=== PATIENT | female | born 1985 | race Caucasian/White ===

== ENCOUNTER 2018-09-21 10:02 | Emergency (ER) | payer OTHER, MEDICAID, SELFPAY ==
[2018-09-21 10:05] VITALS: BP 108/71; PULSE 75; RESP 14; TEMP 36.5; O2SAT 97; BMI 40.5
--- NOTE | 2018-09-21 10:56 | ED.PSYCH ---
HPI - Psych General Chief Complaint: Psychiatric Symptoms Stated Complaint: depression Time Seen by Provider: 09/21/18 10:32 Source: patient Mode of arrival: wheelchair Limitations: no limitations History of Present Illness HPI Narrative: Patient is a 33-year-old female with a history of anxiety and depression. She was at her mental health provider's office earlier today for a routine evaluation. It was during that time that the decision was made to send the patient to the emergency department for medical clearance given her prior cardiac history. It appears that the patient's anxiety depression has been worsening. She is currently under medication. Please see the mental health note from today for specifics. Patient states she is not suicidal. He is not homicidal. She has had suicidal thoughts in the past but not currently. She states she does need help. It was under the impression of the psychiatrist from her visit earlier today that she would benefit from an acute inpatient admission. Related Data Home Medications Medication Instructions Recorded Confirmed cholecalciferol (vitamin D3) 1,000 1,000 unit PO BID 02/16/18 09/21/18 unit capsule coenzyme Q10 100 mg capsule 100 mg PO QPM 02/16/18 09/21/18 levonorgestrel 20 mcg/24 hr (5 1 ea INTRAUTERINE DIRECTED each 02/16/18 09/21/18 years) intrauterine device propranolol 10 mg tablet 10 mg PO TID tab 02/16/18 09/21/18 topiramate 25 mg tablet 25 mg PO BID 03/16/18 09/21/18 Calcium Citrate And Vitamin D3 1 tab PO BID 09/21/18 09/21/18 ascorbic acid (vitamin C) 500 mg PO DAILY 09/21/18 09/21/18 ferrous sulfate 325 mg PO DAILY 09/21/18 09/21/18 fluoxetine 10 mg PO DAILY 09/21/18 09/21/18 levetiracetam 1,500 mg PO BID 09/21/18 09/21/18 lorazepam 0.25 mg PO BID-TID PRN 09/21/18 09/21/18 magnesium oxide 500 mg PO BID 09/21/18 09/21/18 pantoprazole 40 mg PO DAILY 09/21/18 09/21/18 potassium chloride 10 meq PO DAILY 09/21/18 09/21/18 triamcinolone acetonide 1 applic TOPICAL DIRECTED 09/21/18 09/21/18 Allergies Allergy/AdvReac Type Severity Reaction Status Date / Time pseudoephedrine AdvReac Intermediate heart Unverified 09/21/18 09:11 [PSEUDOEPHEDRINE] palpatations Sulfa (Sulfonamide AdvReac Mild HALLUCINATI Unverified 09/21/18 09:11 Antibiotics) ONS buspirone AdvReac leg Verified 09/21/18 09:11 tremors, increased anxiety Review of Systems Constitutional Denies headache(s) ENT Ears, Nose, Mouth, and Throat: Denies headache(s) Cardiovascular Denies chest pain and Denies dyspnea Respiratory Denies dyspnea Gastrointestinal Gastrointestinal: Denies abdominal pain Musculoskeletal Denies myalgias and Denies arthralgias Integumentary/Breasts Denies rash Neurologic Denies headache(s) Psychiatric Reports anxiety, Reports depression, Denies homicidal ideation and Denies suicidal ideation Hematologic/Lymphatic Denies easy bleeding and Denies easy bruising PFSH Medical History Anxiety (Acute) Depression (Acute) Surgical History No pertinent past surgical history (Acute) Social History Smoking Status: Never smoker Social History Smoking Status: Never smoker Exam Initial Vital Signs Initial Vital Signs: Vital Signs Temperature 97.7 F 09/21/18 10:05 Pulse Rate 75 09/21/18 10:05 Respiratory Rate 14 09/21/18 10:05 Blood Pressure 108/71 09/21/18 10:05 Pulse Oximetry 97 09/21/18 10:05 Const General: cooperative, healthy appearing, comfortable, well developed, well groomed and No acute distress Orientation: alert, awake and oriented x3 HENMT Head: normal to inspection and normocephalic Resp Effort & Inspection: normal respiratory effort Cardio Rate: regular rate Rhythm: regular rhythm GI Inspection: non-distended Palpation: soft and No firm Back/Spine/Pelvis Back: No CVA tenderness Skin Lesions: no lesions Rashes: no rashes Neuro General: alert, awake and oriented x3 Extrem General: normal to inspection and normal exam except as noted Psych Appearance: grossly normal and well kempt Course Orders Ordered: ED Orders 09/21/18 10:35 Consult to Eye Dropper Assembler Stat EKG-12 Lead Stat 09/21/18 10:54 Acetaminophen Stat Complete Blood Count AUTO DIFF Stat Comprehensive Metabolic Panel Stat Ethanol (ETOH) Stat Lipase Stat Partial Thromboplastin Time Stat Test Serum,Qual Stat Prothrombin Time INR Stat Salicylate Stat Thyroid Stimulating Hormone Stat 09/21/18 11:44 Urine Drug Screen, Rapid Stat Vital Signs - 8 hr 09/21/18 10:05 09/21/18 12:05 09/21/18 14:15 Temperature 97.7 F 98.3 F Pulse Rate 75 75 70 Respiratory Rate 14 18 16 Blood Pressure 108/71 Blood Pressure [Right Arm] 110/65 136/76 Pulse Oximetry 97 99 98 09/21/18 17:04 Temperature Pulse Rate 77 Respiratory Rate 18 Blood Pressure Blood Pressure [Right Arm] 104/66 Pulse Oximetry 99 MDM - Psych Lab Data Attestation: I reviewed the patient's lab results. Result diagrams: 09/21/18 10:54 09/21/18 10:54 Lab Results 09/21/18 09/21/18 09/21/18 Range/Units 10:54 10:54 10:54 WBC 5.7 (4.5-11.0) X10^3/uL RBC 3.84 L (4.0-5.2) X10^6/uL Hgb 12.1 (12.0-16.0) g/dL Hct 36.1 (36-46) % MCV 94.0 (80-100) fL MCH 31.4 (26-34) PG MCHC 33.4 (30-36) % RDW 13.7 (11.6-14.8) % Plt Count 214 (150-400) X10^3/uL Neut % (Auto) 43.5 L (50-75) % Lymph % (Auto) 47.8 H (25-40) % [place] % (Auto) 6.4 (3-14) % Eos % (Auto) 1.3 L (2-4) % Baso % (Auto) 1.0 (0-2) % Neut # (Auto) 2500 (2273-9121) /uL Lymph # (Auto) 2700 (8687-1873) /uL [place] # (Auto) 400 (0-900) /uL Eos # (Auto) 100 (0-450) /uL Baso # (Auto) 100 (0-100) /uL PT 11.1 (10.1-12.7) SECONDS INR 1.0 (0.9-1.3) APTT 34 (26.4-36.2) SECONDS Sodium 140 (137-145) mmol/L Potassium 4.1 (3.4-5.1) mmol/L Chloride 105 (98-107) mmol/L Carbon Dioxide 27 (22-32) mmol/L BUN 12 (7-17) mg/dL Creatinine 0.70 (0.52-1.04) mg/dL Estimated GFR > 60.0 (>60) mL/min BUN/Creatinine Ratio 17.1 (6-22) Glucose 84 (70-100) mg/dL Calcium 9.7 (8.4-10.2) mg/dL Total Bilirubin 0.5 (0.2-1.3) mg/dL AST 33 (14-36) IU/L ALT 53 H (9-52) IU/L Alkaline Phosphatase 70 (38-126) U/L Total Protein 7.0 (6.3-8.2) g/dL Albumin 4.3 (3.5-5.0) g/dL Globulin 2.7 (1.7-4.1) g/dL Albumin/Globulin Ratio 1.6 (1.0-2.8) Lipase (23-300) U/L TSH (0.47-4.68) uIU/mL Serum , Qual (Negative) Salicylates (<20) mg/dL Urine Opiates Screen (Negative) Ur Oxycodone Screen (Negative) Urine Methadone Screen (Negative) Acetaminophen < 10 L (10-30) ug/mL Ur Barbiturates Screen (Negative) U Tricyclic Antidepress (Negative) Ur Phencyclidine Scrn (Negative) Ur Amphetamines Screen (Negative) U Methamphetamines Scrn (Negative) Ur MDMA Scrn (Ecstasy) (Negative) U Benzodiazepines Scrn (Negative) Urine Cocaine Screen (Negative) U Marijuana (THC) Screen (Negative) Ethyl Alcohol < 10 mg/dL 09/21/18 09/21/18 09/21/18 Range/Units 10:54 10:54 10:54 WBC (4.5-11.0) X10^3/uL RBC (4.0-5.2) X10^6/uL Hgb (12.0-16.0) g/dL Hct (36-46) % MCV (80-100) fL MCH (26-34) PG MCHC (30-36) % RDW (11.6-14.8) % Plt Count (150-400) X10^3/uL Neut % (Auto) (50-75) % Lymph % (Auto) (25-40) % [place] % (Auto) (3-14) % Eos % (Auto) (2-4) % Baso % (Auto) (0-2) % Neut # (Auto) (8941-5944) /uL Lymph # (Auto) (3845-4070) /uL [place] # (Auto) (0-900) /uL Eos # (Auto) (0-450) /uL Baso # (Auto) (0-100) /uL PT (10.1-12.7) SECONDS INR (0.9-1.3) APTT (26.4-36.2) SECONDS Sodium (137-145) mmol/L Potassium (3.4-5.1) mmol/L Chloride (98-107) mmol/L Carbon Dioxide (22-32) mmol/L BUN (7-17) mg/dL Creatinine (0.52-1.04) mg/dL Estimated GFR (>60) mL/min BUN/Creatinine Ratio (6-22) Glucose (70-100) mg/dL Calcium (8.4-10.2) mg/dL Total Bilirubin (0.2-1.3) mg/dL AST (14-36) IU/L ALT (9-52) IU/L Alkaline Phosphatase (38-126) U/L Total Protein (6.3-8.2) g/dL Albumin (3.5-5.0) g/dL Globulin (1.7-4.1) g/dL Albumin/Globulin Ratio (1.0-2.8) Lipase 145 (23-300) U/L TSH 1.36 (0.47-4.68) uIU/mL Serum , Qual Negative (Negative) Salicylates < 1.0 (<20) mg/dL Urine Opiates Screen (Negative) Ur Oxycodone Screen (Negative) Urine Methadone Screen (Negative) Acetaminophen (10-30) ug/mL Ur Barbiturates Screen (Negative) U Tricyclic Antidepress (Negative) Ur Phencyclidine Scrn (Negative) Ur Amphetamines Screen (Negative) U Methamphetamines Scrn (Negative) Ur MDMA Scrn (Ecstasy) (Negative) U Benzodiazepines Scrn (Negative) Urine Cocaine Screen (Negative) U Marijuana (THC) Screen (Negative) Ethyl Alcohol mg/dL 09/21/18 Range/Units 11:44 WBC (4.5-11.0) X10^3/uL RBC (4.0-5.2) X10^6/uL Hgb (12.0-16.0) g/dL Hct (36-46) % MCV (80-100) fL MCH (26-34) PG MCHC (30-36) % RDW (11.6-14.8) % Plt Count (150-400) X10^3/uL Neut % (Auto) (50-75) % Lymph % (Auto) (25-40) % [place] % (Auto) (3-14) % Eos % (Auto) (2-4) % Baso % (Auto) (0-2) % Neut # (Auto) (6870-7422) /uL Lymph # (Auto) (0708-6882) /uL [place] # (Auto) (0-900) /uL Eos # (Auto) (0-450) /uL Baso # (Auto) (0-100) /uL PT (10.1-12.7) SECONDS INR (0.9-1.3) APTT (26.4-36.2) SECONDS Sodium (137-145) mmol/L Potassium (3.4-5.1) mmol/L Chloride (98-107) mmol/L Carbon Dioxide (22-32) mmol/L BUN (7-17) mg/dL Creatinine (0.52-1.04) mg/dL Estimated GFR (>60) mL/min BUN/Creatinine Ratio (6-22) Glucose (70-100) mg/dL Calcium (8.4-10.2) mg/dL Total Bilirubin (0.2-1.3) mg/dL AST (14-36) IU/L ALT (9-52) IU/L Alkaline Phosphatase (38-126) U/L Total Protein (6.3-8.2) g/dL Albumin (3.5-5.0) g/dL Globulin (1.7-4.1) g/dL Albumin/Globulin Ratio (1.0-2.8) Lipase (23-300) U/L TSH (0.47-4.68) uIU/mL Serum , Qual (Negative) Salicylates (<20) mg/dL Urine Opiates Screen Negative (Negative) Ur Oxycodone Screen Negative (Negative) Urine Methadone Screen Negative (Negative) Acetaminophen (10-30) ug/mL Ur Barbiturates Screen Negative (Negative) U Tricyclic Antidepress Negative (Negative) Ur Phencyclidine Scrn Negative (Negative) Ur Amphetamines Screen Negative (Negative) U Methamphetamines Scrn Negative (Negative) Ur MDMA Scrn (Ecstasy) Negative (Negative) U Benzodiazepines Scrn Positive H (Negative) Urine Cocaine Screen Negative (Negative) U Marijuana (THC) Screen Negative (Negative) Ethyl Alcohol mg/dL Urine Dip Bedside Urine Glucose Negative Bedside Urine Bilirubin - Negative Bedside Urine Ketone - Negative Urine Specific [place] 1.015 Bedside Urine Occult Blood - Negative Bedside Urine pH 8.0 Bedside Urine Protein - Negative Bedside Urine Urobilinogen - Negative Bedside Urine Nitrite - Negative Bedside Urine Leukocytes - Negative Esterase ECG Data Attestation: I personally reviewed and interpreted this ECG as follows: Prior ECG tracings: not available for review Interpretation: Atrially paced Ventricular rate is 75 Normal axis Normal QRS Normal QTC No ST T wave changes MDM Narrative Medical decision making narrative: Patient is medically cleared. Patient is voluntary. Social work is involved. Patient has ambulated since being here in the emergency department. Social work has evaluated the patient. Awaiting bed placement. Care turned over to night ED provider at change of shift. Discharge Plan Departure Prescriptions: No Action coenzyme Q10 [Co Q-10] 100 mg capsule 100 mg PO QPM RF: 0 cholecalciferol (vitamin D3) 1,000 unit capsule 1,000 unit PO BID RF: 0 levonorgestrel [Mirena] 20 mcg/24 hr (5 years) intrauterine device 1 ea Intrauterine DIRECTED RF: 0 propranolol 10 mg tablet 10 mg PO TID RF: 0 topiramate [Topamax] 25 mg tablet 25 mg PO BID RF: 0 potassium chloride 10 mEq tablet extended release 10 meq PO DAILY RF: 0 triamcinolone acetonide 0.1 % cream 1 applic Topical DIRECTED RF: 0 lorazepam 0.5 mg Tablet 0.25 mg PO BID-TID PRN (Reason: anxiety/seizures) RF: 0 ferrous sulfate 325 mg (65 mg iron) Tablet 325 mg PO DAILY RF: 0 ascorbic acid (vitamin C) 500 mg Tablet,Chewable 500 mg PO DAILY RF: 0 magnesium oxide 500 mg Tablet 500 mg PO BID RF: 0 levetiracetam 1,000 mg tablet 1,500 mg PO BID RF: 0 pantoprazole [address] For Susp In Packet 40 mg PO DAILY RF: 0 Calcium Citrate And Vitamin D3 1 tab PO BID RF: 0 fluoxetine 10 mg tablet 10 mg PO DAILY RF: 0
--- NOTE | 2018-09-21 10:59 | PC.NURSE ---
Mother has stepped away. Curtain open. In view of nursing station. Ordered lunch. Denies needs at this time.
[2018-09-21 11:07] LABS: Add Manual Diff / Slide Review NO; Basophils Absolute Auto 100 /uL (0-100); Eosinophils Absolute Auto 100 /uL (0-450); Eosinophils Percent Auto 1.3 % (2-4); Hematocrit 36.1 % (36-46); Hemoglobin 12.1 g/dL (12.0-16.0); Lymphocytes Absolute Auto 2700 /uL (1100-4500); Lymphocytes Percent Auto 47.8 % (25-40); Mean Corpuscular HGB Conc 33.4 % (30-36); Mean Corpuscular Hemoglobin 31.4 PG (26-34); Monocytes Absolute Auto 400 /uL (0-900); Monocytes Percent Auto 6.4 % (3-14); Neutrophils Absolute Auto 2500 /uL (1500-7000); Neutrophils Percent Auto 43.5 % (50-75); Platelet Count 214 X10^3/uL (150-400); Red Blood Cell Count 3.84 X10^6/uL (4.0-5.2); Red Cell Distribution Width 13.7 % (11.6-14.8); White Blood Cell Count 5.7 X10^3/uL (4.5-11.0)
[2018-09-21 11:13] LABS: Prothrombin Time 11.1 SECONDS (10.1-12.7)
[2018-09-21 11:15] LABS: PTT Partial Thromboplastin Tim 34 SECONDS (26.4-36.2)
[2018-09-21 11:20] LABS: Acetaminophen < 10 ug/mL (10-30); Alanine Aminotransferase 53 IU/L (9-52); Albumin 4.3 g/dL (3.5-5.0); Albumin Globulin Ratio 1.6 (1.0-2.8); Alkaline Phosphatase 70 U/L (38-126); Aspartate Aminotransferase 33 IU/L (14-36); BUN Creatinine Ratio 17.1 (6-22); Bilirubin Total 0.5 mg/dL (0.2-1.3); Blood Urea Nitrogen 12 mg/dL (7-17); Calcium 9.7 mg/dL (8.4-10.2); Carbon Dioxide 27 mmol/L (22-32); Chloride 105 mmol/L (98-107); Estimated Glomerular Filt Rate > 60.0 mL/min (>60); Ethanol (ETOH) < 10 mg/dL; Globulin 2.7 g/dL (1.7-4.1); Glucose 84 mg/dL (70-100); HEMOLYSIS < 15 (0-50); Lipase 145 U/L (23-300); Potassium 4.1 mmol/L (3.4-5.1); Sodium 140 mmol/L (137-145)
[2018-09-21 11:22] LABS: Salicylate < 1.0 mg/dL (<20)
[2018-09-21 11:28] LABS: Pregnancy Test Serum,Qual Negative (Negative)
[2018-09-21 11:53] LABS: Urine Amphetamines Negative (Negative); Urine Barbiturates Negative (Negative); Urine Benzodiazepines Positive (Negative); Urine Cocaine Negative (Negative); Urine MDMA Negative (Negative); Urine Methamphetamines Negative (Negative); Urine Morphine/Opi cutoff 2000 Negative (Negative); Urine Phencyclidine Negative (Negative); Urine Tetrahydrocannabinol Negative (Negative)
[2018-09-21 11:54] LABS: Urine Methadone Negative (Negative); Urine Oxycodone Negative (Negative); Urine Tricyclic Antidepressant Negative (Negative)
[2018-09-21 11:55] LABS: Thyroid Stimulating Hormone 1.36 uIU/mL (0.47-4.68)
[2018-09-21 12:05] VITALS: BP 110/65; PULSE 75; RESP 18; TEMP 36.8; O2SAT 99
--- NOTE | 2018-09-21 12:13 | PC.NURSE ---
Of note: Mobility, pt requires minimal assist w/ ADLs. Uses walker and /or wheel chair for mobility.
[2018-09-21 14:15] VITALS: BP 136/76; PULSE 70; RESP 16; O2SAT 98
--- NOTE | 2018-09-21 16:39 | CM.SWNOTE ---
PRINTED CIRCUIT LAYOUT TAPER Note: Received request from Emergency Department RN/Rosa for psychiatric placement today. Per notes patient sent from mental health appointment with Dr. Esteban for suicidal ideations. Patient is a 33yr old female with h/o TBI in 2017. Patient also with h/o depression and anxiety. PRINTED CIRCUIT LAYOUT TAPER met with patient and her Mother at bedside. Patient confirms that she would like to voluntarily go to inpatient mental health for hallucinations and suicidal ideations. Patient reports that she has been hearing satan and that he has been telling her to kill myself. Patient last heard voices on Thursday09-19-18. Patient denies any previous inpatient psychiatric placements. Patient has actively been going to counseling and seeing Dr. Esteban for medication. Per patient her depression has worsened over the last few months. Patient uses walker at baseline, otherwise I in all ADL's. Patient does not believe that she will have any issues at facility with her walker. Spoke briefly with Dr. Esteban via the telephone. She confirms that she would like patient to go inpatient if bed can be found. Notified patient, Dr. Esteban and Mother that inpatient voluntary bed would need to be found. Placed call and fax to the following facilities: [facility], [facility], and [facility]. ED/PRINTED CIRCUIT LAYOUT TAPER came on at 4:00pm and case transferred to her for continued follow up and hopeful placement this evening. P: Pending. ROGERS Jane
[2018-09-21 17:04] VITALS: BP 104/66; PULSE 77; RESP 18; O2SAT 99
--- NOTE | 2018-09-21 17:33 | PC.NURSE ---
Per Dr. Barahona, pt may take her own medications, mother dispensing.
--- NOTE | 2018-09-21 19:51 | CM.SWNOTE ---
ED FOLDER GLUER OPERATOR NOTE: Presenting Problem: Pt is a 33 yo woman who looks approximately her stated age. The reason for coming to the ED is that pt's psychiatrist wanted her to be medically cleared in the emergency department and to be hospitalized. Pt is in agreement and stated that she has been increasingly depressed. She admitted to having some AH in the past, but not currently. They have been of concern since it was a voice telling her to kill herself. Precipitating Events: Pt reported that she had been in counseling with [facility] for 7 years until she retired this past June. She does have a new therapist, but is just in the beginning stages of getting to know her. Additional stressors include, her psychiatrist going on maternity leave next week, her father has advanced dementia, a difficult relationship with her sister who stays every weekend at the house she lives in with her mother and an anoxic brain injury that occurred 2016. Pt has a TBI, but according to her mother is almost at baseline except for her decision making ability. Mental Status Exam: Pt is a 33 yo female who looks to be her stated age. Speech is a little slow, but normal for rate and rhythm and is clear and goal directed. Afffect is flat, at times labile. Mood is depressed and anxious. SI/HI. Pt admits to thoughts of wanting to , but has no plan. She has expressed having some AH with a male voice stating I want to kill myself Pt denied HI, but mother reported anger outbursts. Pt is Ox4, but no formal memory testing was conducted. Goal: FOLDER GLUER OPERATOR is conducting bed search as pt, her mother and her psychiatrist feel that this is needed for pt to be safe. Discharge Planning/Care Management ED Crisis Response Assessment Start: 09/21/18 19:43 Freq: Status: Active Protocol: Document 09/21/18 19:43 (Rec: 09/21/18 19:51 [id number]) ED Crisis Response Assessment FOLDER GLUER OPERATOR Assessment Type Risk of Suicide Reason for FOLDER GLUER OPERATOR Referral Pt referred by Dr Esteban for inpatient hospitalization. Pt has expressed SI without a plan. Referred by Deanna Bragg, FOLDER GLUER OPERATOR has seen pt today and this FOLDER GLUER OPERATOR picked up pt when shift in ED began. Presenting Problem SI, no plan. Pt stated to this PHARMACOVIGILANCE SAFETY EXPERT that she hears a male voice in her head saying I want to kill myself. Pt also reported that she has thoughts and voices about wanting to be with God or Konstantin and thinks this male voice is Satan. According to pt and her mother (who was present in the room the first time SW spoke with pt) depression has been worse in the last couple of months. Mental health diagnosis Major depressive disorder, recurrent episode, severe with anxious distress. Generalized ANziety Disorder, Persistent Depressive disorder, Tricotillomania VOA/CMS check No Suicidal thoughts Yes: no plan Past Suicidal thoughts Yes Current Suicidal thoughts No Current plan for self harm No Thoughts of harm to others No: Mother stated pt has said she had some HI towards mother . Current thoughts of harming others No Current Risk factors Marital and family difficulties Relevant Medical History pace maker, TBI, Crisis Plan FOLDER GLUER OPERATOR has doen bed search, but no bed has been found. Pt to remain in the ED overnight with search to continue tomorrow. ED Psychiatric Symptoms Assessment Start: 09/21/18 10:07 Freq: Status: Active Protocol: Document 09/21/18 10:28 [facility] (Rec: 09/21/18 10:31 [facility] [id number]) Psychiatric Symptoms Assessment Symptoms/Complaint Feels Depressed Duration Getting Worse History Of Same Yes: Seeing Dr. Esteban Context Unknown Improves With Nothing Worsens With Nothing Associated Psychiatric Symptoms None Associated Symptoms Denies Other Symptoms Insomnia If Self Harm Admits Thoughts of Self Harm Details of Plan Admits to thoughts of self harm such as picking at skin ( noted healing scabs on extremities) but denies active suicidal self harm. Level of Consciousness Alert Appropriate Awake Patient Orientation Name Age Birthday Month Date Year Day of Week Place Situation Patient Behavior/Mood Cooperative Fatigued Flat Ability to Follow Directions Good Patient Cognition Impaired No: pt a/o x 3. has h/o TBI and has caregiver but can participate in care. Affect Description Anxious Calm Depressed Flat Hallucination Type None Delusion Description Not Present Thought Process: Normal Depressive Symptoms Changes in Appetite Difficulty Concentrating Difficulty Sleeping Difficulty Making Decisions Feelings of Worthlessness Hopelessness Increased Anxiety Increased Fatigue Increased Irritability Insomnia Loss of Energy Loss of Interest in Activities Low Self Esteem Recurrent Thoughts of or Suicide Unhappiness Major Depressive Episode Yes Feelings of Hopelessness Yes Suicidal Ideation Vague Suicide Plan No Plan Homicidal Ideation None Nausea/Vomiting None Document 09/21/18 19:37 [facility] (Rec: 09/21/18 19:42 BG [id number]) Psychiatric Symptoms Assessment Symptoms/Complaint Suicidal Ideation Duration Constant Associated Psychiatric Symptoms Auditory Hallucinations Suicidal Ideation If Self Harm Admits Thoughts of Self Harm Level of Consciousness Alert Appropriate Awake Patient Orientation Name Age Birthday Place Situation Patient Behavior/Mood Anxious Cooperative Crying/Tearful Fearful Flat Patient Cognition Impaired Yes: Pt has TBI which ( according to her mother) impacts decision making. Affect Description Anxious Depressed Labile Patient Appearance Well Groomed Hallucination Type Auditory Delusion Description Not Present Thought Process: Normal Goal-directed Depressive Symptoms Hopelessness Increased Anxiety Low Self Esteem Recurrent Thoughts of or Suicide Major Depressive Episode Yes Suicidal Ideation Vague Suicide Plan No Plan Homicidal Ideation None
--- NOTE | 2018-09-21 20:11 | CM.SWNOTE ---
BED SEARCH [facility], and [facility] in [place] denied pt even though Dr Esteban contacted them after they received our information. [facility] [phone]. They said no inplanted devices, but if we did not find a bed, to call again on Thursday. [facility] [phone]- They called and requested more information, but said they thought pt would be too medically complicated. [facility] [phone] Left message Caryn Stevens [phone] No beds today. Call tomorrow to check. Caryn Warner: [phone] no beds today. Call tomorrow. I was also told that did not have beds. [facility] did not call back, but most likely pt too medically complicated. I did not contact [facility] I assumed she would be too complex for them.
--- NOTE | 2018-09-21 21:48 | PC.NURSE ---
Dr. Galloway received phone call from [facility] declining admission for transfer of pt.
[2018-09-21 22:00] VITALS: BP 114/72; PULSE 75; RESP 20; O2SAT 99
--- NOTE | 2018-09-21 22:20 | PC.NURSE ---
Pt took normal scheduled evening home medications per Dr Nilesh Mays.
--- NOTE | 2018-09-21 23:32 | PC.NURSE ---
[facility] called back to decline accepting pt as transfer due to complex neuro and cardiac medical hx. Dr Galloway aware.
[2018-09-22 06:24] VITALS: BP 115/64; PULSE 75; RESP 18; TEMP 37; O2SAT 96
--- NOTE | 2018-09-22 09:05 | CM.SWNOTE ---
Reviewed chart. Spoke w/ Dr Barahona this morning. Consuelo remains actively suicidal w/letter written by her describing intent in self harm. Discussed and reviewed efforts towards psychiatric placement w/ MARCI Rodriguez, TRIMMING MACHINE OPERATOR working closely w/ Dr Esteban. Sophia able to continue efforts this morning to investigate barriers to placement including too medically complicated and seek open beds in support of this 33 yo requiring safe placement. Following closely. Cha Alvarez TRIMMING MACHINE OPERATOR
--- NOTE | 2018-09-22 09:51 | PC.NURSE ---
pt requested to take her meds. Dr. Barahona approved for her to take her home meds. I stood next to her and helped to dispense the medications from her vials/bottles. pt took the following meds: lorazepam 0.25mg propanolol 10 mg Topamax 25 mg Keppra 1500 mg prozac 10 mg protonix 40mg potassium Chloride ER 10 meq Iron 65 mg Calcium Citrate 200 mg with Vit. D3,, 250 iu Vitamin D3 1000 iu Magnesium oxide 500 mg capsule Vit. c chewable 500mg the meds were locked in the locker when finished dispensing.
[2018-09-22 09:59] VITALS: BP 102/63; PULSE 75; RESP 14; TEMP 36.7; O2SAT 96
--- NOTE | 2018-09-22 11:59 | PC.NURSE ---
pt states that she feels like her blood sugar is low. worried that she might be a diabetic. reported that she was feeling light headed and dizzy during her bath. blood sugar checked and poc was 94. lunch arrived and pt was eating her food. reports she feels so much better knowing that her sugar is normal.
--- NOTE | 2018-09-22 13:23 | PC.NURSE ---
switched out ER jo[facility]ina to a inpatient bed. pt requested that I turn off all controls on the beds since i can't think or move with that butt noise
[2018-09-22 13:37] VITALS: BP 105/66; PULSE 75; RESP 12; O2SAT 95
--- NOTE | 2018-09-22 14:51 | CM.SWNOTE ---
Addendum entered by ROGERS Scott 09/22/18 15:36: Dr Esteban in direct communication w/ ER now. This TOOLMAKER HELPER will f/u tomorrow morning if Francie remains here. Per email from Sophia Rascon: [facility] [phone] [facility] [phone] Dr. Ewing, Line Camera Operator returned call and Dr. Esteban to call back re: [phone] Left two messages re: bed availability [facility] [phone] no beds [phone] no beds [facility] [phone] Dr. Esteban left message and left message [facility] [phone] spoke with Nelly in Admissions. Requested that SW?s fax (fax # [phone]) clinical information. Awaiting reply. Original Note: Reviewed chart this morning to understand efforts taken to secure a voluntary placement on behalf of this 33 yo. No beds found at this time. Contacted ROGERS Rodriguez, [facility] who is working closely w/ Dr Esteban in the outpt setting. According to Sophia, Dr Esteban continues to feel strongly that there is no secure and safe outpt plan for Consuelo today and Sophia offered assistance in placement efforts, this TOOLMAKER HELPER reviewed notes briefly w/ Sophia. Also provided number for the A bed placement line P# [phone]. As of [id number], Sophia has attempted [facility]. She also has contacted [facility]. This TOOLMAKER HELPER requested Bree/ ER PACKAGING CLERK to fax clinical to [facility] at F# [phone] earlier this afternoon. REY Lee RN updates this TOOLMAKER HELPER- [facility] has declined Consuelo for admission. Sophia now awaiting word from [facility] in case there is a voluntary bed placement available. The question will now be: Next Steps? This TOOLMAKER HELPER requested Sophia review w/ Dr Esteban today what is the LRO if there is not a psychiatric bed available? Dr Esteban is awaiting the of her baby and there is no psychiatrist that will take her place until next week. This TOOLMAKER HELPER unable to respond to any additional requests or people in the ER d/t caseload demands. This TOOLMAKER HELPER recommending Dr Esteban contact ER physician to discuss either admitting Consuelo vs LRO today if mom will take Consuelo home. All TBD as psychiatric beds are very limited today and Consuelo's acuity will likely not make her a strong competitive candidate for beds. She also has medical complicators which make psychiatric bed placement even more difficult. Following closely. ROGERS Scott
--- NOTE | 2018-09-22 15:22 | PC.NURSE ---
Pt continues to be calm, cooperative w/ staff. She has a depressed affect and states she would not feel comfortable going home but feels safe in ED and is happy to wait in ED for bed placement. Echo is eating and drinking but prefers not to have choices, I have a lot of trouble making decisions.... Writing reflects continued suicidal ideation. Pt denies any plan and states she would not try to harm herself in ED. Writing also reflects hearing a male voice in her head but denies verbally to this rfp writer. Noted picking at skin, verbally redirected w/o success. Mother states this is a long standing habit. No s/s of infection at this time. Echo is in a high visibility room. Her mother is visiting ad janae as is pastoral counseling. She has been offered a shower but instead preferred to get washed up in room. Echo is taking her home medications. She denies pain / discomfort. Sleeps on and off. Mother & Echo updated on current bed search. Echo wishes to stay in ED and wait for bed availability. Mother verbalized agreement.
[2018-09-22 15:58] VITALS: BP 120/79; PULSE 75; RESP 16; O2SAT 99
--- NOTE | 2018-09-22 16:52 | PC.NURSE ---
pt requested that she have us remove the bed and give her the stretcher back. stretcher returned to pt. pt is now eating dinner
--- NOTE | 2018-09-22 18:20 | PC.NURSE ---
Received call from Dr. Esteban (Psychiatry). Updated on patient status. Dr. Esteban suggested stopping fluoxitine and starting cymbalta 20 mg po daily to start tomorrow. Discussed w/ patient who agreed w/ plan of care.
[2018-09-22] MEDS: ACETAMINOPHEN 325 MG TABLET 650 MG PO (18:29)
[2018-09-22 18:30] VITALS: BP 125/80; PULSE 75; RESP 19; TEMP 36.6; O2SAT 100
--- NOTE | 2018-09-22 19:54 | PC.NURSE ---
regular meds ordered via Dr. Galloway. Pt has been taking home medications w/ nursing supervision.
[2018-09-22 22:12] VITALS: BP 111/76; PULSE 75; RESP 17; O2SAT 97
[2018-09-23] MEDS: LORazepam 0.5 MG TABLET 0.25 MG PO ×2 (08:43→20:54)
[2018-09-23] MEDS: levETIRAcetam 250 MG TABLET 1500 MG PO ×2 (08:44→20:54)
[2018-09-23] MEDS: PANTOPRAZOLE 20 MG TABLET 40 MG PO (08:45)
[2018-09-23] MEDS: DULOXETINE 20 MG CAPSULE PO (08:46)
[2018-09-23] MEDS: PROPRANOLOL 10 MG TABLET PO ×3 (08:47→20:54)
[2018-09-23] MEDS: POTASSIUM CHLORIDE 10 MEQ TAB PO (08:47)
[2018-09-23] MEDS: CALCIUM CITRATE 200 MG TABLET PO ×2 (08:47→20:54)
[2018-09-23] MEDS: FERROUS SULFATE 325 MG TABLET PO (08:48)
[2018-09-23] MEDS: CHOLECALCIFEROL (VITAMIN D3) 1,000 UNIT TABLET 1000 UNIT PO ×2 (08:48→20:54)
[2018-09-23] MEDS: ASCORBIC ACID 500 MG TABLET PO ×2 (08:49→20:55)
[2018-09-23] MEDS: MAGNESIUM OXIDE 400 MG TABLET PO ×2 (08:50→20:54)
--- NOTE | 2018-09-23 08:56 | PC.NURSE ---
dbas at bedside talking with patient.
--- NOTE | 2018-09-23 09:26 | PC.NURSE ---
Doctor Esteban at bedside talking to patient about plan of care.
[2018-09-23] MEDS: TOPIRAMATE 25 MG TABLET PO ×2 (09:32→20:57)
--- NOTE | 2018-09-23 10:46 | PC.NURSE ---
Patient has been able to walk to the bathroom with a front wheeled walker but gets dizzy once we get to the bathroom. I have been using a wheelchair to get her back to her room safely.
--- NOTE | 2018-09-23 11:06 | P.CONS_ITS ---
History of Present Illness Date Patient Seen: 09/23/18 Time Patient Seen: 09:30 Chief complaint: depression Reason for consult: Psychiatric Care Requesting provider: Shubham Barahona Narrative: CC: ?it?s up & down? HOSPITAL COURSE: Walked over to ED on 09/21/18 following outpatient visit with myself, with acute harm for self and severe depression symptoms, plan to pursue inpatient psychiatric admission. Medically clear, with stable vitals, stable labs, and EKG WNL. EKG 09/21/18 with QTc 413 Social Work has been active in exploring options for inpatient placement, but no bed has been found after 48 hr. Some facilities have limitations due to her medical conditions, also limited bed availability in the region currently. Discussed a plan with ED team to stop fluoxetine & start duloxetine 20mg today, and to check EKG for QTc later today. COLLATERAL FROM STAFF: Cooperative in the ED & no assistance needed with ADLs. Episode of VH overnight. Ambulating with rollator. INTERVIEW: Echo reports feeling ok at the moment in the ED this morning, but still up & down. She reports some visual hallucinations overnight, none this morning. She continues to have thoughts of being with Konstantin, or a man?s voice in her head telling her she should end her life. She reports feeling safe in the ED, but not safe going home today. Even though there are things at home that she misses (mentions her father & dog) she states that she would be overwhelmed just walking in the door wouldn?t feel safe, becomes tearful in our discussion. We reviewed that we have not been able to locate a hospital bed, but will continue to work on that today. We also discussed that we may need a backup plan in case we are unable to find an inpatient psychiatric bed & she expresses understanding, although becomes more withdrawn discussing certain options. We discussed crisis respite as a possibility, as well as trying to maximize any services available through her current caregiver, at [facility], or with her insurance plan. She would like to ultimately look at a plan for a new living situation, but becomes very withdrawn when considering talking to her mother about his. She is willing to have discussions about what resources for more support could look like. We discussed starting a new medication while she is in the ED, and reviewed information on duloxetine in the context of risk of long QT (low compared to other agents), common SE (nausea on empty stomach), and efficacy for depression & anxiety. She expresses understanding of these & willingness to continue plan to start with lowest dose of 20mg & titrate slowly if tolerating. Spoke with mother Frances via telephone, and reviewed that if hospital bed was not found, that we may need to see if another safe plan could be established. Also reviewed that we are trying to explore any additional resources that might be available, whether through [facility], or [facility], or [facility]. iTno expresses understanding of this, appreciation for the help, and willingness to discuss a safe alternative to hospitalization if necessary & appropriate. PFS Medical History Anxiety (Acute) Depression (Acute) Surgical History No pertinent past surgical history (Acute) Social History Smoking Status: Never smoker Social History Smoking Status: Never smoker Comment: [facility] Updates: Father with dementia, pt lives with mother in [place], no active substance use, has psychotherapist in [place] PERTINENT CHART REVIEW: Diagnoses by Dr. Khalil (pt?s neurologist): Anoxic encephalopathy, intractable chronic migraine, functional neurological symptom disorder with attacks/seizures (on keppra) Diagnoses by Dr. Ramirez (cardiology): h/o cardiac arrest with ICD in place, long QT syndrome caused by medication. Initial episode in 2011 while on venlafaxine, abilify, desipramine, promethazine; subsequent episode of cardiac arrest in Apr 2017 (on Prozac, abilify, lamictal). Myoclonus felt to be related to anoxic encephalopathy and not seizure disorder, confirmed with video EEG at in January 2018. Meds Home Medications Medication Instructions Recorded Confirmed Type cholecalciferol (vitamin D3) 1,000 1,000 unit PO BID 02/16/18 09/21/18 History unit capsule coenzyme Q10 100 mg capsule 100 mg PO QPM 02/16/18 09/21/18 History levonorgestrel 20 mcg/24 hr (5 1 ea INTRAUTERINE DIRECTED each 02/16/18 09/21/18 History years) intrauterine device propranolol 10 mg tablet 10 mg PO TID tab 02/16/18 09/21/18 History topiramate 25 mg tablet 25 mg PO BID 03/16/18 09/21/18 History Calcium Citrate And Vitamin D3 1 tab PO BID 09/21/18 09/21/18 History ascorbic acid (vitamin C) 500 mg PO DAILY 09/21/18 09/21/18 History ferrous sulfate 325 mg PO DAILY 09/21/18 09/21/18 History levetiracetam 1,500 mg PO BID 09/21/18 09/21/18 History lorazepam 0.25 mg PO BID-TID PRN 09/21/18 09/21/18 History magnesium oxide 500 mg PO BID 09/21/18 09/21/18 History pantoprazole 40 mg PO DAILY 09/21/18 09/21/18 History potassium chloride 10 meq PO DAILY 09/21/18 09/21/18 History triamcinolone acetonide 1 applic TOPICAL DIRECTED 09/21/18 09/21/18 History Allergies Allergy/AdvReac Type Severity Reaction Status Date / Time pseudoephedrine AdvReac Intermediate heart Verified 09/22/18 20:46 [PSEUDOEPHEDRINE] palpatations Sulfa (Sulfonamide AdvReac Mild HALLUCINATI Verified 09/22/18 20:46 Antibiotics) ONS buspirone AdvReac leg Verified 09/21/18 09:11 tremors, increased anxiety Review of Systems Review of Systems REVIEW OF SYSTEMS: +skin picking & itching, +mild MEADOWS, denies dizziness, denies nausea, no specific pain mentioned, +feeling shakiness at times, psych as in HPI All other systems negative. Exam Vital Signs (past 8 hours): Oxygen Delivery Method Room Air Narrative Exam Narrative: MENTAL STATUS EXAM Appearance: Neatly groomed with long brown hair pulled back, wearing hospital garb, appears stated age; arms covered in scabs Behavior: Calm, fair-limited eye contact, +psychomotor slowing; closes her eyes at times & often withdraws when feeling overwhelmed; trembling intermittently through visit Gait: none observed, sitting in bed Speech: slow speech, normal volume, +latency at times, monotone Mood: ?Terrible? Affect: Congruent with content, dysphoric, constricted range, tearful Thought Process: concrete Thought Content: +SI with strong desire but no plan, no evidence of HI, intermittent AH & VH, possible delusional content Attention: Attentive to interview Orientation: Oriented to person place and time Memory: Intact for interview, not formally tested Insight: Limited Judgment: Limited Objective Labs Result Diagrams: 09/21/18 10:54 09/21/18 10:54 Assessment & Plan Assessment & Plan narrative: ASSESSMENT: Echo Samayoa is a 33-year-old female with complex medical history including triple X syndrome, anoxic brain injury following cardiac arrest in 2017, functional neurological disorder (nonepileptic seizures), long QT syndrome (medication-induced) with history of cardiac arrest in 2012 & 2017 & subsequent ICD placement. She has a long history of depression and anxiety that have been difficult to manage, with sensitivity to medications, and dependent traits. Depression symptoms have been worsening over the past several months, with multiple attempts at medication changes, referral to IOP, neuropsych testing, starting with new therapist, all of which have either not been successful or not provided benefit. Clinic presentation 09/21/18 raised concern for psychotic symptoms & escalating risk of self-harm, and so we proceeded with plan for inpatient admission for safety & stabilization. I wonder if medications for other conditions could also be worsening anger & contributing to depression; she is on keppra for functional epilepsy, although I wonder if this could be influencing psychiatric symptoms. Greatly appreciate the ED team?s care of this patient & collaboration while we are looking for an inpatient bed. We have agreed to initiate a medication change, to stop fluoxetine & start duloxetine to target depression. Duloxetine has low known risk of QT prolongation, is a medication she has not tried previously, with more calming effect compared to fluoxetine & venlafaxine that have not been effective in the past. We are starting with low dose of 20mg, with plan to titrate slowly if tolerating. I am hesitant to use atypical antipsychotic agents given some past reactions & risk of QT prolongation with these agents. I continue to feel that Consuelo is suffering from severe depression with anxious distress & new intermittent psychotic symptoms (AH & delusions), and that her pattern of worsening symptoms over the past 2-3 months, 2 interactions with EMS in the past 1-2 weeks, and new suicidal ideation place her at high risk of self- harm outside of the hospital, and particularly at home as a place that continues to be an active stressor for her based on several factors. The most appropriate care can be provided on an inpatient psychiatric unit. However, in the event that a bed cannot be located, which has been the case so far based on several units declining, we may need to establish another plan. Patient?s mother has expressed willingness to discuss safe plan for return home with additional resources but only if we can have safeguards in place & a bed on an inpatient unit cannot be found. DIAGNOSES: Severe major depressive disorder with anxious distress, (rule out with psychotic features) Suicidal ideation Generalized anxiety disorder Long QT with h/o cardiac arrest, ICD in place Functional neurologic disorder (nonepileptic seizures) RECOMMENDATIONS: - Continue duloxetine 20mg QAM - Check EKG for QTc today - Appreciate SW help in continuing to locate an inpatient psychiatric bed, I am available for doc to doc if helpful - Continue to assess safety in the ED Thank you for involving me in this patient's care. I will plan to continue to follow patient while she is receiving care in our ED. Please contact me with questions or concerns at [phone]. Time Spent With Patient Time with patient: Greater than 35 minutes
[2018-09-23 13:21] VITALS: BP 110/71; PULSE 75; RESP 17; O2SAT 95
--- NOTE | 2018-09-23 13:34 | PC.NURSE ---
patient automobile service station manager mcginnis curious if new medication could alter her urine smell. Discussed symptom with provider and reassured patient that is not generally a side effect.
--- NOTE | 2018-09-23 15:21 | PC.NURSE ---
Patient reports some dizziness with ambulating to bathroom with walker. Assisted back to room with wheelchair. Vital signs rechecked.
[2018-09-23 15:48] VITALS: BP 105/71; PULSE 75; RESP 16; O2SAT 97
--- NOTE | 2018-09-23 15:52 | PC.NURSE ---
pt concerned of infection because her urine had a different smell, nurse ordered urine dip.
--- NOTE | 2018-09-23 17:09 | PC.NURSE ---
Patient mother remains at bedside. Patient provided dinner. Calm and cooperative.
[2018-09-23 18:04] VITALS: BP 105/69; PULSE 75; RESP 18; O2SAT 99
--- NOTE | 2018-09-23 18:13 | PC.NURSE ---
Patient sitting reading to her mother in semi dark room, patient suddenly felt like the room had moved, it was still intact but it felt like it was different, I know it is dark but it felt like the sunshine was shining in the room Patient reports feeling scared about the symptoms. Vital signs check all WNL. Patient alert and oriented. Denies auditory or visual hallucinations at this time. Reassured patient, dimmed lights and encouraged patient to rest. Placed on dark shades to help. Provider aware.
--- NOTE | 2018-09-23 18:39 | PC.NURSE ---
Spoke with mineral ore processing labourer at [facility], unable to accept patient at this time secondary to them feeling like the patients acuity is higher than their units ability at this time.
--- NOTE | 2018-09-23 19:23 | PC.NURSE ---
Discussed patient case with Shubham at [facility] for screening. They will review case and call back.
[2018-09-23 21:00] VITALS: PULSE 108; RESP 20; TEMP 36.6; O2SAT 98
[2018-09-24 01:32] VITALS: BP 110/66; PULSE 94; RESP 18; O2SAT 98
[2018-09-24 05:50] VITALS: BP 114/70; PULSE 75; RESP 20; TEMP 36.6; O2SAT 96
--- NOTE | 2018-09-24 07:26 | PC.NURSE ---
Obtained patient care. Patient resting in room. Reports having a decent night, able to get some rest. Reassured patient that breakfast was ordered. Plan for Dr Esteban to come in today and help figure out the plan of care. Patient reports intermittent hallucinations. Denies any current thoughts of SI.
--- NOTE | 2018-09-24 07:33 | PC.NURSE ---
Patient internal communications manager light asking for gloves to wear to help herself stop picking at her arms. Provided patient with medical gloves. Reports feeling slightly more anxious at this time.
--- NOTE | 2018-09-24 08:15 | PC.NURSE ---
Dr Esteban at bedside.
--- NOTE | 2018-09-24 08:27 | CM.SWNOTE ---
On Behalf of Sophia Rascon CORPORATE SECURITIES RESEARCH ANALYST, GEOPHYSICAL LABORATORY SUPERVISOR working on placement efforts in collaboration w/ Dr Esteban. Outpt resources also being researched: Inpatient Hospitals: [facility] [phone] no beds [place] [phone] no beds; on wait list [facility] [phone] no beds; faxed clinicals to Marly[facility]/L[facility] ([phone]); might be beds on 09.24 [place] [phone] will call after treatment team (10am) if bed; clinicals were faxed 09.22 [facility]ined [facility] Declined [place] Declined [facility] [phone] Declined Outpatient Resources: [facility] System Markup Clerk [phone] (Case Management Option) Spoke with Nya Cleary CM who reportedly speaks with client monthly. She submitted a request for the client to be assigned to a behavioral health caser. Client qualifies for all mental health services through [facility]. [facility] [phone] Spoke with staff who said that client can come in Thursday, Thursday or 8:30am to 10:30am to compete assessment and receive approved level of service. [facility] Resources/Res. Care Left message for June Mcdaniel, clark contact [phone] Esteban, patient has in-home caregiving assistance with [facility] [phone] Spoke with [facility] staff. Patient must call to request admission/complete screening, and hospital to send clinicals. Allowed 5 to 7 days of mental health stabilization. Updated Steffi, ED Director and Dr. Paulo Esteban will return on 09.24
[2018-09-24] MEDS: LORazepam 0.5 MG TABLET 0.25 MG PO ×3 (09:00→20:20)
[2018-09-24] MEDS: FERROUS SULFATE 325 MG TABLET PO (09:01)
[2018-09-24] MEDS: levETIRAcetam 250 MG TABLET 1500 MG PO ×2 (09:02→20:21)
[2018-09-24] MEDS: MAGNESIUM OXIDE 400 MG TABLET PO ×2 (09:03→20:21)
[2018-09-24] MEDS: ASCORBIC ACID 500 MG TABLET PO ×2 (09:03→20:21)
[2018-09-24] MEDS: PROPRANOLOL 10 MG TABLET PO ×3 (09:04→20:20)
[2018-09-24] MEDS: POTASSIUM CHLORIDE 10 MEQ TAB PO (09:04)
[2018-09-24] MEDS: DULOXETINE 20 MG CAPSULE PO (09:04)
[2018-09-24] MEDS: CHOLECALCIFEROL (VITAMIN D3) 1,000 UNIT TABLET 1000 UNIT PO ×2 (09:04→20:21)
[2018-09-24] MEDS: CALCIUM CITRATE 200 MG TABLET PO ×2 (09:05→20:21)
[2018-09-24] MEDS: TOPIRAMATE 25 MG TABLET PO ×2 (09:06→20:20)
[2018-09-24] MEDS: PANTOPRAZOLE 20 MG TABLET 40 MG PO (09:07)
--- NOTE | 2018-09-24 10:59 | PM.CN ---
History of Present Illness Date Patient Seen: 09/24/18 Time Patient Seen: 07:50 Chief complaint: depression Reason for consult: Psychiatric Care Requesting provider: Shubham Barahona Narrative: Chart Review: VSS, stable overnight, reporting intermittent hallucinations. Nursing notes also mention discussion with [facility] Samira for screening. No SW notes yesterday yet posted, this provider received verbal info that Caryn Stevens may be able to consider. 2 doses lorazepam 0.25mg prn yesterday Repeat EKG this AM with QTc 402 Interview: Echo reports feeling ok so far this morning, I woke her up for interview but states she was up previously. Eating ok. Some dizziness yesterday, but denies other new physical symptoms. Also states she has been drinking less water than typical. Denies hearing man's voice in the past 24 hr. Reports episodes of visual hallucinations including seeing the figure of Konstantin outside her room, some shadows but not vivid imagery. ER environment has been lower stimulation than at home, which is surprising to her. She denies planned to end her life currently, continues to have thoughts of being better off or with Konstantin. We reviewed how she might feel if she were to return home. She states that she would be happy to be back in some ways, but also knows that she would feel much more overwhelmed than she does now. She is hopeful that she would feel safe if she returned home but she is not sure, knows that things get very stressful and overwhelming and that is when she has more suicidal thoughts and worsening outbursts. Notes that when her mom comes to the ED her stress level increases. No side effects that she has noticed with duloxetine after 1st dose yesterday. No nausea. We reviewed a plan to recheck EKG today for QTC. [facility] Medical History Anxiety (Acute) Depression (Acute) Surgical History No pertinent past surgical history (Acute) Social History Smoking Status: Never smoker Social History Smoking Status: Never smoker Meds Home Medications Medication Instructions Recorded Confirmed Type cholecalciferol (vitamin D3) 1,000 1,000 unit PO BID 02/16/18 09/21/18 History unit capsule coenzyme Q10 100 mg capsule 100 mg PO QPM 02/16/18 09/21/18 History levonorgestrel 20 mcg/24 hr (5 1 ea INTRAUTERINE DIRECTED each 02/16/18 09/21/18 History years) intrauterine device propranolol 10 mg tablet 10 mg PO TID tab 02/16/18 09/21/18 History topiramate 25 mg tablet 25 mg PO BID 03/16/18 09/21/18 History Calcium Citrate And Vitamin D3 1 tab PO BID 09/21/18 09/21/18 History ascorbic acid (vitamin C) 500 mg PO DAILY 09/21/18 09/21/18 History ferrous sulfate 325 mg PO DAILY 09/21/18 09/21/18 History levetiracetam 1,500 mg PO BID 09/21/18 09/21/18 History lorazepam 0.25 mg PO BID-TID PRN 09/21/18 09/21/18 History magnesium oxide 500 mg PO BID 09/21/18 09/21/18 History pantoprazole 40 mg PO DAILY 09/21/18 09/21/18 History potassium chloride 10 meq PO DAILY 09/21/18 09/21/18 History triamcinolone acetonide 1 applic TOPICAL DIRECTED 09/21/18 09/21/18 History Allergies Allergy/AdvReac Type Severity Reaction Status Date / Time pseudoephedrine AdvReac Intermediate heart Verified 09/22/18 20:46 [PSEUDOEPHEDRINE] palpatations Sulfa (Sulfonamide AdvReac Mild HALLUCINATI Verified 09/22/18 20:46 Antibiotics) ONS buspirone AdvReac leg Verified 09/21/18 09:11 tremors, increased anxiety Review of Systems Constitutional Constitutional: Denies anorexia, Denies difficulty sleeping and Denies excessive sweating Eyes Eyes: Reports other visual disturbances and Reports sensitivity to light ENT Ears, Nose, Mouth, and Throat: No abnormal hearing and Yes dizziness Cardiovascular Cardiovascular: Denies chest pain Respiratory Respiratory: Denies cough Gastrointestinal Gastrointestinal: Denies nausea Musculoskeletal Musculoskeletal: Denies numbness Neurologic Neurologic: Denies abnormal hearing, Reports dizziness and Denies numbness Psychiatric Psychiatric: Reports as per HPI Endocrine Endocrine: Denies excessive sweating Exam Vital Signs (past 8 hours): - 09/24/18 05:50 Temperature 97.8 F Pulse Rate 75 Respiratory Rate 20 Blood Pressure [Right Arm] 114/70 Pulse Oximetry 96 Oxygen Delivery Method Room Air Narrative Exam Narrative: MENTAL STATUS EXAM Appearance: Neatly groomed with long brown hair pulled back, wearing hospital garb, appears stated age; arms covered in scabs Behavior: Calm, fair-limited eye contact, +psychomotor slowing; closes her eyes at times & often withdraws when feeling overwhelmed Gait: none observed, sitting in bed Speech: slow speech, normal volume, +latency at times, monotone Mood: ?up & down? Affect: Congruent with content, dysphoric, constricted range, tearful Thought Process: concrete Thought Content: +SI with strong desire but no plan, no evidence of HI, intermittent AH & VH, some delusional content Attention: Attentive to interview Orientation: Oriented to person place and time Memory: Intact for interview, not formally tested Insight: Limited Judgment: Limited Objective Labs Result Diagrams: 09/21/18 10:54 09/21/18 10:54 Assessment & Plan Assessment & Plan narrative: ASSESSMENT: Echo Samayoa is a 33-year-old female with complex medical history including triple X syndrome, anoxic brain injury following cardiac arrest in 2016, functional neurological disorder (nonepileptic seizures), long QT syndrome (medication-induced) with history of cardiac arrest in 2011 & 2016 & subsequent ICD placement. She has a long history of depression and anxiety that have been difficult to manage, with sensitivity to medications, and dependent traits. Depression symptoms have been worsening over the past several months, with multiple attempts at medication changes, referral to IOP, neuropsych testing, starting with new therapist, all of which have either not been successful or not provided benefit. Clinic presentation 09/21/18 raised concern for psychotic symptoms & escalating risk of self-harm, and so we proceeded with plan for inpatient admission for safety & stabilization. I wonder if medications for other conditions could also be worsening anger & contributing to depression; she is on keppra for functional epilepsy, although I wonder if this could be influencing psychiatric symptoms. Greatly appreciate the ED team?s care of this patient & collaboration while we are looking for an inpatient bed. We have agreed to initiate a medication change, to stop fluoxetine & start duloxetine to target depression. Duloxetine has low known risk of QT prolongation, is a medication she has not tried previously, with more calming effect compared to fluoxetine & venlafaxine that have not been effective in the past. We are starting with low dose of 20mg, with plan to titrate slowly if tolerating. I am hesitant to use atypical antipsychotic agents given some past reactions & risk of QT prolongation with these agents. I continue to feel that Consuelo is suffering from severe depression with anxious distress & new intermittent psychotic symptoms (AH & delusions), and that her pattern of worsening symptoms over the past 2-3 months, 2 interactions with EMS in the past 1-2 weeks, and new suicidal ideation place her at high risk of self-harm outside of the hospital, and particularly at home as a place that continues to be an active stressor for her based on several factors. The most appropriate care can be provided on an inpatient psychiatric unit. However, so far, despite significant efforts by social work staff we have been unable to locate an inpatient bed at a facility that will accept her. We have been able to start duloxetine in the emergency room, which is 1 intervention, and she has shown some stabilization outside of her home environment for a few days. In the event that we are unable to locate an inpatient bed today, we will work on a safe dispo plan for leaving the hospital as a bed is less likely to open up over the weekend. DIAGNOSES: Severe major depressive disorder with anxious distress, (rule out with psychotic features) Suicidal ideation Generalized anxiety disorder Long QT with h/o cardiac arrest, ICD in place Functional neurologic disorder (nonepileptic seizures) RECOMMENDATIONS: - Continue duloxetine 20mg QAM - Recheck EKG for QTc (done 09/24/18) - Appreciate SW help in continuing to locate an inpatient psychiatric bed, I am available for doc to doc if helpful - Appreciate SW help in working on safe discharge plan in the even that an inpatient bed is unable to be secured. See SW note 09/24/18 for reference & resources being explored - Continue to assess safety in the ED - If discharging from the ED to home, we will arrange f/u in our clinic within 10 days Thank you for involving me in this patient's care. I will plan to continue to follow patient while she is receiving care in our ED. Please contact me with questions or concerns at [phone]. Time Spent With Patient Time with patient: 25 - 35 minutes
--- NOTE | 2018-09-24 11:04 | P.CONS_ITS ---
History of Present Illness Date Patient Seen: 09/24/18 Time Patient Seen: 07:50 Chief complaint: depression Reason for consult: Psychiatric Care Requesting provider: Shubham Barahona Narrative: Chart Review: VSS, stable overnight, reporting intermittent hallucinations. Nursing notes also mention discussion with [facility] Samira for screening. No SW notes yesterday yet posted, this provider received verbal info that Caryn Stevens may be able to consider. 2 doses lorazepam 0.25mg prn yesterday Repeat EKG this AM with QTc 402 Interview: Echo reports feeling ok so far this morning, I woke her up for interview but states she was up previously. Eating ok. Some dizziness yesterday, but denies other new physical symptoms. Also states she has been drinking less water than typical. Denies hearing man's voice in the past 24 hr. Reports episodes of visual hallucinations including seeing the figure of Konstantin outside her room, some shadows but not vivid imagery. ER environment has been lower stimulation than at home, which is surprising to her. She denies planned to end her life currently, continues to have thoughts of being better off or with Konstantin. We reviewed how she might feel if she were to return home. She states that she would be happy to be back in some ways, but also knows that she would feel much more overwhelmed than she does now. She is hopeful that she would feel safe if she returned home but she is not sure, knows that things get very stressful and overwhelming and that is when she has more suicidal thoughts and worsening outbursts. Notes that when her mom comes to the ED her stress level increases. No side effects that she has noticed with duloxetine after 1st dose yesterday. No nausea. We reviewed a plan to recheck EKG today for QTC. [facility] Medical History Anxiety (Acute) Depression (Acute) Surgical History No pertinent past surgical history (Acute) Social History Smoking Status: Never smoker Social History Smoking Status: Never smoker Meds Home Medications Medication Instructions Recorded Confirmed Type cholecalciferol (vitamin D3) 1,000 1,000 unit PO BID 02/16/18 09/21/18 History unit capsule coenzyme Q10 100 mg capsule 100 mg PO QPM 02/16/18 09/21/18 History levonorgestrel 20 mcg/24 hr (5 1 ea INTRAUTERINE DIRECTED each 02/16/18 09/21/18 History years) intrauterine device propranolol 10 mg tablet 10 mg PO TID tab 02/16/18 09/21/18 History topiramate 25 mg tablet 25 mg PO BID 03/16/18 09/21/18 History Calcium Citrate And Vitamin D3 1 tab PO BID 09/21/18 09/21/18 History ascorbic acid (vitamin C) 500 mg PO DAILY 09/21/18 09/21/18 History ferrous sulfate 325 mg PO DAILY 09/21/18 09/21/18 History levetiracetam 1,500 mg PO BID 09/21/18 09/21/18 History lorazepam 0.25 mg PO BID-TID PRN 09/21/18 09/21/18 History magnesium oxide 500 mg PO BID 09/21/18 09/21/18 History pantoprazole 40 mg PO DAILY 09/21/18 09/21/18 History potassium chloride 10 meq PO DAILY 09/21/18 09/21/18 History triamcinolone acetonide 1 applic TOPICAL DIRECTED 09/21/18 09/21/18 History Allergies Allergy/AdvReac Type Severity Reaction Status Date / Time pseudoephedrine AdvReac Intermediate heart Verified 09/22/18 20:46 [PSEUDOEPHEDRINE] palpatations Sulfa (Sulfonamide AdvReac Mild HALLUCINATI Verified 09/22/18 20:46 Antibiotics) ONS buspirone AdvReac leg Verified 09/21/18 09:11 tremors, increased anxiety Review of Systems Constitutional Constitutional: Denies anorexia, Denies difficulty sleeping and Denies excessive sweating Eyes Eyes: Reports other visual disturbances and Reports sensitivity to light ENT Ears, Nose, Mouth, and Throat: No abnormal hearing and Yes dizziness Cardiovascular Cardiovascular: Denies chest pain Respiratory Respiratory: Denies cough Gastrointestinal Gastrointestinal: Denies nausea Musculoskeletal Musculoskeletal: Denies numbness Neurologic Neurologic: Denies abnormal hearing, Reports dizziness and Denies numbness Psychiatric Psychiatric: Reports as per HPI Endocrine Endocrine: Denies excessive sweating Exam Vital Signs (past 8 hours): - 09/24/18 05:50 Temperature 97.8 F Pulse Rate 75 Respiratory Rate 20 Blood Pressure [Right Arm] 114/70 Pulse Oximetry 96 Oxygen Delivery Method Room Air Narrative Exam Narrative: MENTAL STATUS EXAM Appearance: Neatly groomed with long brown hair pulled back, wearing hospital garb, appears stated age; arms covered in scabs Behavior: Calm, fair-limited eye contact, +psychomotor slowing; closes her eyes at times & often withdraws when feeling overwhelmed Gait: none observed, sitting in bed Speech: slow speech, normal volume, +latency at times, monotone Mood: ?up & down? Affect: Congruent with content, dysphoric, constricted range, tearful Thought Process: concrete Thought Content: +SI with strong desire but no plan, no evidence of HI, intermittent AH & VH, some delusional content Attention: Attentive to interview Orientation: Oriented to person place and time Memory: Intact for interview, not formally tested Insight: Limited Judgment: Limited Objective Labs Result Diagrams: 09/21/18 10:54 09/21/18 10:54 Assessment & Plan Assessment & Plan narrative: ASSESSMENT: Echo Samayoa is a 33-year-old female with complex medical history including triple X syndrome, anoxic brain injury following cardiac arrest in 2016, func tional neurological disorder (nonepileptic seizures), long QT syndrome (medication-induced) with history of cardiac arrest in 2011 & 2016 & subsequent ICD placement. She has a long history of depression and anxiety that have been difficult to manage, with sensitivity to medications, and dependent traits. Depression symptoms have been worsening over the past several months, with multiple attempts at medication changes, referral to IOP, neuropsych testing, starting with new therapist, all of which have either not been successful or not provided benefit. Clinic presentation 09/21/18 raised concern for psychotic symptoms & escalating risk of self-harm, and so we proceeded with plan for inpatient admission for safety & stabilization. I wonder if medications for other conditions could also be worsening anger & contributing to depression; she is on keppra for functional epilepsy, although I wonder if this could be influencing psychiatric symptoms. Greatly appreciate the ED team?s care of this patient & collaboration while we are looking for an inpatient bed. We have agreed to initiate a medication change, to stop fluoxetine & start duloxetine to target depression. Duloxetine has low known risk of QT prolongation, is a medication she has not tried previously, with more calming effect compared to fluoxetine & venlafaxine that have not been effective in the past. We are starting with low dose of 20mg, with plan to titrate slowly if tolerating. I am hesitant to use atypical antipsy chotic agents given some past reactions & risk of QT prolongation with these agents. I continue to feel that Consuelo is suffering from severe depression with anxious distress & new intermittent psychotic symptoms (AH & delusions), and that her pattern of worsening symptoms over the past 2-3 months, 2 interactions with EMS in the past 1-2 weeks, and new suicidal ideation place her at high risk of self- harm outside of the hospital, and particularly at home as a place that continues to be an active stressor for her based on several factors. The most appropriate care can be provided on an inpatient psychiatric unit. However, so far, despite significant efforts by social work staff we have been unable to locate an inpatient bed at a facility that will accept her. We have been able to start duloxetine in the emergency room, which is 1 intervention, and she has shown some stabilization outside of her home environment for a few days. In the event that we are unable to locate an inpatient bed today, we will work on a safe dispo plan for leaving the hospital as a bed is less likely to op en up over the weekend. DIAGNOSES: Severe major depressive disorder with anxious distress, (rule out with psychotic features) Suicidal ideation Generalized anxiety disorder Long QT with h/o cardiac arrest, ICD in place Functional neurologic disorder (nonepileptic seizures) RECOMMENDATIONS: - Continue duloxetine 20mg QAM - Recheck EKG for QTc (done 09/24/18) - Appreciate SW help in continuing to locate an inpatient psychiatric bed, I am available for doc to doc if helpful - Appreciate SW help in working on safe discharge plan in the even that an inpatient bed is unable to be secured. See SW note 09/24/18 for reference & resources being explored - Continue to assess safety in the ED - If discharging from the ED to home, we will arrange f/u in our clinic within 10 days Thank you for involving me in this patient's care. I will plan to continue to follow patient while she is receiving care in our ED. Please contact me with questions or concerns at [phone]. Time Spent With Patient Time with patient: 25 - 35 minutes
--- NOTE | 2018-09-24 12:01 | PC.NURSE ---
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 Patient appears more anxious and expresses feeling a little more anxious about things. Reassured patient we would check her heart with a repeat EKG. Provider Laura esparza.
--- NOTE | 2018-09-24 12:11 | PC.NURSE ---
Patient restless, more anxious behavior over last hour with multiple different physiolgical complaints. Patient also expressed increase anxiety. Disucssed PRN dose of ativan to help, patient agrees that is a good plan. Repeat blood and ekg completed to evaluate chest pressure
--- NOTE | 2018-09-24 12:15 | PC.NURSE ---
[facility] called back declining transfer of patient secondary to medical acuity level. Transferred to [facility].
[2018-09-24 12:54] LABS: Troponin I < 0.012 ng/mL (0.01-0.034)
--- NOTE | 2018-09-24 14:42 | PC.NURSE ---
Extensive conversation at bedside with INFORMATION TECHNOLOGY OFFICER, Provider and this RN regarding discharge plan. Patient expresses feeling safe and comfortable with discharge plan. Patient contracts for safety and who to reach out to if she begins to feel unsafe at home. Patient attempting to arrange a ride home for discharge.
--- NOTE | 2018-09-24 14:50 | CM.SWNOTE ---
Addendum entered by Cha Alvarez PEEL OVEN TENDER 09/24/18 16:19: Conversation w/ Dr Esteban at 1500, [facility] has said they will accept Echo this afternoon. This PEEL OVEN TENDER unable to further coordinate, Dr Esteban aware and will plan to discuss further w/ ER staff. JW Original Note: Spoke w/Latrell Hogan this morning, addtl. review was done and pt too medically acute for the bed they have available. Also poke w/Laura at [facility] this morning. Faxed Dr Esteban's note from this morning when it was available. Laura said she would contact this PEEL OVEN TENDER after their 1000 morning bed rounds and never heard back. Dr Esteban has made multiple attempts to connect as well, no communication yes or no (?) from [facility]. Discussed outpt planning w/ both Dr Esteban and Sophia Rascon, PEEL OVEN TENDER, [facility] today and this PEEL OVEN TENDER agreed to f/u w/ [facility]/ [facility] triage re: w/e resources ? TC to [facility] triage, P# , they said there is no one available in [facility] to see Echo but she can call [facility] Triage on Thursday to request next day appt which would be scheduled for Thursday. See information below provided to Echo w/ RN Desiree and provider Reny at bedside: Outpatient Supportive Options: 1. Option 1 a. Home with Mom b. Continue with caregiver Christi through [facility] i. June Mcdaniel is printed circuit boards contact printer ? [phone] c. [facility] i. Follow-up with [employer] ([facility]) [id number] at and request ?next day appt. at the [facility]? Appt. will be arranged for Thursday or ii. [facility] Health walk-in assessment Thursday, Thursday or ? 8:30am to 10:30am, Phone ? [phone]; Address: [address] [place] [address] ...Let them know about ED stay and need for Intensive Outpatient support d. Follow-up with [facility] ? Main phone number - [phone] i. Pari Mutuel Clerk ? Nya Namigadde (use her direct line if you have it) ii. She has requested a behavioral health corrections caseworker, who will be calling Other Resources: Crisis Center in [place]/ Mental Health Stabilization: [phone] [place] [address] You must call and complete the screening process to be considered [facility] Crisis Line: Echo calm and cooperative, thanking staff this afternoon and able to plan for safety at home w/this PEEL OVEN TENDER and Reny Sanchez, ER provider. She does not have access to weapons and her mom can store any and all medications to include Tylenol and Ibuprofen. Echo has a list of numbers of supportive friends that she can call or text in moments of increased anxiety and/or agitation. She also has used the [facility] crisis line as support in the past. Echo denies prior attempt at suicide and denies current suicidal ideation. Mom has been left a msg and transportation is being worked on. Echo unsure if Christi can pick her up from ER or be with her this afternoon, Christi is unable to work over the w/e. Echo will attempt to call [facility] in hopes Christi can be reached. Plan: Home this afternoon w/family, outpt supportive options have been offered. Echo denying suicidal ideation. Feels this is a safe plan. ROGERS Scott
--- NOTE | 2018-09-24 15:47 | PC.NURSE ---
Patient very tearful after a stressful conversation with sister and mother. Patient reports conversation makes her head feel like it was put in a horticulture instructor and she feels like scratching her skin off Patient reassured that we are working on getting her to a safe place for inpatient hospitalization.
--- NOTE | 2018-09-24 17:09 | PC.NURSE ---
Dr Esteban at bedside speaking with patient.
[2018-09-24 18:47] VITALS: BP 130/80; PULSE 84; RESP 16; O2SAT 96
[2018-09-24 20:47] VITALS: BP 117/75; PULSE 79; RESP 18; TEMP 36.1; O2SAT 96
== END 2018-09-24 20:56 ==
PROVIDERS: Emergency Medicine; Emergency Provider Emergency Medicine; Family Provider Physician Assistant Medical; PCP Physician Assistant Medical
DX: F32.9 Major depressive disorder, single episode, unspecified (principal); F41.0 Panic disorder [episodic paroxysmal anxiety]
CPT/HCPCS: 36415; 80053; 80305; 80320; 80329; 81003; 82962; 83690; 84443; 84484; 84703; 85025; 85610; 85730; 90792; 90832; 93005; 93010; 99285; G0480

== ENCOUNTER 2019-04-10 17:04 | Emergency (ER) | payer OTHER, MEDICAID, SELFPAY ==
[2019-04-10 17:09] VITALS: BP 127/82; PULSE 75; RESP 16; TEMP 36.7; O2SAT 97; BMI 39.0
--- NOTE | 2019-04-10 17:38 | DI.RAD.S_ITS ---
PROCEDURE: XR CHEST 1V INDICATIONS: chest pain TECHNIQUE: One view of the chest was acquired. COMPARISON: None. FINDINGS: Surgical changes and devices: Dual-lead cardiac pacer Lungs and pleura: Lungs are clear. No pleural effusions or pneumothorax. Mediastinum: Mediastinal contours appear normal. Heart size is normal. Bones and chest wall: No suspicious bony lesions. Overlying soft tissues appear unremarkable. IMPRESSION: No acute disease Dictated by: Jon Barrios M.D. on 04/10/2019 at 20:00 Approved by: Jon Barrios M.D. on 04/10/2019 at 20:00
[2019-04-10 18:39] LABS: Add Manual Diff / Slide Review NO; Basophils Absolute Auto 100 /uL (0-100); Basophils Percent Auto 1.1 % (0-2); Eosinophils Absolute Auto 200 /uL (0-450); Hematocrit 37.8 % (36-46); Hemoglobin 12.6 g/dL (12.0-16.0); Lymphocytes Absolute Auto 2800 /uL (1100-4500); Lymphocytes Percent Auto 47.8 % (25-40); Mean Corpuscular HGB Conc 33.4 % (30-36); Mean Corpuscular Hemoglobin 31.4 PG (26-34); Mean Corpuscular Volume 94.2 fL (80-100); Monocytes Absolute Auto 300 /uL (0-900); Monocytes Percent Auto 5.3 % (3-14); Neutrophils Absolute Auto 2500 /uL (1500-7000); Neutrophils Percent Auto 42.8 % (50-75); Platelet Count 251 X10^3/uL (150-400); Red Blood Cell Count 4.01 X10^6/uL (4.0-5.2); Red Cell Distribution Width 13.6 % (11.6-14.8); White Blood Cell Count 5.9 X10^3/uL (4.5-11.0)
[2019-04-10 18:43] LABS: Creatine Kinase 41 U/L (30-135); Lipase 104 U/L (23-300)
[2019-04-10 18:56] LABS: Troponin I < 0.012 ng/mL (0.01-0.034)
[2019-04-10 18:57] LABS: Acetaminophen < 10 ug/mL (10-30); Alanine Aminotransferase 26 IU/L (9-52); Albumin 4.1 g/dL (3.5-5.0); Albumin Globulin Ratio 1.4 (1.0-2.8); Alkaline Phosphatase 91 U/L (38-126); Aspartate Aminotransferase 26 IU/L (14-36); BUN Creatinine Ratio 12.9 (6-22); Bilirubin Total 0.8 mg/dL (0.2-1.3); Blood Urea Nitrogen 9 mg/dL (7-17); Calcium 9.4 mg/dL (8.4-10.2); Carbon Dioxide 25 mmol/L (22-32); Chloride 107 mmol/L (98-107); Estimated Glomerular Filt Rate > 60.0 mL/min (>60); Ethanol (ETOH) < 10 mg/dL; Globulin 2.9 g/dL (1.7-4.1); Glucose 87 mg/dL (70-100); HEMOLYSIS < 15 (0-50); Potassium 3.5 mmol/L (3.4-5.1); Salicylate < 1.0 mg/dL (<20); Sodium 142 mmol/L (137-145)
[2019-04-10 19:01] LABS: B Type Natriuretic Peptide < 100 (<100)
[2019-04-10 19:15] LABS: Thyroid Stimulating Hormone 1.74 uIU/mL (0.47-4.68)
[2019-04-10 19:21] LABS: Urine Amphetamines Negative (Negative); Urine Barbiturates Negative (Negative); Urine Benzodiazepines Positive (Negative); Urine Cocaine Negative (Negative); Urine MDMA Negative (Negative); Urine Methadone Negative (Negative); Urine Methamphetamines Negative (Negative); Urine Morphine/Opi cutoff 2000 Negative (Negative); Urine Oxycodone Negative (Negative); Urine Phencyclidine Negative (Negative); Urine Tetrahydrocannabinol Negative (Negative); Urine Tricyclic Antidepressant Negative (Negative)
[2019-04-10 20:06] VITALS: BP 127/82; PULSE 75; RESP 16; TEMP 36.7; O2SAT 97; BMI 39.0
--- NOTE | 2019-04-10 20:08 | PC.NURSE ---
Pt in high viability room. As she has significant disability and requires occasional assist she prefers to be where she can see staff. She states she feels safe in ED. Has been seen in this ED in the past and feels comfortable and safe here. States she has no plan to self harm and will notify staff if that changes at all. Curtain open, q 15 min checks continue in place.
--- NOTE | 2019-04-10 20:36 | ED_ITS ---
HPI - Psych <Krupa Fong MD - Last Filed: 04/13/19 07:56> General Chief Complaint: Psychiatric Symptoms Stated Complaint: states psychiatric issues and ankles swelling Time Seen by Provider: 04/10/19 17:38 Source: patient Mode of arrival: ambulatory Limitations: no limitations History of Present Illness HPI Narrative: Patient comes emergency department complaining of depression and anxiety due to her home situation, which she describes as ?like living in a retirement?, as well as ongoing medical issues. Patient states that she is not currently suicidal, but she does not feel safe to go home because she cannot say that she would not try to kill herself if she went home. Patient states that she is trying to find an apartment or even an assisted living facility where she could live, but so far, she has not been successful. Patient currently lives at home with her mother. Her father in October, which is a recent stressor. Patient has a history of multiple medical problems, including triple X syndrome and anoxic brain injury. Related Data Home Medications Medication Instructions Recorded Confirmed coenzyme Q10 100 mg capsule 100 mg PO QPM 02/16/18 04/10/19 levonorgestrel 20 mcg/24 hours (5 1 ea INTRAUTERINE DIRECTED each 02/16/18 04/10/19 yrs) 52 mg intrauterine device propranolol 10 mg tablet 10 mg PO TID tab 02/16/18 04/10/19 topiramate 25 mg tablet 25 mg PO BID 03/16/18 04/10/19 ascorbic acid (vitamin C) 500 mg PO DAILY 09/21/18 04/10/19 ferrous sulfate 325 mg PO DAILY 09/21/18 04/10/19 levetiracetam 1,500 mg PO BID 09/21/18 04/10/19 magnesium oxide 500 mg PO BID 09/21/18 04/10/19 potassium chloride 10 meq PO DAILY 09/21/18 04/10/19 triamcinolone acetonide 1 applic TOPICAL DIRECTED 09/21/18 04/10/19 fluticasone propionate 50 1 spray NASAL DAILY #16 gram 10/22/18 04/10/19 mcg/actuation nasal spray,suspension calcium carb 300 mg-D3 800 1 tab PO DAILY 11/12/18 04/10/19 unit-mag ox 25 mg-endoscopy specialty technician 0.5 mg-paul-Zn tablet cholecalciferol (vitamin D3) 1,000 1,000 unit PO BID cap 11/12/18 04/10/19 unit capsule pantoprazole 40 mg tablet,delayed 40 mg PO DAILY #30 tab 12/03/18 04/10/19 release ranitidine HCl 150 mg tablet 150 mg PO DAILY #30 tab 12/03/18 04/10/19 sucralfate 100 mg/mL oral 1 ml PO QID #400 ml 12/03/18 04/10/19 suspension Lactobacillus-Bifidobacterium 30 1 cap PO .Q12 cap 03/16/19 04/10/19 billion cell capsule,delayed release Previous Rx's Medication Instructions Recorded duloxetine 30 mg capsule,delayed 30 mg PO BID #60 cap 01/20/19 release hydroxyzine HCl 25 mg tablet 25 mg PO TID-QID PRN #90 tab 02/10/19 risperidone 2 mg tablet 2 mg PO BEDTIME #30 tab 04/08/19 Allergies Allergy/AdvReac Type Severity Reaction Status Date / Time lactose Allergy Verified 04/11/19 12:32 pseudoephedrine AdvReac Intermediate heart Verified 04/08/19 15:32 [PSEUDOEPHEDRINE] palpatations Sulfa (Sulfonamide AdvReac Mild HALLUCINATI Verified 04/08/19 15:32 Antibiotics) ONS buspirone AdvReac leg Verified 04/08/19 15:32 tremors, increased anxiety Review of Systems <Krupa Fong MD - Last Filed: 04/13/19 07:56> Constitutional Constitutional: Denies chills, Denies fatigue, Denies fever(s), Denies frequent falls, Denies lethargy and Denies weakness Eyes Eyes: Denies change in vision, Denies eye discharge, Denies irritation and Denies loss of vision ENT Ears, Nose, Mouth, and Throat: Denies change in voice, Denies dizziness, Denies neck pain, Denies sore throat and Denies throat swelling Cardiovascular Cardiovascular: Denies chest pain, Denies irregular heart rhythm, Denies lightheadedness, Denies palpitations, Denies dyspnea, Denies dyspnea on exertion and Denies orthopnea Respiratory Respiratory: Denies cough, Denies dyspnea, Denies dyspnea on exertion and Denies wheezing Gastrointestinal Gastrointestinal: Denies abdominal pain, Denies change in bowel habits, Denies diarrhea, Denies nausea and Denies vomiting Genitourinary Genitourinary: Denies hematuria, Denies flank pain, Denies urinary incontinence and Denies urinary urgency Musculoskeletal Musculoskeletal: Denies back pain, Denies muscle weakness, Denies neck pain, Denies numbness and Denies tingling Integumentary/Breasts Skin/Breast: Denies pruritus, Denies erythema, Denies rash and Denies wounds Neurologic Neurologic: Denies behavioral changes, Denies confusion, Denies dizziness, Denies frequent falls, Denies loss of vision, Denies numbness, Denies tingling and Denies weakness Psychiatric Psychiatric: Reports anxiety, Denies behavioral changes, Denies confusion, Reports depression, Denies homicidal ideation and Reports suicidal ideation Endocrine Endocrine: Denies fatigue, Denies flushing and Denies palpitations Hematologic/Lymphatic Hematologic/Lymphatic: Denies easy bruising Allergic/Immunologic Allergic/Immunologic: Denies urticaria, Denies throat swelling and Denies wheezing PFSH <Krupa Fong MD - Last Filed: 04/13/19 07:56> Medical History Anxiety (Acute) Depression (Acute) Surgical History No pertinent past surgical history (Acute) Social History Smoking Status: Never smoker Social History Smoking Status: Never smoker Exam <Krupa Fong MD - Last Filed: 04/13/19 07:56> Initial Vital Signs Initial Vital Signs: Vital Signs Temperature 98.0 F 04/10/19 17:09 Pulse Rate 75 04/10/19 17:09 Respiratory Rate 16 04/10/19 17:09 Blood Pressure 127/82 04/10/19 17:09 Pulse Oximetry 97 04/10/19 17:09 Const General: cooperative and well developed Nutritional Appearance: well nourished Orientation: alert, awake, oriented x3 and not confused HENMT Head: normocephalic and atraumatic Ears: external ears normal and TM's normal bilaterally Nose: external nose normal and No nasal discharge Face and sinus: sinuses nontender, face symmetric, no sinus tenderness and No dry mucous membranes Mouth: oral mucosae normal and moist mucous membranes Teeth and gingiva: dentition normal Throat: tonsils normal and uvula midline Eyes General: appearance normal, both eyes and all related structures Eyelids: eyelids normal Conjunctivae: conjunctivae normal Sclera: sclerae normal Pupils: PERRL EOM: EOM intact bilaterally Neck Neck: normal visual inspection, trachea midline, No lymphadenopathy, No midline deformity and No JVD Lymphatic: No lymphedema Chest Chest: normal inspection of the chest Resp Effort & Inspection: normal respiratory effort, able to speak in complete sentences, no respiratory distress and no use of accessory muscles Auscultation: clear to auscultation bilaterally, no rales, no rhonchi and no wheezes Cardio Rate: regular rate Rhythm: regular rhythm Heart Sounds: no click, no gallops, no murmurs and no rubs Pulses: normal peripheral pulses GI Inspection: non-distended Palpation: soft, no hepatosplenomegaly, No guarding, No pulsatile mass and No tender Auscultation: normal bowel sounds Back/Spine/Pelvis Back: No CVA tenderness Cervical Spine: cervical ROM normal and No pain with cervical ROM Thoracic/Lumbar Spine: thoracic and lumbar spine normal to inspection Skin General: no rashes or lesions noted, No jaundice and No petechiae Neuro General: alert, oriented x3, gait normal and no focal motor deficits Speech: speech normal Extrem General: full ROM, no clubbing, cyanosis or edema, no pedal edema and no calf tenderness Other: Patient has no pitting or obvious edema in either of her lower extremities. Psych Appearance: well kempt Mental Status: mental status grossly normal Attitude: cooperative Thought Content: normal and suicidality Judgment: judgment good <Aliza Lyn, DO - Last Filed: 04/12/19 05:40> Initial Vital Signs Initial Vital Signs: Vital Signs Temperature 98.0 F 04/10/19 17:09 Pulse Rate 75 04/10/19 17:09 Respiratory Rate 16 04/10/19 17:09 Blood Pressure 127/82 04/10/19 17:09 Pulse Oximetry 97 04/10/19 17:09 <Reny Sanchez, DO - Last Filed: 04/12/19 08:17> Initial Vital Signs Initial Vital Signs: Vital Signs Temperature 98.0 F 04/10/19 17:09 Pulse Rate 75 04/10/19 17:09 Respiratory Rate 16 04/10/19 17:09 Blood Pressure 127/82 04/10/19 17:09 Pulse Oximetry 97 04/10/19 17:09 Course <Krupa Fong MD - Last Filed: 04/13/19 07:56> Course Course Narrative: The patient was evaluated with laboratory studies and EKG, and no significant abnormalities were found. The patient did not have any chest complaints, and her findings as far as the potential edema were minimal to none. I did have the transition social worker speak with the patient, and given the patient's to mulch his home situation, it was felt the patient would be best served by going to an inpatient setting, as she did not feel she could contract for safety at home. 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 Patient was willing to wait in the emergency department. She was deemed medically clear, and at this point, is awaiting updated on bed status and potentially being accepted to a mental health inpatient facility. The patient signed out to Dr. Sanchez pending disposition. Orders Ordered: Discontinued Medications Acetaminophen (Tylenol) 975 mg PO TID PRN PRN Reason: pain / discomfort Stop: 04/13/19 21:50 Last Admin: 04/11/19 09:55 Dose: 975 mg Documented by: Admin: 04/10/19 22:13 Dose: 975 mg Documented by: LARISA Ascorbic Acid (Vitamin C) 500 mg PO DAILY [facility] Last Admin: 04/11/19 09:58 Dose: 500 mg Documented by: LUZ Duloxetine HCl (Cymbalta) 30 mg PO BID [facility] Last Admin: 04/11/19 19:26 Dose: 30 mg Documented by: Admin: 04/11/19 09:56 Dose: 30 mg Documented by: Admin: 04/10/19 22:16 Dose: 30 mg Documented by: LARISA Ferrous Sulfate (Ferrous Sulfate) 325 mg PO DAILY [facility] Last Admin: 04/11/19 09:58 Dose: 325 mg Documented by: LUZ Hydroxyzine Pamoate (Vistaril) 25 mg PO QID PRN PRN Reason: Anxiety Stop: 04/13/19 21:43 Last Admin: 04/11/19 19:39 Dose: 25 mg Documented by: Admin: 04/10/19 22:17 Dose: 25 mg Documented by: LARISA Levetiracetam (Keppra) 1,500 mg PO BID [facility] Last Admin: 04/11/19 19:40 Dose: 1,500 mg Documented by: Admin: 04/11/19 09:56 Dose: 1,500 mg Documented by: Admin: 04/10/19 22:14 Dose: 1,500 mg Documented by: LARISA Magnesium Oxide (Mag Ox) 400 mg PO BID [facility] Last Admin: 04/11/19 19:28 Dose: 400 mg Documented by: Admin: 04/11/19 09:57 Dose: 400 mg Documented by: Admin: 04/10/19 22:15 Dose: 400 mg Documented by: LARISA Pantoprazole Sodium (Protonix) 40 mg PO DAILY [facility] Last Admin: 04/11/19 09:58 Dose: 40 mg Documented by: LUZ Potassium Chloride (Klor-Con M10) 10 meq PO DAILY [facility] Last Admin: 04/11/19 09:58 Dose: 10 meq Documented by: LUZ Propranolol HCl (Inderal) 10 mg PO TID [facility] Last Admin: 04/11/19 19:29 Dose: 10 mg Documented by: Admin: 04/11/19 09:57 Dose: 10 mg Documented by: Admin: 04/10/19 22:17 Dose: 10 mg Documented by: LARISA Ranitidine HCl (Zantac) 150 mg PO DAILY [facility] Ranitidine HCl (Zantac) 150 mg PO NOW ONE Stop: 04/11/19 19:38 Last Admin: 04/11/19 19:42 Dose: 150 mg Documented by: DAVID Risperidone (Risperdal) 2 mg PO BEDTIME [facility] Last Admin: 04/11/19 19:32 Dose: 2 mg Documented by: Admin: 04/10/19 22:17 Dose: 2 mg Documented by: LARISA Sucralfate (Carafate) 1 gm PO Q6HR [facility] Last Admin: 04/11/19 19:23 Dose: 1 gm Documented by: Admin: 04/11/19 09:55 Dose: 1 gm Documented by: Admin: 04/11/19 07:00 Dose: Not Given Documented by: Admin: 04/10/19 22:18 Dose: 1 gm Documented by: LARISA Topiramate (Topamax) 25 mg PO BID [facility] Last Admin: 04/11/19 19:33 Dose: 25 mg Documented by: Admin: 04/11/19 09:57 Dose: 25 mg Documented by: Admin: 04/10/19 22:16 Dose: 25 mg Documented by: LARISA Vitamin D (Vitamin D3) 1,000 unit PO DAILY [facility] Last Admin: 04/11/19 09:58 Dose: 1,000 unit Documented by: LUZ Vital Signs Vital signs: Vital Signs - 8 hr 04/11/19 13:04 04/11/19 13:50 04/11/19 14:56 Pulse Rate 78 74 72 Respiratory Rate 18 16 16 Blood Pressure [Left Arm] 104/71 117/64 104/74 Pulse Oximetry 97 95 95 04/11/19 16:00 Pulse Rate 74 Respiratory Rate 18 Blood Pressure [Left Arm] 107/54 L Pulse Oximetry 97 <Aliza Lyn, - Last Filed: 04/12/19 05:40> Orders Ordered: Discontinued Medications Acetaminophen (Tylenol) 975 mg PO TID PRN PRN Reason: pain / discomfort Stop: 04/13/19 21:50 Last Admin: 04/11/19 09:55 Dose: 975 mg Documented by: Admin: 04/10/19 22:13 Dose: 975 mg Documented by: LARISA Ascorbic Acid (Vitamin C) 500 mg PO DAILY [facility] Last Admin: 04/11/19 09:58 Dose: 500 mg Documented by: LUZ Duloxetine HCl (Cymbalta) 30 mg PO BID [facility] Last Admin: 04/11/19 19:26 Dose: 30 mg Documented by: Admin: 04/11/19 09:56 Dose: 30 mg Documented by: Admin: 04/10/19 22:16 Dose: 30 mg Documented by: LARISA Ferrous Sulfate (Ferrous Sulfate) 325 mg PO DAILY [facility] Last Admin: 04/11/19 09:58 Dose: 325 mg Documented by: LUZ Hydroxyzine Pamoate (Vistaril) 25 mg PO QID PRN PRN Reason: Anxiety Stop: 04/13/19 21:43 Last Admin: 04/11/19 19:39 Dose: 25 mg Documented by: Admin: 04/10/19 22:17 Dose: 25 mg Documented by: LARISA Levetiracetam (Keppra) 1,500 mg PO BID [facility] Last Admin: 04/11/19 19:40 Dose: 1,500 mg Documented by: Admin: 04/11/19 09:56 Dose: 1,500 mg Documented by: Admin: 04/10/19 22:14 Dose: 1,500 mg Documented by: LARISA Magnesium Oxide (Mag Ox) 400 mg PO BID [facility] Last Admin: 04/11/19 19:28 Dose: 400 mg Documented by: Admin: 04/11/19 09:57 Dose: 400 mg Documented by: Admin: 04/10/19 22:15 Dose: 400 mg Documented by: LARISA Pantoprazole Sodium (Protonix) 40 mg PO DAILY [facility] Last Admin: 04/11/19 09:58 Dose: 40 mg Documented by: LUZ Potassium Chloride (Klor-Con M10) 10 meq PO DAILY [facility] Last Admin: 04/11/19 09:58 Dose: 10 meq Documented by: LUZ Propranolol HCl (Inderal) 10 mg PO TID [facility] Last Admin: 04/11/19 19:29 Dose: 10 mg Documented by: Admin: 04/11/19 09:57 Dose: 10 mg Documented by: Admin: 04/10/19 22:17 Dose: 10 mg Documented by: LARISA Ranitidine HCl (Zantac) 150 mg PO DAILY [facility] Ranitidine HCl (Zantac) 150 mg PO NOW ONE Stop: 04/11/19 19:38 Last Admin: 04/11/19 19:42 Dose: 150 mg Documented by: DAVID Risperidone (Risperdal) 2 mg PO BEDTIME [facility] Last Admin: 04/11/19 19:32 Dose: 2 mg Documented by: Admin: 04/10/19 22:17 Dose: 2 mg Documented by: LARISA Sucralfate (Carafate) 1 gm PO Q6HR [facility] Last Admin: 04/11/19 19:23 Dose: 1 gm Documented by: Admin: 04/11/19 09:55 Dose: 1 gm Documented by: Admin: 04/11/19 07:00 Dose: Not Given Documented by: Admin: 04/10/19 22:18 Dose: 1 gm Documented by: LARISA Topiramate (Topamax) 25 mg PO BID [facility] Last Admin: 04/11/19 19:33 Dose: 25 mg Documented by: Admin: 04/11/19 09:57 Dose: 25 mg Documented by: Admin: 04/10/19 22:16 Dose: 25 mg Documented by: LARISA Vitamin D (Vitamin D3) 1,000 unit PO DAILY [facility] Last Admin: 04/11/19 09:58 Dose: 1,000 unit Documented by: LUZ Vital Signs Vital signs: Vital Signs - 8 hr 04/11/19 13:04 04/11/19 13:50 04/11/19 14:56 Pulse Rate 78 74 72 Respiratory Rate 18 16 16 Blood Pressure [Left Arm] 104/71 117/64 104/74 Pulse Oximetry 97 95 95 04/11/19 16:00 Pulse Rate 74 Respiratory Rate 18 Blood Pressure [Left Arm] 107/54 L Pulse Oximetry 97 <Reny Sanchez, - Last Filed: 04/12/19 08:17> Orders Ordered: Discontinued Medications Acetaminophen (Tylenol) 975 mg PO TID PRN PRN Reason: pain / discomfort Stop: 04/13/19 21:50 Last Admin: 04/11/19 09:55 Dose: 975 mg Documented by: Admin: 04/10/19 22:13 Dose: 975 mg Documented by: LARISA Ascorbic Acid (Vitamin C) 500 mg PO DAILY [facility] Last Admin: 04/11/19 09:58 Dose: 500 mg Documented by: LUZ Duloxetine HCl (Cymbalta) 30 mg PO BID [facility] Last Admin: 04/11/19 19:26 Dose: 30 mg Documented by: Admin: 04/11/19 09:56 Dose: 30 mg Documented by: Admin: 04/10/19 22:16 Dose: 30 mg Documented by: LARISA Ferrous Sulfate (Ferrous Sulfate) 325 mg PO DAILY [facility] Last Admin: 04/11/19 09:58 Dose: 325 mg Documented by: LUZ Hydroxyzine Pamoate (Vistaril) 25 mg PO QID PRN PRN Reason: Anxiety Stop: 04/13/19 21:43 Last Admin: 04/11/19 19:39 Dose: 25 mg Documented by: Admin: 04/10/19 22:17 Dose: 25 mg Documented by: LARISA Levetiracetam (Keppra) 1,500 mg PO BID [facility] Last Admin: 04/11/19 19:40 Dose: 1,500 mg Documented by: Admin: 04/11/19 09:56 Dose: 1,500 mg Documented by: Admin: 04/10/19 22:14 Dose: 1,500 mg Documented by: LARISA Magnesium Oxide (Mag Ox) 400 mg PO BID [facility] Last Admin: 04/11/19 19:28 Dose: 400 mg Documented by: Admin: 04/11/19 09:57 Dose: 400 mg Documented by: Admin: 04/10/19 22:15 Dose: 400 mg Documented by: LARISA Pantoprazole Sodium (Protonix) 40 mg PO DAILY [facility] Last Admin: 04/11/19 09:58 Dose: 40 mg Documented by: LUZ Potassium Chloride (Klor-Con M10) 10 meq PO DAILY [facility] Last Admin: 04/11/19 09:58 Dose: 10 meq Documented by: LUZ Propranolol HCl (Inderal) 10 mg PO TID [facility] Last Admin: 04/11/19 19:29 Dose: 10 mg Documented by: Admin: 04/11/19 09:57 Dose: 10 mg Documented by: Admin: 04/10/19 22:17 Dose: 10 mg Documented by: LARISA Ranitidine HCl (Zantac) 150 mg PO DAILY [facility] Ranitidine HCl (Zantac) 150 mg PO NOW ONE Stop: 04/11/19 19:38 Last Admin: 04/11/19 19:42 Dose: 150 mg Documented by: DAVID Risperidone (Risperdal) 2 mg PO BEDTIME [facility] Last Admin: 04/11/19 19:32 Dose: 2 mg Documented by: Admin: 04/10/19 22:17 Dose: 2 mg Documented by: LARISA Sucralfate (Carafate) 1 gm PO Q6HR [facility] Last Admin: 04/11/19 19:23 Dose: 1 gm Documented by: Admin: 04/11/19 09:55 Dose: 1 gm Documented by: Admin: 04/11/19 07:00 Dose: Not Given Documented by: Admin: 04/10/19 22:18 Dose: 1 gm Documented by: LARISA Topiramate (Topamax) 25 mg PO BID [facility] Last Admin: 04/11/19 19:33 Dose: 25 mg Documented by: Admin: 04/11/19 09:57 Dose: 25 mg Documented by: Admin: 04/10/19 22:16 Dose: 25 mg Documented by: LARISA Vitamin D (Vitamin D3) 1,000 unit PO DAILY [facility] Last Admin: 04/11/19 09:58 Dose: 1,000 unit Documented by: LUZ Vital Signs Vital signs: Vital Signs - 8 hr 04/11/19 13:04 04/11/19 13:50 04/11/19 14:56 Pulse Rate 78 74 72 Respiratory Rate 18 16 16 Blood Pressure [Left Arm] 104/71 117/64 104/74 Pulse Oximetry 97 95 95 04/11/19 16:00 Pulse Rate 74 Respiratory Rate 18 Blood Pressure [Left Arm] 107/54 L Pulse Oximetry 97 MDM - Psych <Krupa Fong MD - Last Filed: 04/13/19 07:56> Medical Records Attestation: I reviewed the patient's medical records. Lab Data Attestation: I reviewed the patient's lab results. Result diagrams: 04/10/19 18:22 04/10/19 18:22 Labs: Lab Results 04/10/19 04/10/19 04/10/19 Range/Units 18:22 18:22 18:22 WBC 5.9 (4.5-11.0) X10^3/uL RBC 4.01 (4.0-5.2) X10^6/uL Hgb 12.6 (12.0-16.0) g/dL Hct 37.8 (36-46) % MCV 94.2 (80-100) fL MCH 31.4 (26-34) PG MCHC 33.4 (30-36) % RDW 13.6 (11.6-14.8) % Plt Count 251 (150-400) X10^3/uL Neut % (Auto) 42.8 L (50-75) % Lymph % (Auto) 47.8 H (25-40) % Leslie % (Auto) 5.3 (3-14) % Eos % (Auto) 3.0 (2-4) % Baso % (Auto) 1.1 (0-2) % Neut # (Auto) 2500 (7716-1514) /uL Lymph # (Auto) 2800 (4178-3294) /uL Leslie # (Auto) 300 (0-900) /uL Eos # (Auto) 200 (0-450) /uL Baso # (Auto) 100 (0-100) /uL Sodium 142 (137-145) mmol/L Potassium 3.5 (3.4-5.1) mmol/L Chloride 107 (98-107) mmol/L Carbon Dioxide 25 (22-32) mmol/L BUN 9 (7-17) mg/dL Creatinine 0.70 (0.52-1.04) mg/dL Estimated GFR > 60.0 (>60) mL/min BUN/Creatinine Ratio 12.9 (6-22) Glucose 87 (70-100) mg/dL Calcium 9.4 (8.4-10.2) mg/dL Total Bilirubin 0.8 (0.2-1.3) mg/dL AST 26 (14-36) IU/L ALT 26 (9-52) IU/L Alkaline Phosphatase 91 (38-126) U/L Total Creatine Kinase (30-135) U/L CK-MB (CK-2) CK-MB (CK-2) Rel Index Troponin I (0.01-0.034) ng/mL B-Natriuretic Peptide (<100) Total Protein 7.0 (6.3-8.2) g/dL Albumin 4.1 (3.5-5.0) g/dL Globulin 2.9 (1.7-4.1) g/dL Albumin/Globulin Ratio 1.4 (1.0-2.8) Lipase (23-300) U/L TSH 1.74 (0.47-4.68) uIU/mL Salicylates < 1.0 (<20) mg/dL Urine Opiates Screen (Negative) Ur Oxycodone Screen (Negative) Urine Methadone Screen (Negative) Acetaminophen < 10 L (10-30) ug/mL Ur Barbiturates Screen (Negative) U Tricyclic Antidepress (Negative) Ur Phencyclidine Scrn (Negative) Ur Amphetamines Screen (Negative) U Methamphetamines Scrn (Negative) Ur MDMA Scrn (Ecstasy) (Negative) U Benzodiazepines Scrn (Negative) Urine Cocaine Screen (Negative) U Marijuana (THC) Screen (Negative) Ethyl Alcohol < 10 ( - 10) mg/dL 04/10/19 04/10/19 04/10/19 Range/Units 18:22 18:22 18:22 WBC (4.5-11.0) X10^3/uL RBC (4.0-5.2) X10^6/uL Hgb (12.0-16.0) g/dL Hct (36-46) % MCV (80-100) fL MCH (26-34) PG MCHC (30-36) % RDW (11.6-14.8) % Plt Count (150-400) X10^3/uL Neut % (Auto) (50-75) % Lymph % (Auto) (25-40) % Leslie % (Auto) (3-14) % Eos % (Auto) (2-4) % Baso % (Auto) (0-2) % Neut # (Auto) (7699-5142) /uL Lymph # (Auto) (6624-9510) /uL Leslie # (Auto) (0-900) /uL Eos # (Auto) (0-450) /uL Baso # (Auto) (0-100) /uL Sodium (137-145) mmol/L Potassium (3.4-5.1) mmol/L Chloride (98-107) mmol/L Carbon Dioxide (22-32) mmol/L BUN (7-17) mg/dL Creatinine (0.52-1.04) mg/dL Estimated GFR (>60) mL/min BUN/Creatinine Ratio (6-22) Glucose (70-100) mg/dL Calcium (8.4-10.2) mg/dL Total Bilirubin (0.2-1.3) mg/dL AST (14-36) IU/L ALT (9-52) IU/L Alkaline Phosphatase (38-126) U/L Total Creatine Kinase 41 (30-135) U/L CK-MB (CK-2) TNP CK-MB (CK-2) Rel Index TNP Troponin I < 0.012 (0.01-0.034) ng/mL B-Natriuretic Peptide < 100 Cancelled (<100) Total Protein (6.3-8.2) g/dL Albumin (3.5-5.0) g/dL Globulin (1.7-4.1) g/dL Albumin/Globulin Ratio (1.0-2.8) Lipase 104 (23-300) U/L TSH (0.47-4.68) uIU/mL Salicylates (<20) mg/dL Urine Opiates Screen (Negative) Ur Oxycodone Screen (Negative) Urine Methadone Screen (Negative) Acetaminophen (10-30) ug/mL Ur Barbiturates Screen (Negative) U Tricyclic Antidepress (Negative) Ur Phencyclidine Scrn (Negative) Ur Amphetamines Screen (Negative) U Methamphetamines Scrn (Negative) Ur MDMA Scrn (Ecstasy) (Negative) U Benzodiazepines Scrn (Negative) Urine Cocaine Screen (Negative) U Marijuana (THC) Screen (Negative) Ethyl Alcohol ( - 10) mg/dL 04/10/19 Range/Units 19:10 WBC (4.5-11.0) X10^3/uL RBC (4.0-5.2) X10^6/uL Hgb (12.0-16.0) g/dL Hct (36-46) % MCV (80-100) fL MCH (26-34) PG MCHC (30-36) % RDW (11.6-14.8) % Plt Count (150-400) X10^3/uL Neut % (Auto) (50-75) % Lymph % (Auto) (25-40) % Leslie % (Auto) (3-14) % Eos % (Auto) (2-4) % Baso % (Auto) (0-2) % Neut # (Auto) (8945-9668) /uL Lymph # (Auto) (4354-4292) /uL Leslie # (Auto) (0-900) /uL Eos # (Auto) (0-450) /uL Baso # (Auto) (0-100) /uL Sodium (137-145) mmol/L Potassium (3.4-5.1) mmol/L Chloride (98-107) mmol/L Carbon Dioxide (22-32) mmol/L BUN (7-17) mg/dL Creatinine (0.52-1.04) mg/dL Estimated GFR (>60) mL/min BUN/Creatinine Ratio (6-22) Glucose (70-100) mg/dL Calcium (8.4-10.2) mg/dL Total Bilirubin (0.2-1.3) mg/dL AST (14-36) IU/L ALT (9-52) IU/L Alkaline Phosphatase (38-126) U/L Total Creatine Kinase (30-135) U/L CK-MB (CK-2) CK-MB (CK-2) Rel Index Troponin I (0.01-0.034) ng/mL B-Natriuretic Peptide (<100) Total Protein (6.3-8.2) g/dL Albumin (3.5-5.0) g/dL Globulin (1.7-4.1) g/dL Albumin/Globulin Ratio (1.0-2.8) Lipase (23-300) U/L TSH (0.47-4.68) uIU/mL Salicylates (<20) mg/dL Urine Opiates Screen Negative (Negative) Ur Oxycodone Screen Negative (Negative) Urine Methadone Screen Negative (Negative) Acetaminophen (10-30) ug/mL Ur Barbiturates Screen Negative (Negative) U Tricyclic Antidepress Negative (Negative) Ur Phencyclidine Scrn Negative (Negative) Ur Amphetamines Screen Negative (Negative) U Methamphetamines Scrn Negative (Negative) Ur MDMA Scrn (Ecstasy) Negative (Negative) U Benzodiazepines Scrn Positive H (Negative) Urine Cocaine Screen Negative (Negative) U Marijuana (THC) Screen Negative (Negative) Ethyl Alcohol ( - 10) mg/dL Point of Care Testing Test Results Negative Urine Dip Bedside Urine Glucose Negative Bedside Urine Bilirubin - Negative Bedside Urine Ketone - Negative Urine Specific [place] 1.015 Bedside Urine Occult Blood - Negative Bedside Urine pH 8.5 Bedside Urine Protein +/- 15 Bedside Urine Urobilinogen - Negative Bedside Urine Nitrite - Negative Bedside Urine Leukocytes - Negative Esterase <Aliza Lyn DO - Last Filed: 04/12/19 05:40> Lab Data Labs: Lab Results 04/10/19 04/10/19 04/10/19 Range/Units 18:22 18:22 18:22 WBC 5.9 (4.5-11.0) X10^3/uL RBC 4.01 (4.0-5.2) X10^6/uL Hgb 12.6 (12.0-16.0) g/dL Hct 37.8 (36-46) % MCV 94.2 (80-100) fL MCH 31.4 (26-34) PG MCHC 33.4 (30-36) % RDW 13.6 (11.6-14.8) % Plt Count 251 (150-400) X10^3/uL Neut % (Auto) 42.8 L (50-75) % Lymph % (Auto) 47.8 H (25-40) % Leslie % (Auto) 5.3 (3-14) % Eos % (Auto) 3.0 (2-4) % Baso % (Auto) 1.1 (0-2) % Neut # (Auto) 2500 (8678-1049) /uL Lymph # (Auto) 2800 (7414-7622) /uL Leslie # (Auto) 300 (0-900) /uL Eos # (Auto) 200 (0-450) /uL Baso # (Auto) 100 (0-100) /uL Sodium 142 (137-145) mmol/L Potassium 3.5 (3.4-5.1) mmol/L Chloride 107 (98-107) mmol/L Carbon Dioxide 25 (22-32) mmol/L BUN 9 (7-17) mg/dL Creatinine 0.70 (0.52-1.04) mg/dL Estimated GFR > 60.0 (>60) mL/min BUN/Creatinine Ratio 12.9 (6-22) Glucose 87 (70-100) mg/dL Calcium 9.4 (8.4-10.2) mg/dL Total Bilirubin 0.8 (0.2-1.3) mg/dL AST 26 (14-36) IU/L ALT 26 (9-52) IU/L Alkaline Phosphatase 91 (38-126) U/L Total Creatine Kinase (30-135) U/L CK-MB (CK-2) CK-MB (CK-2) Rel Index Troponin I (0.01-0.034) ng/mL B-Natriuretic Peptide (<100) Total Protein 7.0 (6.3-8.2) g/dL Albumin 4.1 (3.5-5.0) g/dL Globulin 2.9 (1.7-4.1) g/dL Albumin/Globulin Ratio 1.4 (1.0-2.8) Lipase (23-300) U/L TSH 1.74 (0.47-4.68) uIU/mL Salicylates < 1.0 (<20) mg/dL Urine Opiates Screen (Negative) Ur Oxycodone Screen (Negative) Urine Methadone Screen (Negative) Acetaminophen < 10 L (10-30) ug/mL Ur Barbiturates Screen (Negative) U Tricyclic Antidepress (Negative) Ur Phencyclidine Scrn (Negative) Ur Amphetamines Screen (Negative) U Methamphetamines Scrn (Negative) Ur MDMA Scrn (Ecstasy) (Negative) U Benzodiazepines Scrn (Negative) Urine Cocaine Screen (Negative) U Marijuana (THC) Screen (Negative) Ethyl Alcohol < 10 ( - 10) mg/dL 04/10/19 04/10/19 04/10/19 Range/Units 18:22 18:22 18:22 WBC (4.5-11.0) X10^3/uL RBC (4.0-5.2) X10^6/uL Hgb (12.0-16.0) g/dL Hct (36-46) % MCV (80-100) fL MCH (26-34) PG MCHC (30-36) % RDW (11.6-14.8) % Plt Count (150-400) X10^3/uL Neut % (Auto) (50-75) % Lymph % (Auto) (25-40) % Leslie % (Auto) (3-14) % Eos % (Auto) (2-4) % Baso % (Auto) (0-2) % Neut # (Auto) (7707-2601) /uL Lymph # (Auto) (9017-7154) /uL Leslie # (Auto) (0-900) /uL Eos # (Auto) (0-450) /uL Baso # (Auto) (0-100) /uL Sodium (137-145) mmol/L Potassium (3.4-5.1) mmol/L Chloride (98-107) mmol/L Carbon Dioxide (22-32) mmol/L BUN (7-17) mg/dL Creatinine (0.52-1.04) mg/dL Estimated GFR (>60) mL/min BUN/Creatinine Ratio (6-22) Glucose (70-100) mg/dL Calcium (8.4-10.2) mg/dL Total Bilirubin (0.2-1.3) mg/dL AST (14-36) IU/L ALT (9-52) IU/L Alkaline Phosphatase (38-126) U/L Total Creatine Kinase 41 (30-135) U/L CK-MB (CK-2) TNP CK-MB (CK-2) Rel Index TNP Troponin I < 0.012 (0.01-0.034) ng/mL B-Natriuretic Peptide < 100 Cancelled (<100) Total Protein (6.3-8.2) g/dL Albumin (3.5-5.0) g/dL Globulin (1.7-4.1) g/dL Albumin/Globulin Ratio (1.0-2.8) Lipase 104 (23-300) U/L TSH (0.47-4.68) uIU/mL Salicylates (<20) mg/dL Urine Opiates Screen (Negative) Ur Oxycodone Screen (Negative) Urine Methadone Screen (Negative) Acetaminophen (10-30) ug/mL Ur Barbiturates Screen (Negative) U Tricyclic Antidepress (Negative) Ur Phencyclidine Scrn (Negative) Ur Amphetamines Screen (Negative) U Methamphetamines Scrn (Negative) Ur MDMA Scrn (Ecstasy) (Negative) U Benzodiazepines Scrn (Negative) Urine Cocaine Screen (Negative) U Marijuana (THC) Screen (Negative) Ethyl Alcohol ( - 10) mg/dL 04/10/19 Range/Units 19:10 WBC (4.5-11.0) X10^3/uL RBC (4.0-5.2) X10^6/uL Hgb (12.0-16.0) g/dL Hct (36-46) % MCV (80-100) fL MCH (26-34) PG MCHC (30-36) % RDW (11.6-14.8) % Plt Count (150-400) X10^3/uL Neut % (Auto) (50-75) % Lymph % (Auto) (25-40) % Leslie % (Auto) (3-14) % Eos % (Auto) (2-4) % Baso % (Auto) (0-2) % Neut # (Auto) (4738-6462) /uL Lymph # (Auto) (9261-2213) /uL Leslie # (Auto) (0-900) /uL Eos # (Auto) (0-450) /uL Baso # (Auto) (0-100) /uL Sodium (137-145) mmol/L Potassium (3.4-5.1) mmol/L Chloride (98-107) mmol/L Carbon Dioxide (22-32) mmol/L BUN (7-17) mg/dL Creatinine (0.52-1.04) mg/dL Estimated GFR (>60) mL/min BUN/Creatinine Ratio (6-22) Glucose (70-100) mg/dL Calcium (8.4-10.2) mg/dL Total Bilirubin (0.2-1.3) mg/dL AST (14-36) IU/L ALT (9-52) IU/L Alkaline Phosphatase (38-126) U/L Total Creatine Kinase (30-135) U/L CK-MB (CK-2) CK-MB (CK-2) Rel Index Troponin I (0.01-0.034) ng/mL B-Natriuretic Peptide (<100) Total Protein (6.3-8.2) g/dL Albumin (3.5-5.0) g/dL Globulin (1.7-4.1) g/dL Albumin/Globulin Ratio (1.0-2.8) Lipase (23-300) U/L TSH (0.47-4.68) uIU/mL Salicylates (<20) mg/dL Urine Opiates Screen Negative (Negative) Ur Oxycodone Screen Negative (Negative) Urine Methadone Screen Negative (Negative) Acetaminophen (10-30) ug/mL Ur Barbiturates Screen Negative (Negative) U Tricyclic Antidepress Negative (Negative) Ur Phencyclidine Scrn Negative (Negative) Ur Amphetamines Screen Negative (Negative) U Methamphetamines Scrn Negative (Negative) Ur MDMA Scrn (Ecstasy) Negative (Negative) U Benzodiazepines Scrn Positive H (Negative) Urine Cocaine Screen Negative (Negative) U Marijuana (THC) Screen Negative (Negative) Ethyl Alcohol ( - 10) mg/dL Point of Care Testing Test Results Negative Urine Dip Bedside Urine Glucose Negative Bedside Urine Bilirubin - Negative Bedside Urine Ketone - Negative Urine Specific [place] 1.015 Bedside Urine Occult Blood - Negative Bedside Urine pH 8.5 Bedside Urine Protein +/- 15 Bedside Urine Urobilinogen - Negative Bedside Urine Nitrite - Negative Bedside Urine Leukocytes - Negative Esterase MDM Narrative Medical decision making narrative: Patient I discussed todays plan, she feels comfortable and feels safe to return home. She feels a little bit anxious about it but also feels excited to return home to her family, to her bed, and to her puppies. Patient states that she is safe at this time and does not feel that she wants to harm herself or others. She is able to contract for safety and states that she is willing to talk with her mother who she feels would help her to return here or call 911 if needed. She also has been given some resources by our transition social worker for possible opportunities or assisted living situations that might be helpful to her and her mother. Patient expressed some interest but also some anxiety about this as well. She does have an appointment tomorrow with her provider for recheck already in place. <Reny Sanchez, DO - Last Filed: 04/12/19 08:17> Lab Data Labs: Lab Results 04/10/19 04/10/19 04/10/19 Range/Units 18:22 18:22 18:22 WBC 5.9 (4.5-11.0) X10^3/uL RBC 4.01 (4.0-5.2) X10^6/uL Hgb 12.6 (12.0-16.0) g/dL Hct 37.8 (36-46) % MCV 94.2 (80-100) fL MCH 31.4 (26-34) PG MCHC 33.4 (30-36) % RDW 13.6 (11.6-14.8) % Plt Count 251 (150-400) X10^3/uL Neut % (Auto) 42.8 L (50-75) % Lymph % (Auto) 47.8 H (25-40) % Leslie % (Auto) 5.3 (3-14) % Eos % (Auto) 3.0 (2-4) % Baso % (Auto) 1.1 (0-2) % Neut # (Auto) 2500 (4301-6416) /uL Lymph # (Auto) 2800 (4791-4328) /uL Leslie # (Auto) 300 (0-900) /uL Eos # (Auto) 200 (0-450) /uL Baso # (Auto) 100 (0-100) /uL Sodium 142 (137-145) mmol/L Potassium 3.5 (3.4-5.1) mmol/L Chloride 107 (98-107) mmol/L Carbon Dioxide 25 (22-32) mmol/L BUN 9 (7-17) mg/dL Creatinine 0.70 (0.52-1.04) mg/dL Estimated GFR > 60.0 (>60) mL/min BUN/Creatinine Ratio 12.9 (6-22) Glucose 87 (70-100) mg/dL Calcium 9.4 (8.4-10.2) mg/dL Total Bilirubin 0.8 (0.2-1.3) mg/dL AST 26 (14-36) IU/L ALT 26 (9-52) IU/L Alkaline Phosphatase 91 (38-126) U/L Total Creatine Kinase (30-135) U/L CK-MB (CK-2) CK-MB (CK-2) Rel Index Troponin I (0.01-0.034) ng/mL B-Natriuretic Peptide (<100) Total Protein 7.0 (6.3-8.2) g/dL Albumin 4.1 (3.5-5.0) g/dL Globulin 2.9 (1.7-4.1) g/dL Albumin/Globulin Ratio 1.4 (1.0-2.8) Lipase (23-300) U/L TSH 1.74 (0.47-4.68) uIU/mL Salicylates < 1.0 (<20) mg/dL Urine Opiates Screen (Negative) Ur Oxycodone Screen (Negative) Urine Methadone Screen (Negative) Acetaminophen < 10 L (10-30) ug/mL Ur Barbiturates Screen (Negative) U Tricyclic Antidepress (Negative) Ur Phencyclidine Scrn (Negative) Ur Amphetamines Screen (Negative) U Methamphetamines Scrn (Negative) Ur MDMA Scrn (Ecstasy) (Negative) U Benzodiazepines Scrn (Negative) Urine Cocaine Screen (Negative) U Marijuana (THC) Screen (Negative) Ethyl Alcohol < 10 ( - 10) mg/dL 04/10/19 04/10/19 04/10/19 Range/Units 18:22 18:22 18:22 WBC (4.5-11.0) X10^3/uL RBC (4.0-5.2) X10^6/uL Hgb (12.0-16.0) g/dL Hct (36-46) % MCV (80-100) fL MCH (26-34) PG MCHC (30-36) % RDW (11.6-14.8) % Plt Count (150-400) X10^3/uL Neut % (Auto) (50-75) % Lymph % (Auto) (25-40) % Leslie % (Auto) (3-14) % Eos % (Auto) (2-4) % Baso % (Auto) (0-2) % Neut # (Auto) (8795-1385) /uL Lymph # (Auto) (6678-5959) /uL Leslie # (Auto) (0-900) /uL Eos # (Auto) (0-450) /uL Baso # (Auto) (0-100) /uL Sodium (137-145) mmol/L Potassium (3.4-5.1) mmol/L Chloride (98-107) mmol/L Carbon Dioxide (22-32) mmol/L BUN (7-17) mg/dL Creatinine (0.52-1.04) mg/dL Estimated GFR (>60) mL/min BUN/Creatinine Ratio (6-22) Glucose (70-100) mg/dL Calcium (8.4-10.2) mg/dL Total Bilirubin (0.2-1.3) mg/dL AST (14-36) IU/L ALT (9-52) IU/L Alkaline Phosphatase (38-126) U/L Total Creatine Kinase 41 (30-135) U/L CK-MB (CK-2) TNP CK-MB (CK-2) Rel Index TNP Troponin I < 0.012 (0.01-0.034) ng/mL B-Natriuretic Peptide < 100 Cancelled (<100) Total Protein (6.3-8.2) g/dL Albumin (3.5-5.0) g/dL Globulin (1.7-4.1) g/dL Albumin/Globulin Ratio (1.0-2.8) Lipase 104 (23-300) U/L TSH (0.47-4.68) uIU/mL Salicylates (<20) mg/dL Urine Opiates Screen (Negative) Ur Oxycodone Screen (Negative) Urine Methadone Screen (Negative) Acetaminophen (10-30) ug/mL Ur Barbiturates Screen (Negative) U Tricyclic Antidepress (Negative) Ur Phencyclidine Scrn (Negative) Ur Amphetamines Screen (Negative) U Methamphetamines Scrn (Negative) Ur MDMA Scrn (Ecstasy) (Negative) U Benzodiazepines Scrn (Negative) Urine Cocaine Screen (Negative) U Marijuana (THC) Screen (Negative) Ethyl Alcohol ( - 10) mg/dL 04/10/19 Range/Units 19:10 WBC (4.5-11.0) X10^3/uL RBC (4.0-5.2) X10^6/uL Hgb (12.0-16.0) g/dL Hct (36-46) % MCV (80-100) fL MCH (26-34) PG MCHC (30-36) % RDW (11.6-14.8) % Plt Count (150-400) X10^3/uL Neut % (Auto) (50-75) % Lymph % (Auto) (25-40) % Leslie % (Auto) (3-14) % Eos % (Auto) (2-4) % Baso % (Auto) (0-2) % Neut # (Auto) (3100-6260) /uL Lymph # (Auto) (7206-4457) /uL Leslie # (Auto) (0-900) /uL Eos # (Auto) (0-450) /uL Baso # (Auto) (0-100) /uL Sodium (137-145) mmol/L Potassium (3.4-5.1) mmol/L Chloride (98-107) mmol/L Carbon Dioxide (22-32) mmol/L BUN (7-17) mg/dL Creatinine (0.52-1.04) mg/dL Estimated GFR (>60) mL/min BUN/Creatinine Ratio (6-22) Glucose (70-100) mg/dL Calcium (8.4-10.2) mg/dL Total Bilirubin (0.2-1.3) mg/dL AST (14-36) IU/L ALT (9-52) IU/L Alkaline Phosphatase (38-126) U/L Total Creatine Kinase (30-135) U/L CK-MB (CK-2) CK-MB (CK-2) Rel Index Troponin I (0.01-0.034) ng/mL B-Natriuretic Peptide (<100) Total Protein (6.3-8.2) g/dL Albumin (3.5-5.0) g/dL Globulin (1.7-4.1) g/dL Albumin/Globulin Ratio (1.0-2.8) Lipase (23-300) U/L TSH (0.47-4.68) uIU/mL Salicylates (<20) mg/dL Urine Opiates Screen Negative (Negative) Ur Oxycodone Screen Negative (Negative) Urine Methadone Screen Negative (Negative) Acetaminophen (10-30) ug/mL Ur Barbiturates Screen Negative (Negative) U Tricyclic Antidepress Negative (Negative) Ur Phencyclidine Scrn Negative (Negative) Ur Amphetamines Screen Negative (Negative) U Methamphetamines Scrn Negative (Negative) Ur MDMA Scrn (Ecstasy) Negative (Negative) U Benzodiazepines Scrn Positive H (Negative) Urine Cocaine Screen Negative (Negative) U Marijuana (THC) Screen Negative (Negative) Ethyl Alcohol ( - 10) mg/dL Point of Care Testing Test Results Negative Urine Dip Bedside Urine Glucose Negative Bedside Urine Bilirubin - Negative Bedside Urine Ketone - Negative Urine Specific [place] 1.015 Bedside Urine Occult Blood - Negative Bedside Urine pH 8.5 Bedside Urine Protein +/- 15 Bedside Urine Urobilinogen - Negative Bedside Urine Nitrite - Negative Bedside Urine Leukocytes - Negative Esterase MDM Narrative Medical decision making narrative: The patient signed out to me by Dr. Fong. Social work has been very involved in her case throughout. They continue to be involved throughout the day trying multiple places. Unfortunately due to medical problems and bed availability there are no places that will accept her. She has been calm and cooperative throughout the day. No complaints. Patient signed out to Dr. lyn Discharge Plan Departure Patient Disposition: Home Clinical Impression: Depression Discharge Date/Time: 04/11/19 21:30 Instructions: Depression Activity Restrictions/Additional Instructions: Follow up with your provider tomorrow at your appointment. You may return at any time for re-evaluation, if you're going to harm yourself, have suicidal or want to kill yourself, if you of thoughts of harming others, if you will feel you are N/C or unsafe to others at any time, if you have any new c hest pain, shortness of breath, lightheadedness, passing out, persistent vomiting or black or bloody stools or other new or concerning symptoms. If you're feeling suicidal or having suicidal thoughts, contact the suicide hotline (this is also a resource hotline and you can set up follow up appointm ents with them as well) . Prescriptions: No Action coenzyme Q10 [Co Q-10] 100 mg capsule 100 mg PO QPM RF: 0 levonorgestrel [Mirena] 20 mcg/24 hr (5 years) intrauterine device 1 ea Intrauterine DIRECTED RF: 0 propranolol 10 mg tablet 10 mg PO TID RF: 0 topiramate [Topamax] 25 mg tablet 25 mg PO BID RF: 0 fluticasone propionate 50 mcg/actuation spray,suspension 1 spray NASAL DAILY Qty: 16 RF: 0 Caltrate + D3 Plus Minerals 300 mg-800 unit -25 mg-0.5 mg tablet 1 tab PO DAILY RF: 0 cholecalciferol (vitamin D3) 1,000 unit capsule 1,000 unit PO BID RF: 0 duloxetine 30 mg capsule,delayed release(DR/EC) 30 mg PO BID Qty: 60 RF: 3 hydroxyzine HCl 25 mg tablet 25 mg PO TID-QID PRN (Reason: anxiety) Qty: 90 RF: 1 Ultimate Lillian Probiotic 30 billion cell capsule,delayed release(DR/EC) 1 cap PO .Q12 RF: 0 risperidone 2 mg tablet 2 mg PO BEDTIME Qty: 30 RF: 0 sucralfate 100 mg/mL suspension 1 ml PO QID Qty: 400 RF: 0 ranitidine HCl 150 mg tablet 150 mg PO DAILY Qty: 30 RF: 0 pantoprazole 40 mg tablet,delayed release (DR/EC) 40 mg PO DAILY Qty: 30 RF: 0 potassium chloride 10 mEq tablet extended release 10 meq PO DAILY RF: 0 triamcinolone acetonide 0.1 % cream 1 applic Topical DIRECTED RF: 0 ferrous sulfate 325 mg (65 mg iron) Tablet 325 mg PO DAILY RF: 0 ascorbic acid (vitamin C) 500 mg Tablet,Chewable 500 mg PO DAILY RF: 0 magnesium oxide 500 mg Tablet 500 mg PO BID RF: 0 levetiracetam 1,000 mg tablet 1,500 mg PO BID RF: 0 Referrals: June Bonds PA-C [Primary Care Provider] -
[2019-04-10] MEDS: ACETAMINOPHEN 325 MG TABLET 975 MG PO (22:13)
[2019-04-10] MEDS: levETIRAcetam 250 MG TABLET 1500 MG PO (22:14)
[2019-04-10] MEDS: MAGNESIUM OXIDE 400 MG TABLET PO (22:15)
[2019-04-10] MEDS: TOPIRAMATE 25 MG TABLET PO (22:16)
[2019-04-10] MEDS: DULOXETINE 30 MG CAPSULE PO (22:16)
[2019-04-10] MEDS: risperiDONE 1 MG TABLET 2 MG PO (22:17)
[2019-04-10] MEDS: hydrOXYzine pamoate 25 MG CAPSULE PO (22:17)
[2019-04-10] MEDS: PROPRANOLOL 10 MG TABLET PO (22:17)
[2019-04-10] MEDS: SUCRALFATE 1 GM/10 ML ORAL SUSP PO (22:18)
--- NOTE | 2019-04-10 22:49 | PC.NURSE ---
Pt sitting up in bed NAD. crocheting. reports feeling safe and secure and has no plan to harm herself at this time. all night meds ordered and given. tolerated well. given call [facility]inn[facility]. in line of sight room from RN station and door open for pt comfort. ED PAPERHANGER CONTRACTOR Sandi advised multiple locations have beds available in the morning. pt agreeable to staying overnight in room until social work can evaluate in the morning.
[2019-04-10 22:54] VITALS: BP 102/68; PULSE 65; RESP 18; O2SAT 97
--- NOTE | 2019-04-10 23:15 | PC.NURSE ---
OOB to BR with steady gait with walker. tolerating well
--- NOTE | 2019-04-10 23:53 | PC.NURSE ---
pt resting eyes closed appears sleeping and comfortable. All records faxed to [facility] for placement. awaiting response.
[2019-04-11] VITALS (7 sets, daily range): BP systolic 102–117; BP diastolic 54–74; PULSE 72–78; RESP 12–18; O2SAT 94–100
--- NOTE | 2019-04-11 03:14 | PC.NURSE ---
Pt has been sleeping, NAD.
--- NOTE | 2019-04-11 05:52 | PC.NURSE ---
Pt has been sleeping comfortably all night.
--- NOTE | 2019-04-11 08:37 | PC.NURSE ---
Spoke with social work, they will send someone to talk with patient, unsure what time.
[2019-04-11] MEDS: ACETAMINOPHEN 325 MG TABLET 975 MG PO (09:55)
[2019-04-11] MEDS: SUCRALFATE 1 GM/10 ML ORAL SUSP PO ×2 (09:55→19:23)
[2019-04-11] MEDS: DULOXETINE 30 MG CAPSULE PO ×2 (09:56→19:26)
[2019-04-11] MEDS: levETIRAcetam 250 MG TABLET 1500 MG PO ×2 (09:56→19:40)
[2019-04-11] MEDS: PROPRANOLOL 10 MG TABLET PO ×2 (09:57→19:29)
[2019-04-11] MEDS: MAGNESIUM OXIDE 400 MG TABLET PO ×2 (09:57→19:28)
[2019-04-11] MEDS: TOPIRAMATE 25 MG TABLET PO ×2 (09:57→19:33)
[2019-04-11] MEDS: FERROUS SULFATE 325 MG TABLET PO (09:58)
[2019-04-11] MEDS: POTASSIUM CHLORIDE 10 MEQ TAB PO (09:58)
[2019-04-11] MEDS: ASCORBIC ACID 500 MG TABLET PO (09:58)
[2019-04-11] MEDS: CHOLECALCIFEROL (VITAMIN D3) 1,000 UNIT TABLET 1000 UNIT PO (09:58)
[2019-04-11] MEDS: PANTOPRAZOLE 40 MG TABLET PO (09:58)
--- NOTE | 2019-04-11 10:03 | PC.NURSE ---
Brought breakfast tray to patient and she is sitting up in bed eating
--- NOTE | 2019-04-11 10:44 | PC.NURSE ---
Made Dr. Fournier's office aware that pt is in the ED pending bed placement. Dr. Fournier does not work on Mondays but will make him aware upon his return.
--- NOTE | 2019-04-11 11:50 | PC.NURSE ---
Lunch Tray given to patient
--- NOTE | 2019-04-11 14:19 | CM.SWNOTE ---
ED TAKE UP OPERATOR Note late note Presenting Problem: Pt is a 33 year old woman who came to the ED due to increased SI. She stated I don't feel safe in my own brain. Pt was accompanied to the ED by her freindVirginia who remained in the room during this assessment. Precipitating Event: Pt stated that she had been feeling overwhelmed with taking care of her meds, but instead of allowing her mother to help her, allowed pride to get in the way and stopped all of her medications. She reported that she had not had any of her medications since Thursday. (04/11/19) Pt said that when she saw her mother using a knife, told her that she should keep all sharp objects away from her. She said she was not feeling safe. Pt also reported increased stressors to be her mother's health issues, of her father 10/2018, and her sister staying at their home more often. Pt denied any specific voices, but said that she felt as though Satan was causing her to fight with her mother. Pt reported that her tenriism ( Faith) is very important to ehr, but the restoration she enjoyed, moved and she no longer feels it is as familiar or comfortable. Current Behavioral Health Providers: Pt reported that she sees Sumi Hi on a weekly basis. She is a private practitioner in [place]. Pt had been in her weekly DBT group as well as individual therapy, but found it to be too much to handle due to the cognitive deficits experienced from the anoxic brain injury. Pt's behavioral health provider is Dr Fournier who she also sees on a regular basis. Past Psychiatric History: Pt has had one inpatient psychiatric Hospitalization. [facility]. She denies any use of alcohol or drugs. DX: Major depressive disorder, Generalized anxiety disorder with panic attacks Mental Status: Orientation: A/O x4. Affect: appropriate, sad, anxious Mood: depressed Thought content/speech: pt's speech is slow and at times delayed due to cognitive difficulties. Currently denied AH, but has had them in the past. speech is goal directed. Insight/judgment: fair/good. Behavior: cooperative SI/HI: Pt denied HI, but did not feel she could contract for safety. She did not have a specific plan, but was worried if she oculd remain safe. Plan: Bed search. If pt gives permission, TAKE UP OPERATOR to contact provider and therapist/
--- NOTE | 2019-04-11 16:08 | CM.SWNOTE ---
ED AIDS NURSE note AIDS NURSE met with pt this afternoon for a follow up assessment. She continues to report that she is not sure that she can remain safe if she returns home. When asked what helped her to remain out of the hospital from September to April she reported that she felt more stable following the hospitalization and was taking her medications as prescribed. Today she reported increased picking, and anxiety. Pt seemed frustrated with some agitation today. She would like to move out of her mother's home, but is unsure how she would manage. AIDS NURSE inquired if she has thought about an assisted living or family retirement. It appears that this discussio was begun with her psychiatrist, but pt is not sure what are the n=required next steps. AIDS NURSE provided pt with some information regarding aging and disability resources. Pt gave verbal permission for this hospice social worker to contact her therapist Sumi Hi [phone]. AIDS NURSE called and left a vm. Would like to discuss treatment planning with therapist and her thoughts regarding another psychiatric hospitalization. Plan: AIDS NURSE to continue with bed search.
--- NOTE | 2019-04-11 16:33 | CM.SWNOTE ---
ROGERS Note: Received call this AM from ED staff requesting assistance with placement for patient that came to ED yesterday with complaints of SI/major depression. Reviewed notes from psychiatrist/Dr. Fournier and spoke with ROGERS/Nay whom started case yesterday 04-10-19. Patient with previous psychiatric admits (see notes for details). Placed calls to:1)[facility] 2)[facility] 3)[facility] and 4)[facility]. [facility] declined patient. [facility] only took information over the phone and report that they will call CM team back. No word back from [facility]. Laura at [facility] requesting call back. Case handed back to ED/ROGERS Junior for placement options and or plan B. P: Pending. ROGERS Jane
--- NOTE | 2019-04-11 17:42 | CM.SWNOTE ---
Addendum entered by ROGERS Diego 04/11/19 17:57: Received a call back from [facility]. They are not contracted with [employer] so could not consider pt. [facility] only accepts [facility]EENA out of [facility]. Corrina contacted. [phone]. No availability currently, but if still need later tongt or tomorrow, call back. Original Note: ED CIVIL ENGINEERING DESIGN DRAFTSPERSON Note Bed Search continued CIVIL ENGINEERING DESIGN DRAFTSPERSON spoke with Deanna Bragg CIVIL ENGINEERING DESIGN DRAFTSPERSON/DCP who had continued this bed search begun yesterday. This afternoon CIVIL ENGINEERING DESIGN DRAFTSPERSON contacted 1. [facility]. They reported that they had not received faxed information and requested info be re-faxed. ph # [phone] fax # [phone]. 2. Spoke with intake at [facility]. They are reviewing info. [phone]. 3. [facility] was called again. Provided more information to intake who said they will be contacting me later this evening. They do not allow info to be faxed until after speaking with intake person. # [phone] 4. [facility]. [phone] Laura fax [phone]. Laura who speak to psychiatrist tomorrow AM who worked with this pt during her last admission. Updated information faxed to Laura this evening. Called [facility] to inquire if there were any additional hospitals with open beds.
[2019-04-11] MEDS: risperiDONE 1 MG TABLET 2 MG PO (19:32)
[2019-04-11] MEDS: hydrOXYzine pamoate 25 MG CAPSULE PO (19:39)
--- NOTE | 2019-04-11 20:13 | CM.SWNOTE ---
ED CONTROLS DESIGN ENGINEER Follow up CONTROLS DESIGN ENGINEER spoke with pt, her therapist Sumi Hi and with pt's permission also spoke with her mother. Pt is in agreement with discharge home today and meeting with her therapist tomorrow. She is able to contract for safety. Pt's therapist acknowledged that pt has never had a suicide attempt and although did not assess her, feels that generally she is low risk. We discussed ( therapist and CONTROLS DESIGN ENGINEER) the importance of pt moving out of the family home. Evidently pt had an appt with a residence for TBI and cancelled it. Pt's mother said pt was too high functioning. Pt's mother sounded very frustrated by not being included with goals and treatment planning. She is willing to help, but due to HIPPA, is not aware of the issues, nor applications that may be given to pt for housing.Therapist reported that pt might have benefitted from her DBT group, but quit, stating it was overwhelming. It seems as though pt's anxiety overwhelms her, but she is not able to work on the skills addressed in DBT. It seems as though pt's familiar way of interacting is to get anxious, feel distraught and become overwhelmed. She then states that she is suicidal and most likely does feel overwhelmed by stressors, sadness and feeling lonley. Since she has ot had a suicide attempt it seems that the suicidal statements, may be her way of lettng others know how scared, and hopeless she feels. CONTROLS DESIGN ENGINEER spoke with pt prior to d/c and inquired what would help her to stay on her medications. Both she and mother reported that when taking her medications appropriately she does better. Pt said that her anxiety overwhelms her and if she waits until her medication packet is out that she gets so anxious. She stated that if she does it a couple days before the end of the week, she can mange it more effectively. Pt used the word overwhelmed, numerous times while speaking with this CONTROLS DESIGN ENGINEER. Finding ways to decrease her anxiety and increase her coping skills may be more beneficial than inpatient treatment settings. Pt's mother and sister stated that pt is too much to handle. (Evidently pt gets very angry or else, calls family in hysterics and they feel ill equipped to handle her) Mother said that she should not be having to manage pt with her own health issues. She said she is scheduled for heart surgery and wonders how this stress impacts her health. They both had hoped that pt would be hospitalized. CONTROLS DESIGN ENGINEER explained, without sharing confidential information, that one must meet certain criteia for an inpt stay and pt no longer meets this criteria. Family clearly wants help with placement. CONTROLS DESIGN ENGINEER explained that the ED is for an acute crisis and we are happy to work with someone under these circumstances, but that housing is a longer term issue. CONTROLS DESIGN ENGINEER informed family that I owuld provide them with some informaiton that might be able to help in their search for more appropriate housing options. Pt's mother mentioned that pt has had AH and visual hallucinations. Pt denied any current hallucinations and no psychotic thought processes were observed. Plan: pt to be discharged home this evening. Pt's mother and sister will pick pt up. AEROSPACE ASSEMBLER called pt's therapist and left information that pt is being discharged and will be coming to her 1:30 pm appointment.
== END 2019-04-11 21:30 | disposition home or self-care (01) ==
PROVIDERS: Emergency Provider Emergency Medicine; Family Provider Physician Assistant Medical; PCP Physician Assistant Medical
DX: F32.9 Major depressive disorder, single episode, unspecified (principal)
CPT/HCPCS: 71045; 80053; 80305; 80320; 80329; 81003; 81025; 82550; 83690; 83880; 84443; 84484; 85025; 93005; 93010; 99285; G0480

== ENCOUNTER → 2019-06-14 15:35 | Outpatient (CLI) | payer OTHER, MEDICAID, SELFPAY ==
[2019-06-14 17:45] LABS: Alanine Aminotransferase 26 IU/L (<35); Albumin 4.5 g/dL (3.5-5.0); Albumin Globulin Ratio 1.8 (1.0-2.8); Alkaline Phosphatase 85 U/L (38-126); Aspartate Aminotransferase 27 IU/L (14-36); BUN Creatinine Ratio 16.3 (6-22); Bilirubin Total 0.7 mg/dL (0.2-1.3); Blood Urea Nitrogen 13 mg/dL (7-17); Calcium 9.6 mg/dL (8.4-10.2); Carbon Dioxide 31 mmol/L (22-32); Chloride 101 mmol/L (98-107); Estimated Glomerular Filt Rate > 60.0 mL/min (>60); Globulin 2.5 g/dL (1.7-4.1); Glucose 87 mg/dL (70-100); HEMOLYSIS < 15 (0-50); Potassium 4.4 mmol/L (3.4-5.1); Sodium 139 mmol/L (137-145)
== END ==
PROVIDERS: Family Provider Obstetrics & Gynecology; Visit Provider Hospitalist
DX: I45.81 Long QT syndrome (principal); T50.905A Adverse effect of unspecified drugs, medicaments and biological substances, initial encounter; R06.01 Orthopnea
CPT/HCPCS: 36415; 80053

== ENCOUNTER → 2019-07-01 14:44 | Outpatient (CLI) | payer OTHER, MEDICAID, SELFPAY ==
--- NOTE | 2019-07-01 | DI.ECHO.S_ITS ---
[facility]---------+ [facility] +---------+ : : [address] : [place] : : : : [id number] : : : : Phone: [phone]+ Echocardiogram Report + + :Name: MICHAEL DRAPER Study Date: 07/01/2019 Height: 73 in : :[facility] Exam Location: [facility] Weight: 286 lb : : Gender: Female BSA: 2.5 m2 : :: 1985 Age: 34 yrs BP: 118/80 mmHg: :Reason For Study: Orthopnea : :Ordering Physician: Patricia : :Doroteo Bowers Performed By: Stephy Funes : :Referring: PATRICIA MAZARIEGOS : + + Interpretation Summary The study quality was technically difficult. A contrast injection of Definity was performed to improve assessment of LV function. Despite using echo contrast, the LV function cannot be assessed due to poor acoustic windows. Visually, the EF at least does not appear to be significantly reduced. Further evaluation is not possible. The right ventricle is normal in size and function. Pulmonary artery pressures cannot be estimated because of the lack of a measurable TR jet velocity. No hemodynamically significant valvular abnormalities. A direct comparison cannot be made to the prior study given poor data quality. Procedure: A two-dimensional transthoracic echocardiogram with color flow and Doppler was performed. The study quality was technically difficult. Comparison is made with the echocardiogram of 04/05/2017. A contrast injection of Definity was performed to improve assessment of LV function. The patient was in normal sinus rhythm during the exam. Left Ventricle: The left ventricle is grossly normal size. Due to the poor quality of the echocardiogram, an assessment of left ventricular ejection fraction cannot be made. Regional wall motion abnormalities cannot be excluded due to limited visualization. Diastolic parameters suggest probable normal left ventricular diastolic function and normal filling pressures. Right Ventricle: The right ventricle is normal in size and function. Atria: Both atria are normal in size. Mitral Valve: The mitral valve is grossly normal. There is trace mitral regurgitation. Aortic Valve: The aortic valve opens well. The aortic valve is not well visualized. There is no aortic valve stenosis. No aortic regurgitation is present. Tricuspid Valve: The tricuspid valve is not well visualized. There is a trace or physiologic amount of tricuspid regurgitation. Pulmonary artery pressures cannot be estimated because of the lack of a measurable TR jet velocity. Pulmonic Valve: The pulmonic valve is not well visualized. Great Vessels: The IVC is dilated (diameter is greater than 2.1 cm) yet it collapses greater than 50% with a sniff. This suggests a right atrial pressure of 8 mm Hg. Pericardium/ Pleura There is no pericardial effusion. There is no pleural effusion. MMode/2D Measurements & Calculations LVOT diam: 2.3 cm LA A2 area: 17.7 cm2 Ao Arch Diam (Prox Trans): 2.4 cm LA A4 area: 17.6 cm2 LA length (vol): 4.9 cm LA vol: 54.0 ml LA vol index: 21.5 ml/m2 RA long axis: 4.5 cm TAPSE: 2.1 cm RA area: 15.7 cm2 RA vol: 46.3 ml RA : 18.5 ml/m2 IVC diam: 2.5 cm Doppler Measurements & Calculations Ao V2 max: 121.4 cm/sec LVOT Max Ivan: 95.8 cm/sec Ao V2 mean: 84.8 cm/sec LV V1 max P.7 mmHg Ao max P.9 mmHg LV V1 VTI: 19.5 cm Ao mean P.2 mmHg YAMILA(I,D): 3.2 cm2 Ao V2 VTI: 25.4 cm YAMILA(V,D): 3.3 cm2 sev ratio: 0.77 YAMILA indexed to BSA (cm^2/m^2): 1.3 MV E max ivan: 97.3 cm/sec PA V2 max: 63.7 cm/sec MV A max ivan: 63.0 cm/sec PA V2 mean: 42.9 cm/sec MV E/A: 1.5 PA mean P.81 mmHg Med Peak E' Ivan: 8.3 cm/sec PA pr(Accel): 26.6 mmHg E/E' med: 11.7 Lat Peak E' Ivan: 13.1 cm/sec E/E' lat: 7.4 E/e' average: 9.6 MV dec time: 0.15 sec SV(LVOT): 80.2 ml Electronically signed by: Patricia Mazariegos M.D. on Reading Physician:07/03/2019 09:02 PM
== END ==
PROVIDERS: Family Provider Obstetrics & Gynecology; PCP Obstetrics & Gynecology; Visit Provider Hospitalist
DX: R06.01 Orthopnea (principal)
CPT/HCPCS: C8929; Q9957

== ENCOUNTER 2019-08-02 01:12 | Emergency (ER) | payer OTHER, MEDICAID, SELFPAY ==
[2019-08-02] VITALS (7 sets, daily range): BP systolic 105–131; BP diastolic 63–86; PULSE 74–88; RESP 16–18; TEMP 36.2–36.8; O2SAT 18–98; BMI 42.0
--- NOTE | 2019-08-02 01:51 | ED.PSYCH ---
HPI - Psych <Brandon Galloway, DO - Last Filed: 08/02/19 06:58> General Chief Complaint: Psychiatric Symptoms Stated Complaint: suicidal ideation, depression, anxiety Time Seen by Provider: 08/02/19 01:13 Source: patient Mode of arrival: Ambulatory Limitations: no limitations History of Present Illness HPI Narrative: 34-year-old female nonsmoker with history of traumatic brain injury and psychiatric illness with prior suicidal ideation and hospitalization presents with a chief complaint of gradually worsening depression and suicidal ideation over the past 4-5 days. When initially asked she states she has no plan but upon further discussion she states she imagines her self cutting open her insides and pulling her innards out. Furthermore she states she has 2 people inside her head, 1 is evil and tells her bad things while the other is good. She denies any alcohol or street drugs. She lives at home with her mother and sister and states they don't understand her and have been unable to help her. Her primary care provider is in [place] and her psychiatrist is here at [facility]. She states she has been taking her medications as directed. She is not terribly clear regarding her triggers, but states it is largely due to family dynamics. MD complaint: suicidal ideation and feels depressed Onset (ago): day(s) Duration: constant and getting worse History of same: Yes Relieving factors: none Exacerbating factors: other Context: significant life stressor Associated psychiatric symptoms: depression and auditory hallucinations Associated symptoms: denies other symptoms If self harm: admits thoughts of self harm and has plan Related Data Home Medications Medication Instructions Recorded Confirmed coenzyme Q10 100 mg capsule 100 mg PO QPM 02/16/18 08/02/19 levonorgestrel 20 mcg/24 hours (5 1 ea INTRAUTERINE DIRECTED each 02/16/18 08/02/19 yrs) 52 mg intrauterine device topiramate 25 mg tablet 25 mg PO BID 03/16/18 08/02/19 ascorbic acid (vitamin C) 500 mg PO DAILY 09/21/18 08/02/19 ferrous sulfate 325 mg PO DAILY 09/21/18 08/02/19 levetiracetam 1,500 mg PO BID 09/21/18 08/02/19 magnesium oxide 500 mg PO BID 09/21/18 08/02/19 triamcinolone acetonide 1 applic TOPICAL DIRECTED 09/21/18 08/02/19 fluticasone propionate 50 1 spray NASAL DAILY #16 gram 10/22/18 08/02/19 mcg/actuation nasal spray,suspension cholecalciferol (vitamin D3) 1,000 1,000 unit PO BID cap 11/12/18 08/02/19 unit capsule pantoprazole 40 mg tablet,delayed 40 mg PO DAILY #30 tab 12/03/18 08/02/19 release ranitidine HCl 150 mg tablet 150 mg PO DAILY #30 tab 12/03/18 08/02/19 sucralfate 100 mg/mL oral 1 ml PO QID #400 ml 12/03/18 08/02/19 suspension Lactobacillus-Bifidobacterium 30 1 cap PO .Q12 cap 03/16/19 08/02/19 billion cell capsule,delayed release hydrochlorothiazide 25 mg tablet 25 mg PO DAILY 06/09/19 08/02/19 lorazepam 0.5 mg tablet See Rx Instructions .ROUTE 06/09/19 08/02/19 .COMPLEX tab propranolol 10 mg tablet 10 mg PO TID tab 06/09/19 08/02/19 albuterol sulfate [ProAir HFA] 1 - 2 puff INHALATION Q4H PRN 08/02/19 08/02/19 calcium citrate-vitamin D3 1 tab PO BID 08/02/19 08/02/19 cephalexin 500 mg PO [id number] 08/02/19 08/02/19 duloxetine 30 mg PO BID 08/02/19 08/02/19 famotidine 20 mg PO DAILY 08/02/19 08/02/19 furosemide 40 mg PO DAILY 08/02/19 08/02/19 potassium chloride 20 meq PO DAILY 08/02/19 08/02/19 Previous Rx's Medication Instructions Recorded hydroxyzine HCl 25 mg tablet 25 mg PO TID-QID PRN #90 tab 02/10/19 risperidone 1 mg tablet 0.5 mg PO BEDTIME #30 tab 07/25/19 Allergies Allergy/AdvReac Type Severity Reaction Status Date / Time lactose Allergy Verified 08/03/19 00:20 bupropion [From Wellbutrin] AdvReac Intermediate hallucinati Verified 08/03/19 00:20 ons lithium AdvReac Intermediate psychosis, Verified 08/03/19 00:20 nausea pseudoephedrine AdvReac Intermediate heart Verified 08/03/19 00:20 [PSEUDOEPHEDRINE] palpatations Sulfa (Sulfonamide AdvReac Mild HALLUCINATI Verified 08/03/19 00:20 Antibiotics) ONS buspirone AdvReac leg Verified 08/03/19 00:20 tremors, increased anxiety Review of Systems <Brandon Galloway DO - Last Filed: 08/02/19 06:58> Constitutional Constitutional: Denies chills, Denies fatigue, Denies fever(s), Denies frequent falls, Denies lethargy and Denies weakness Eyes Eyes: Denies change in vision, Denies eye discharge, Denies irritation and Denies loss of vision ENT Ears, Nose, Mouth, and Throat: Denies change in voice, Denies dizziness, Denies neck pain, Denies sore throat and Denies throat swelling Cardiovascular Cardiovascular: Denies chest pain, Denies irregular heart rhythm, Denies lightheadedness, Denies palpitations, Denies dyspnea, Denies dyspnea on exertion and Denies orthopnea Respiratory Respiratory: Denies cough, Denies dyspnea, Denies dyspnea on exertion and Denies wheezing Gastrointestinal Gastrointestinal: Denies abdominal pain, Denies change in bowel habits, Denies diarrhea, Denies nausea and Denies vomiting Genitourinary Genitourinary: Denies hematuria, Denies flank pain, Denies urinary incontinence and Denies urinary urgency Musculoskeletal Musculoskeletal: Denies back pain, Denies muscle weakness, Denies neck pain, Denies numbness and Denies tingling Integumentary/Breasts Skin/Breast: Denies pruritus, Denies erythema, Denies rash and Denies wounds Neurologic Neurologic: Denies behavioral changes, Denies confusion, Denies dizziness, Denies frequent falls, Denies loss of vision, Denies numbness, Denies tingling and Denies weakness Psychiatric Psychiatric: Denies anxiety, Denies behavioral changes, Denies confusion, Denies depression, Reports hallucinations, Denies homicidal ideation and Reports suicidal ideation Endocrine Endocrine: Denies fatigue, Denies flushing and Denies palpitations Hematologic/Lymphatic Hematologic/Lymphatic: Denies easy bruising Allergic/Immunologic Allergic/Immunologic: Denies urticaria, Denies throat swelling and Denies wheezing Patient History <Brandon Galloway DO - Last Filed: 08/02/19 06:58> Medical History Anxiety (Acute) Depression (Acute) Surgical History No pertinent past surgical history (Acute) Social History Smoking Status: Never smoker Smoking Status: Never smoker alcohol intake frequency: 0-2 drinks per day Substance Use Type: does not use Exam <Brandon Galloway DO - Last Filed: 08/02/19 06:58> Narrative Exam Narrative: GENERAL: [34] year old patient appears stated age. Morbidly obese, flat affect HEAD: Atraumatic. Normocephalic. EYES: Pupils equal round and reactive. Extraocular motions intact. No scleral icterus. No injection or drainage. ENT: Nose without bleeding, purulent drainage. Throat without erythema, tonsillar hypertrophy or exudate. Airway patent. NECK: Trachea midline. Non tender CARDIOVASCULAR: Regular rate and rhythm without murmurs, gallops, or rubs. RESPIRATORY: Clear to auscultation. Breath sounds equal bilaterally. No wheezes, rales, or rhonchi. GASTROINTESTINAL: Abdomen soft, non-tender, nondistended. EXTREMITIES: No edema or joint tenderness. BACK: Nontender without deformity or crepitance. No flank tenderness. NEURO: AOx3. SKIN: No rash or erythema of visible areas Initial Vital Signs Initial Vital Signs: Vital Signs Temperature 97.1 F L 08/02/19 01:35 Pulse Rate 75 08/02/19 01:35 Respiratory Rate 18 08/02/19 01:35 Blood Pressure 131/86 08/02/19 01:35 Pulse Oximetry 97 08/02/19 01:35 <Krupa Fong MD - Last Filed: 08/02/19 19:55> Initial Vital Signs Initial Vital Signs: Vital Signs Temperature 97.1 F L 08/02/19 01:35 Pulse Rate 75 08/02/19 01:35 Respiratory Rate 18 08/02/19 01:35 Blood Pressure 131/86 08/02/19 01:35 Pulse Oximetry 97 08/02/19 01:35 <Reny Sanchez DO - Last Filed: 08/03/19 06:34> Initial Vital Signs Initial Vital Signs: Vital Signs Temperature 97.1 F L 08/02/19 01:35 Pulse Rate 75 08/02/19 01:35 Respiratory Rate 18 08/02/19 01:35 Blood Pressure 131/86 08/02/19 01:35 Pulse Oximetry 97 08/02/19 01:35 <Aliza Anderson, DO - Last Filed: 08/04/19 16:24> Initial Vital Signs Initial Vital Signs: Vital Signs Temperature 97.1 F L 08/02/19 01:35 Pulse Rate 75 08/02/19 01:35 Respiratory Rate 18 08/02/19 01:35 Blood Pressure 131/86 08/02/19 01:35 Pulse Oximetry 97 08/02/19 01:35 <Shubham Barahona, DO - Last Filed: 08/04/19 06:48> Initial Vital Signs Initial Vital Signs: Vital Signs Temperature 97.1 F L 08/02/19 01:35 Pulse Rate 75 08/02/19 01:35 Respiratory Rate 18 08/02/19 01:35 Blood Pressure 131/86 08/02/19 01:35 Pulse Oximetry 97 08/02/19 01:35 Course <Brandon Galloway, DO - Last Filed: 08/02/19 06:58> Orders Ordered: Discontinued Medications Ascorbic Acid (Vitamin C) 500 mg PO DAILY [facility] Last Admin: 08/04/19 09:15 Dose: 500 mg Documented by: Admin: 08/03/19 10:35 Dose: 500 mg Documented by: MARCUS Bacitracin (Bacitracin) 1 applic TOP NOW ONE Stop: 08/03/19 16:23 Last Admin: 08/03/19 23:31 Dose: 1 applic Documented by: MARIA A Calcium Citrate (Citracal) 200 mg PO DAILY [facility] Last Admin: 08/04/19 09:16 Dose: 200 mg Documented by: Admin: 08/03/19 10:32 Dose: 200 mg Documented by: MARCUS Duloxetine HCl (Cymbalta) 30 mg PO NOW ONE Stop: 08/03/19 00:22 Last Admin: 08/03/19 00:51 Dose: 30 mg Documented by: RACHELE Duloxetine HCl (Cymbalta) 30 mg PO BID [facility] Last Admin: 08/04/19 09:38 Dose: 30 mg Documented by: Admin: 08/03/19 23:25 Dose: 30 mg Documented by: MARIA A Admin: 08/03/19 10:33 Dose: 30 mg Documented by: MARCUS Ferrous Sulfate (Ferrous Sulfate) 325 mg PO DAILY [facility] Last Admin: 08/04/19 09:16 Dose: 325 mg Documented by: Admin: 08/03/19 10:35 Dose: 325 mg Documented by: MARCUS Hydroxyzine Pamoate (Vistaril) 25 mg PO QID PRN PRN Reason: Anxiety Stop: 08/06/19 00:24 Last Admin: 08/03/19 00:51 Dose: 25 mg Documented by: RACHELE Ibuprofen (Advil) 400 mg PO NOW ONE Stop: 08/02/19 15:38 Last Admin: 08/02/19 15:43 Dose: 400 mg Documented by: ANDRESSA Ibuprofen (Advil) 800 mg PO NOW ONE Stop: 08/03/19 19:47 Last Admin: 08/03/19 19:51 Dose: 800 mg Documented by: MARIA A Levetiracetam (Keppra) 1,500 mg PO NOW ONE Stop: 08/03/19 00:22 Last Admin: 08/03/19 00:51 Dose: 1,500 mg Documented by: RACHELE Levetiracetam (Keppra) 1,500 mg PO BID [facility] Last Admin: 08/04/19 09:16 Dose: 1,500 mg Documented by: Admin: 08/03/19 23:26 Dose: 1,500 mg Documented by: MARIA A Admin: 08/03/19 10:32 Dose: 1,500 mg Documented by: MARCUS Lorazepam (Ativan) 0.5 mg PO NOW ONE Stop: 08/02/19 05:18 Last Admin: 08/02/19 08:16 Dose: 0.5 mg Documented by: MARCUS Lorazepam (Ativan) 0.5 mg PO NOW ONE Stop: 08/02/19 15:38 Last Admin: 08/02/19 15:43 Dose: 0.5 mg Documented by: ANDRESSA Lorazepam (Ativan) 0.5 mg PO NOW ONE Stop: 08/03/19 00:22 Last Admin: 08/03/19 00:52 Dose: 0.5 mg Documented by: RACHELE Lorazepam (Ativan) 0.25 mg PO NOW ONE Stop: 08/03/19 10:50 Last Admin: 08/03/19 12:13 Dose: 0.25 mg Documented by: MARCUS Lorazepam (Ativan) 0.25 mg PO NOW ONE Stop: 08/04/19 09:51 Last Admin: 08/04/19 10:14 Dose: 0.25 mg Documented by: MITCHEL Magnesium Oxide (Mag Ox) 500 mg PO BID [facility] Magnesium Oxide (Mag Ox) 400 mg PO NOW ONE Stop: 08/04/19 09:53 Last Admin: 08/04/19 10:15 Dose: 400 mg Documented by: MITCHEL Pantoprazole Sodium (Protonix) 40 mg PO DAILY [facility] Last Admin: 08/04/19 09:17 Dose: 40 mg Documented by: Admin: 08/03/19 10:36 Dose: 40 mg Documented by: MARCUS Propranolol HCl (Inderal) 10 mg PO NOW ONE Stop: 08/03/19 00:22 Last Admin: 08/03/19 01:41 Dose: 10 mg Documented by: RACHELE Propranolol HCl (Inderal) 10 mg PO TID [facility] Last Admin: 08/04/19 09:18 Dose: 10 mg Documented by: Admin: 08/03/19 23:25 Dose: 10 mg Documented by: MARIA A Admin: 08/03/19 19:42 Dose: Not Given Documented by: MARIA A Admin: 08/03/19 10:34 Dose: 10 mg Documented by: MARCUS Ranitidine HCl (Zantac) 150 mg PO DAILY [facility] Last Admin: 08/04/19 09:18 Dose: 150 mg Documented by: Admin: 08/03/19 10:36 Dose: 150 mg Documented by: MARCUS Risperidone (Risperdal) 0.5 mg PO DAILY [facility] Last Admin: 08/04/19 09:50 Dose: Not Given Documented by: Admin: 08/03/19 10:33 Dose: 0.5 mg Documented by: MARCUS Risperidone (Risperidone Odt) 0.5 mg SL NOW ONE Stop: 08/03/19 00:59 Last Admin: 08/03/19 01:40 Dose: 0.5 mg Documented by: KSCHERE Sucralfate (Carafate) 1 gm PO Q6HR [facility] Last Admin: 08/04/19 12:08 Dose: Not Given Documented by: Admin: 08/04/19 09:15 Dose: 1 gm Documented by: Admin: 08/04/19 00:10 Dose: Not Given Documented by: MARIA A Admin: 08/03/19 23:45 Dose: 1 gm Documented by: MARIA A Admin: 08/03/19 23:45 Dose: Not Given Documented by: MARIA A Admin: 08/03/19 10:33 Dose: 1 gm Documented by: MARCUS Topiramate (Topamax) 25 mg PO NOW ONE Stop: 08/03/19 00:22 Last Admin: 08/03/19 01:40 Dose: 25 mg Documented by: RACHELE Topiramate (Topamax) 25 mg PO BID [facility] Admin: 08/04/19 09:18 Dose: 25 mg Documented by: Admin: 08/03/19 23:24 Dose: 25 mg Documented by: MARIA A Admin: 08/03/19 10:35 Dose: 25 mg Documented by: MARCUS Vitamin D (Vitamin D3) 1,000 unit PO DAILY [facility] Admin: 08/04/19 09:16 Dose: 1,000 unit Documented by: Admin: 08/03/19 10:35 Dose: 1,000 unit Documented by: MARCUS Vital Signs Vital signs: Vital Signs - 8 hr 08/04/19 09:02 08/04/19 14:54 Temperature 97.2 F L 97.0 F L Pulse Rate 80 77 Respiratory Rate 14 14 Blood Pressure [Right Arm] 107/67 114/75 Pulse Oximetry 95 98 <Krupa Fong MD - Last Filed: 08/02/19 19:55> Course Course Narrative: The patient was signed out to myself by Dr. Galloway at change of shift, pending social Work evaluation and disposition. The patient was allowed to take her home personal medications while in the emergency department under nursing supervision, and was also given a dose of Ativan here. The patient remained calm and cooperative while in the emergency department. At the time of the end of my shift, the patient was still being evaluated for potential acceptance at [facility], after [facility] declined to accept the patient. The patient was signed out to Dr. Sanchez pending word of [facility]'s decision from social work. Orders Ordered: Discontinued Medications Ascorbic Acid (Vitamin C) 500 mg PO DAILY [facility] Last Admin: 08/04/19 09:15 Dose: 500 mg Documented by: Admin: 08/03/19 10:35 Dose: 500 mg Documented by: MARCUS Bacitracin (Bacitracin) 1 applic TOP NOW ONE Stop: 08/03/19 16:23 Last Admin: 08/03/19 23:31 Dose: 1 applic Documented by: MARIA A Calcium Citrate (Citracal) 200 mg PO DAILY [facility] Last Admin: 08/04/19 09:16 Dose: 200 mg Documented by: Admin: 08/03/19 10:32 Dose: 200 mg Documented by: MARCUS Duloxetine HCl (Cymbalta) 30 mg PO NOW ONE Stop: 08/03/19 00:22 Last Admin: 08/03/19 00:51 Dose: 30 mg Documented by: RACHELE Duloxetine HCl (Cymbalta) 30 mg PO BID [facility] Last Admin: 08/04/19 09:38 Dose: 30 mg Documented by: Admin: 08/03/19 23:25 Dose: 30 mg Documented by: MARIA A Admin: 08/03/19 10:33 Dose: 30 mg Documented by: MARCUS Ferrous Sulfate (Ferrous Sulfate) 325 mg PO DAILY [facility] Last Admin: 08/04/19 09:16 Dose: 325 mg Documented by: Admin: 08/03/19 10:35 Dose: 325 mg Documented by: MARCUS Hydroxyzine Pamoate (Vistaril) 25 mg PO QID PRN PRN Reason: Anxiety Stop: 08/06/19 00:24 Last Admin: 08/03/19 00:51 Dose: 25 mg Documented by: RACHELE Ibuprofen (Advil) 400 mg PO NOW ONE Stop: 08/02/19 15:38 Last Admin: 08/02/19 15:43 Dose: 400 mg Documented by: ANDRESSA Ibuprofen (Advil) 800 mg PO NOW ONE Stop: 08/03/19 19:47 Last Admin: 08/03/19 19:51 Dose: 800 mg Documented by: MARIA A Levetiracetam (Keppra) 1,500 mg PO NOW ONE Stop: 08/03/19 00:22 Last Admin: 08/03/19 00:51 Dose: 1,500 mg Documented by: RACHELE Levetiracetam (Keppra) 1,500 mg PO BID [facility] Last Admin: 08/04/19 09:16 Dose: 1,500 mg Documented by: Admin: 08/03/19 23:26 Dose: 1,500 mg Documented by: MARIA A Admin: 08/03/19 10:32 Dose: 1,500 mg Documented by: MARCUS Lorazepam (Ativan) 0.5 mg PO NOW ONE Stop: 08/02/19 05:18 Last Admin: 08/02/19 08:16 Dose: 0.5 mg Documented by: MARCUS Lorazepam (Ativan) 0.5 mg PO NOW ONE Stop: 08/02/19 15:38 Last Admin: 08/02/19 15:43 Dose: 0.5 mg Documented by: ANDRESSA Lorazepam (Ativan) 0.5 mg PO NOW ONE Stop: 08/03/19 00:22 Last Admin: 08/03/19 00:52 Dose: 0.5 mg Documented by: RACHELE Lorazepam (Ativan) 0.25 mg PO NOW ONE Stop: 08/03/19 10:50 Last Admin: 08/03/19 12:13 Dose: 0.25 mg Documented by: MARCUS Lorazepam (Ativan) 0.25 mg PO NOW ONE Stop: 08/04/19 09:51 Last Admin: 08/04/19 10:14 Dose: 0.25 mg Documented by: MITCHEL Magnesium Oxide (Mag Ox) 500 mg PO BID [facility] Magnesium Oxide (Mag Ox) 400 mg PO NOW ONE Stop: 08/04/19 09:53 Last Admin: 08/04/19 10:15 Dose: 400 mg Documented by: MITCHEL Pantoprazole Sodium (Protonix) 40 mg PO DAILY [facility] Last Admin: 08/04/19 09:17 Dose: 40 mg Documented by: Admin: 08/03/19 10:36 Dose: 40 mg Documented by: MARCUS Propranolol HCl (Inderal) 10 mg PO NOW ONE Stop: 08/03/19 00:22 Last Admin: 08/03/19 01:41 Dose: 10 mg Documented by: RACHELE Propranolol HCl (Inderal) 10 mg PO TID [facility] Last Admin: 08/04/19 09:18 Dose: 10 mg Documented by: Admin: 08/03/19 23:25 Dose: 10 mg Documented by: MARIA A Admin: 08/03/19 19:42 Dose: Not Given Documented by: MARIA A Admin: 08/03/19 10:34 Dose: 10 mg Documented by: MARCUS Ranitidine HCl (Zantac) 150 mg PO DAILY [facility] Last Admin: 08/04/19 09:18 Dose: 150 mg Documented by: Admin: 08/03/19 10:36 Dose: 150 mg Documented by: MARCUS Risperidone (Risperdal) 0.5 mg PO DAILY [facility] Last Admin: 08/04/19 09:50 Dose: Not Given Documented by: Admin: 08/03/19 10:33 Dose: 0.5 mg Documented by: MARCUS Risperidone (Risperidone Odt) 0.5 mg SL NOW ONE Stop: 08/03/19 00:59 Last Admin: 08/03/19 01:40 Dose: 0.5 mg Documented by: RACHELE Sucralfate (Carafate) 1 gm PO Q6HR [facility] Last Admin: 08/04/19 12:08 Dose: Not Given Documented by: Admin: 08/04/19 09:15 Dose: 1 gm Documented by: Admin: 08/04/19 00:10 Dose: Not Given Documented by: MARIA A Admin: 08/03/19 23:45 Dose: 1 gm Documented by: MARIA A Admin: 08/03/19 23:45 Dose: Not Given Documented by: MARIA A Admin: 08/03/19 10:33 Dose: 1 gm Documented by: MARCUS Topiramate (Topamax) 25 mg PO NOW ONE Stop: 08/03/19 00:22 Last Admin: 08/03/19 01:40 Dose: 25 mg Documented by: RACHELE Topiramate (Topamax) 25 mg PO BID [facility] Last Admin: 08/04/19 09:18 Dose: 25 mg Documented by: Admin: 08/03/19 23:24 Dose: 25 mg Documented by: MARIA A Admin: 08/03/19 10:35 Dose: 25 mg Documented by: MARCUS Vitamin D (Vitamin D3) 1,000 unit PO DAILY [facility] Last Admin: 08/04/19 09:16 Dose: 1,000 unit Documented by: Admin: 08/03/19 10:35 Dose: 1,000 unit Documented by: MARCUS Vital Signs Vital signs: Vital Signs - 8 hr 08/04/19 09:02 08/04/19 14:54 Temperature 97.2 F L 97.0 F L Pulse Rate 80 77 Respiratory Rate 14 14 Blood Pressure [Right Arm] 107/67 114/75 Pulse Oximetry 95 98 <Reny Sanchez DO - Last Filed: 08/03/19 06:34> Orders Ordered: Discontinued Medications Ascorbic Acid (Vitamin C) 500 mg PO DAILY [facility] Last Admin: 08/04/19 09:15 Dose: 500 mg Documented by: Admin: 08/03/19 10:35 Dose: 500 mg Documented by: MARCUS Bacitracin (Bacitracin) 1 applic TOP NOW ONE Stop: 08/03/19 16:23 Last Admin: 08/03/19 23:31 Dose: 1 applic Documented by: MARIA A Calcium Citrate (Citracal) 200 mg PO DAILY [facility] Last Admin: 08/04/19 09:16 Dose: 200 mg Documented by: Admin: 08/03/19 10:32 Dose: 200 mg Documented by: MARCUS Duloxetine HCl (Cymbalta) 30 mg PO NOW ONE Stop: 08/03/19 00:22 Last Admin: 08/03/19 00:51 Dose: 30 mg Documented by: RACHELE Duloxetine HCl (Cymbalta) 30 mg PO BID [facility] Last Admin: 08/04/19 09:38 Dose: 30 mg Documented by: Admin: 08/03/19 23:25 Dose: 30 mg Documented by: MARIA A Admin: 08/03/19 10:33 Dose: 30 mg Documented by: MARCUS Ferrous Sulfate (Ferrous Sulfate) 325 mg PO DAILY [facility] Last Admin: 08/04/19 09:16 Dose: 325 mg Documented by: Admin: 08/03/19 10:35 Dose: 325 mg Documented by: MARCUS Hydroxyzine Pamoate (Vistaril) 25 mg PO QID PRN PRN Reason: Anxiety Stop: 08/06/19 00:24 Last Admin: 08/03/19 00:51 Dose: 25 mg Documented by: RACHELE Ibuprofen (Advil) 400 mg PO NOW ONE Stop: 08/02/19 15:38 Last Admin: 08/02/19 15:43 Dose: 400 mg Documented by: ANDRESSA Ibuprofen (Advil) 800 mg PO NOW ONE Stop: 08/03/19 19:47 Last Admin: 08/03/19 19:51 Dose: 800 mg Documented by: MARIA A Levetiracetam (Keppra) 1,500 mg PO NOW ONE Stop: 08/03/19 00:22 Last Admin: 08/03/19 00:51 Dose: 1,500 mg Documented by: RACHELE Levetiracetam (Keppra) 1,500 mg PO BID [facility] Last Admin: 08/04/19 09:16 Dose: 1,500 mg Documented by: Admin: 08/03/19 23:26 Dose: 1,500 mg Documented by: MARIA A Admin: 08/03/19 10:32 Dose: 1,500 mg Documented by: MARCUS Lorazepam (Ativan) 0.5 mg PO NOW ONE Stop: 08/02/19 05:18 Last Admin: 08/02/19 08:16 Dose: 0.5 mg Documented by: MARCUS Lorazepam (Ativan) 0.5 mg PO NOW ONE Stop: 08/02/19 15:38 Last Admin: 08/02/19 15:43 Dose: 0.5 mg Documented by: ANDRESSA Lorazepam (Ativan) 0.5 mg PO NOW ONE Stop: 08/03/19 00:22 Last Admin: 08/03/19 00:52 Dose: 0.5 mg Documented by: RACHELE Lorazepam (Ativan) 0.25 mg PO NOW ONE Stop: 08/03/19 10:50 Last Admin: 08/03/19 12:13 Dose: 0.25 mg Documented by: MARCUS Lorazepam (Ativan) 0.25 mg PO NOW ONE Stop: 08/04/19 09:51 Last Admin: 08/04/19 10:14 Dose: 0.25 mg Documented by: MITCHEL Magnesium Oxide (Mag Ox) 500 mg PO BID [facility] Magnesium Oxide (Mag Ox) 400 mg PO NOW ONE Stop: 08/04/19 09:53 Last Admin: 08/04/19 10:15 Dose: 400 mg Documented by: MITCHEL Pantoprazole Sodium (Protonix) 40 mg PO DAILY [facility] Last Admin: 08/04/19 09:17 Dose: 40 mg Documented by: Admin: 08/03/19 10:36 Dose: 40 mg Documented by: MARCUS Propranolol HCl (Inderal) 10 mg PO NOW ONE Stop: 08/03/19 00:22 Last Admin: 08/03/19 01:41 Dose: 10 mg Documented by: RACHELE Propranolol HCl (Inderal) 10 mg PO TID [facility] Last Admin: 08/04/19 09:18 Dose: 10 mg Documented by: Admin: 08/03/19 23:25 Dose: 10 mg Documented by: MARIA A Admin: 08/03/19 19:42 Dose: Not Given Documented by: MARIA A Admin: 08/03/19 10:34 Dose: 10 mg Documented by: MARCUS Ranitidine HCl (Zantac) 150 mg PO DAILY [facility] Last Admin: 08/04/19 09:18 Dose: 150 mg Documented by: Admin: 08/03/19 10:36 Dose: 150 mg Documented by: MARCUS Risperidone (Risperdal) 0.5 mg PO DAILY [facility] Last Admin: 08/04/19 09:50 Dose: Not Given Documented by: Admin: 08/03/19 10:33 Dose: 0.5 mg Documented by: MARCUS Risperidone (Risperidone Odt) 0.5 mg NOW ONE Stop: 08/03/19 00:59 Last Admin: 08/03/19 01:40 Dose: 0.5 mg Documented by: RACHELE Sucralfate (Carafate) 1 gm PO Q6HR [facility] Last Admin: 08/04/19 12:08 Dose: Not Given Documented by: Admin: 08/04/19 09:15 Dose: 1 gm Documented by: Admin: 08/04/19 00:10 Dose: Not Given Documented by: MARIA A Admin: 08/03/19 23:45 Dose: 1 gm Documented by: MARIA A Admin: 08/03/19 23:45 Dose: Not Given Documented by: MARIA A Admin: 08/03/19 10:33 Dose: 1 gm Documented by: MARCUS Topiramate (Topamax) 25 mg PO NOW ONE Stop: 08/03/19 00:22 Last Admin: 08/03/19 01:40 Dose: 25 mg Documented by: RACHELE Topiramate (Topamax) 25 mg PO BID [facility] Last Admin: 08/04/19 09:18 Dose: 25 mg Documented by: Admin: 08/03/19 23:24 Dose: 25 mg Documented by: MARIA A Admin: 08/03/19 10:35 Dose: 25 mg Documented by: MARCUS Vitamin D (Vitamin D3) 1,000 unit PO DAILY [facility] Last Admin: 08/04/19 09:16 Dose: 1,000 unit Documented by: Admin: 08/03/19 10:35 Dose: 1,000 unit Documented by: MARCUS Vital Signs Vital signs: Vital Signs - 8 hr 08/04/19 09:02 08/04/19 14:54 Temperature 97.2 F L 97.0 F L Pulse Rate 80 77 Respiratory Rate 14 14 Blood Pressure [Right Arm] 107/67 114/75 Pulse Oximetry 95 98 <Aliza Anderson DO - Last Filed: 08/04/19 16:24> Orders Ordered: Discontinued Medications Ascorbic Acid (Vitamin C) 500 mg PO DAILY [facility] Last Admin: 08/04/19 09:15 Dose: 500 mg Documented by: Admin: 08/03/19 10:35 Dose: 500 mg Documented by: MARCUS Bacitracin (Bacitracin) 1 applic TOP NOW ONE Stop: 08/03/19 16:23 Last Admin: 08/03/19 23:31 Dose: 1 applic Documented by: MARIA A Calcium Citrate (Citracal) 200 mg PO DAILY [facility] Last Admin: 08/04/19 09:16 Dose: 200 mg Documented by: Admin: 08/03/19 10:32 Dose: 200 mg Documented by: MARCUS Duloxetine HCl (Cymbalta) 30 mg PO NOW ONE Stop: 08/03/19 00:22 Last Admin: 08/03/19 00:51 Dose: 30 mg Documented by: RACHELE Duloxetine HCl (Cymbalta) 30 mg PO BID [facility] Last Admin: 08/04/19 09:38 Dose: 30 mg Documented by: Admin: 08/03/19 23:25 Dose: 30 mg Documented by: MARIA A Admin: 08/03/19 10:33 Dose: 30 mg Documented by: MARCUS Ferrous Sulfate (Ferrous Sulfate) 325 mg PO DAILY [facility] Last Admin: 08/04/19 09:16 Dose: 325 mg Documented by: Admin: 08/03/19 10:35 Dose: 325 mg Documented by: MARCUS Hydroxyzine Pamoate (Vistaril) 25 mg PO QID PRN PRN Reason: Anxiety Stop: 08/06/19 00:24 Last Admin: 08/03/19 00:51 Dose: 25 mg Documented by: RACHELE Ibuprofen (Advil) 400 mg PO NOW ONE Stop: 08/02/19 15:38 Last Admin: 08/02/19 15:43 Dose: 400 mg Documented by: ANDRESSA Ibuprofen (Advil) 800 mg PO NOW ONE Stop: 08/03/19 19:47 Last Admin: 08/03/19 19:51 Dose: 800 mg Documented by: MARIA A Levetiracetam (Keppra) 1,500 mg PO NOW ONE Stop: 08/03/19 00:22 Last Admin: 08/03/19 00:51 Dose: 1,500 mg Documented by: RACHELE Levetiracetam (Keppra) 1,500 mg PO BID [facility] Last Admin: 08/04/19 09:16 Dose: 1,500 mg Documented by: Admin: 08/03/19 23:26 Dose: 1,500 mg Documented by: MARIA A Admin: 08/03/19 10:32 Dose: 1,500 mg Documented by: MARCUS Lorazepam (Ativan) 0.5 mg PO NOW ONE Stop: 08/02/19 05:18 Last Admin: 08/02/19 08:16 Dose: 0.5 mg Documented by: MARCUS Lorazepam (Ativan) 0.5 mg PO NOW ONE Stop: 08/02/19 15:38 Last Admin: 08/02/19 15:43 Dose: 0.5 mg Documented by: ANDRESSA Lorazepam (Ativan) 0.5 mg PO NOW ONE Stop: 08/03/19 00:22 Last Admin: 08/03/19 00:52 Dose: 0.5 mg Documented by: RACHELE Lorazepam (Ativan) 0.25 mg PO NOW ONE Stop: 08/03/19 10:50 Last Admin: 08/03/19 12:13 Dose: 0.25 mg Documented by: MARCUS Lorazepam (Ativan) 0.25 mg PO NOW ONE Stop: 08/04/19 09:51 Last Admin: 08/04/19 10:14 Dose: 0.25 mg Documented by: MITCHEL Magnesium Oxide (Mag Ox) 500 mg PO BID [facility] Magnesium Oxide (Mag Ox) 400 mg PO NOW ONE Stop: 08/04/19 09:53 Last Admin: 08/04/19 10:15 Dose: 400 mg Documented by: MITCHEL Pantoprazole Sodium (Protonix) 40 mg PO DAILY [facility] Last Admin: 08/04/19 09:17 Dose: 40 mg Documented by: Admin: 08/03/19 10:36 Dose: 40 mg Documented by: MARCUS Propranolol HCl (Inderal) 10 mg PO NOW ONE Stop: 08/03/19 00:22 Last Admin: 08/03/19 01:41 Dose: 10 mg Documented by: RACHELE Propranolol HCl (Inderal) 10 mg PO TID [facility] Last Admin: 08/04/19 09:18 Dose: 10 mg Documented by: Admin: 08/03/19 23:25 Dose: 10 mg Documented by: MARIA A Admin: 08/03/19 19:42 Dose: Not Given Documented by: MARIA A Admin: 08/03/19 10:34 Dose: 10 mg Documented by: MARCUS Ranitidine HCl (Zantac) 150 mg PO DAILY [facility] Last Admin: 08/04/19 09:18 Dose: 150 mg Documented by: Admin: 08/03/19 10:36 Dose: 150 mg Documented by: MARCUS Risperidone (Risperdal) 0.5 mg PO DAILY [facility] Last Admin: 08/04/19 09:50 Dose: Not Given Documented by: Admin: 08/03/19 10:33 Dose: 0.5 mg Documented by: MARCUS Risperidone (Risperidone Odt) 0.5 mg SL NOW ONE Stop: 08/03/19 00:59 Last Admin: 08/03/19 01:40 Dose: 0.5 mg Documented by: RACHELE Sucralfate (Carafate) 1 gm PO Q6HR [facility] Last Admin: 08/04/19 12:08 Dose: Not Given Documented by: Admin: 08/04/19 09:15 Dose: 1 gm Documented by: Admin: 08/04/19 00:10 Dose: Not Given Documented by: MARIA A Admin: 08/03/19 23:45 Dose: 1 gm Documented by: MARIA A Admin: 08/03/19 23:45 Dose: Not Given Documented by: MARIA A Admin: 08/03/19 10:33 Dose: 1 gm Documented by: MARCUS Topiramate (Topamax) 25 mg PO NOW ONE Stop: 08/03/19 00:22 Last Admin: 08/03/19 01:40 Dose: 25 mg Documented by: RACHELE Topiramate (Topamax) 25 mg PO BID [facility] Last Admin: 08/04/19 09:18 Dose: 25 mg Documented by: Admin: 08/03/19 23:24 Dose: 25 mg Documented by: MARIA A Admin: 08/03/19 10:35 Dose: 25 mg Documented by: MARCUS Vitamin D (Vitamin D3) 1,000 unit PO DAILY [facility] Last Admin: 08/04/19 09:16 Dose: 1,000 unit Documented by: Admin: 08/03/19 10:35 Dose: 1,000 unit Documented by: MARCUS Vital Signs Vital signs: Vital Signs - 8 hr 08/04/19 09:02 08/04/19 14:54 Temperature 97.2 F L 97.0 F L Pulse Rate 80 77 Respiratory Rate 14 14 Blood Pressure [Right Arm] 107/67 114/75 Pulse Oximetry 95 98 <Shubham Barahona DO - Last Filed: 08/04/19 06:48> Orders Ordered: Discontinued Medications Ascorbic Acid (Vitamin C) 500 mg PO DAILY [facility] Last Admin: 08/04/19 09:15 Dose: 500 mg Documented by: Admin: 08/03/19 10:35 Dose: 500 mg Documented by: MARCUS Bacitracin (Bacitracin) 1 applic TOP NOW ONE Stop: 08/03/19 16:23 Last Admin: 08/03/19 23:31 Dose: 1 applic Documented by: MARIA A Calcium Citrate (Citracal) 200 mg PO DAILY [facility] Last Admin: 08/04/19 09:16 Dose: 200 mg Documented by: Admin: 08/03/19 10:32 Dose: 200 mg Documented by: MARCUS Duloxetine HCl (Cymbalta) 30 mg PO NOW ONE Stop: 08/03/19 00:22 Last Admin: 08/03/19 00:51 Dose: 30 mg Documented by: RACHELE Duloxetine HCl (Cymbalta) 30 mg PO BID [facility] Last Admin: 08/04/19 09:38 Dose: 30 mg Documented by: Admin: 08/03/19 23:25 Dose: 30 mg Documented by: MARIA A Admin: 08/03/19 10:33 Dose: 30 mg Documented by: MARCUS Ferrous Sulfate (Ferrous Sulfate) 325 mg PO DAILY [facility] Last Admin: 08/04/19 09:16 Dose: 325 mg Documented by: Admin: 08/03/19 10:35 Dose: 325 mg Documented by: MARCUS Hydroxyzine Pamoate (Vistaril) 25 mg PO QID PRN PRN Reason: Anxiety Stop: 08/06/19 00:24 Last Admin: 08/03/19 00:51 Dose: 25 mg Documented by: RACHELE Ibuprofen (Advil) 400 mg PO NOW ONE Stop: 08/02/19 15:38 Last Admin: 08/02/19 15:43 Dose: 400 mg Documented by: ANDRESSA Ibuprofen (Advil) 800 mg PO NOW ONE Stop: 08/03/19 19:47 Last Admin: 08/03/19 19:51 Dose: 800 mg Documented by: MARIA A Levetiracetam (Keppra) 1,500 mg PO NOW ONE Stop: 08/03/19 00:22 Last Admin: 08/03/19 00:51 Dose: 1,500 mg Documented by: RACHELE Levetiracetam (Keppra) 1,500 mg PO BID [facility] Last Admin: 08/04/19 09:16 Dose: 1,500 mg Documented by: Admin: 08/03/19 23:26 Dose: 1,500 mg Documented by: MARIA A Admin: 08/03/19 10:32 Dose: 1,500 mg Documented by: MARCUS Lorazepam (Ativan) 0.5 mg PO NOW ONE Stop: 08/02/19 05:18 Last Admin: 08/02/19 08:16 Dose: 0.5 mg Documented by: MARCUS Lorazepam (Ativan) 0.5 mg PO NOW ONE Stop: 08/02/19 15:38 Last Admin: 08/02/19 15:43 Dose: 0.5 mg Documented by: ANDRESSA Lorazepam (Ativan) 0.5 mg PO NOW ONE Stop: 08/03/19 00:22 Last Admin: 08/03/19 00:52 Dose: 0.5 mg Documented by: RACHELE Lorazepam (Ativan) 0.25 mg PO NOW ONE Stop: 08/03/19 10:50 Last Admin: 08/03/19 12:13 Dose: 0.25 mg Documented by: MARCUS Lorazepam (Ativan) 0.25 mg PO NOW ONE Stop: 08/04/19 09:51 Last Admin: 08/04/19 10:14 Dose: 0.25 mg Documented by: MITCHEL Magnesium Oxide (Mag Ox) 500 mg PO BID [facility] Magnesium Oxide (Mag Ox) 400 mg PO NOW ONE Stop: 08/04/19 09:53 Last Admin: 08/04/19 10:15 Dose: 400 mg Documented by: MITCHEL Pantoprazole Sodium (Protonix) 40 mg PO DAILY [facility] Last Admin: 08/04/19 09:17 Dose: 40 mg Documented by: Admin: 08/03/19 10:36 Dose: 40 mg Documented by: MARCUS Propranolol HCl (Inderal) 10 mg PO NOW ONE Stop: 08/03/19 00:22 Last Admin: 08/03/19 01:41 Dose: 10 mg Documented by: RACHELE Propranolol HCl (Inderal) 10 mg PO TID [facility] Last Admin: 08/04/19 09:18 Dose: 10 mg Documented by: Admin: 08/03/19 23:25 Dose: 10 mg Documented by: MARIA A Admin: 08/03/19 19:42 Dose: Not Given Documented by: MARIA A Admin: 08/03/19 10:34 Dose: 10 mg Documented by: MARCUS Ranitidine HCl (Zantac) 150 mg PO DAILY [facility] Last Admin: 08/04/19 09:18 Dose: 150 mg Documented by: Admin: 08/03/19 10:36 Dose: 150 mg Documented by: MARCUS Risperidone (Risperdal) 0.5 mg PO DAILY [facility] Last Admin: 08/04/19 09:50 Dose: Not Given Documented by: Admin: 08/03/19 10:33 Dose: 0.5 mg Documented by: MARCUS Risperidone (Risperidone Odt) 0.5 mg SL NOW ONE Stop: 08/03/19 00:59 Last Admin: 08/03/19 01:40 Dose: 0.5 mg Documented by: RACHELE Sucralfate (Carafate) 1 gm PO Q6HR [facility] Last Admin: 08/04/19 12:08 Dose: Not Given Documented by: Admin: 08/04/19 09:15 Dose: 1 gm Documented by: Admin: 08/04/19 00:10 Dose: Not Given Documented by: MARIA A Admin: 08/03/19 23:45 Dose: 1 gm Documented by: MARIA A Admin: 08/03/19 23:45 Dose: Not Given Documented by: MARIA A Admin: 08/03/19 10:33 Dose: 1 gm Documented by: MARCUS Topiramate (Topamax) 25 mg PO NOW ONE Stop: 08/03/19 00:22 Last Admin: 08/03/19 01:40 Dose: 25 mg Documented by: RACHELE Topiramate (Topamax) 25 mg PO BID [facility] Last Admin: 08/04/19 09:18 Dose: 25 mg Documented by: Admin: 08/03/19 23:24 Dose: 25 mg Documented by: MARIA A Admin: 08/03/19 10:35 Dose: 25 mg Documented by: MARCUS Vitamin D (Vitamin D3) 1,000 unit PO DAILY [facility] Last Admin: 08/04/19 09:16 Dose: 1,000 unit Documented by: Admin: 08/03/19 10:35 Dose: 1,000 unit Documented by: MARCUS Vital Signs Vital signs: Vital Signs - 8 hr 08/04/19 09:02 08/04/19 14:54 Temperature 97.2 F L 97.0 F L Pulse Rate 80 77 Respiratory Rate 14 14 Blood Pressure [Right Arm] 107/67 114/75 Pulse Oximetry 95 98 MDM - Psych <Brandon Galloway, DO - Last Filed: 08/02/19 06:58> Lab Data Result diagrams: 08/02/19 02:40 08/02/19 02:40 Labs: Lab Results 08/02/19 08/02/19 08/02/19 Range/Units 02:08 02:40 02:40 WBC 8.8 (4.5-11.0) X10^3/uL RBC 3.69 L (4.0-5.2) X10^6/uL Hgb 11.5 L (12.0-16.0) g/dL Hct 34.5 L (36-46) % MCV 93.5 (80-100) fL MCH 31.1 (26-34) PG MCHC 33.3 (30-36) % RDW 13.5 (11.6-14.8) % Plt Count 247 (150-400) X10^3/uL Neut % (Auto) 47.1 L (50-75) % Lymph % (Auto) 44.1 H (25-40) % [place] % (Auto) 5.7 (3-14) % Eos % (Auto) 2.4 (2-4) % Baso % (Auto) 0.7 (0-2) % Neut # (Auto) 4200 (2274-5314) /uL Lymph # (Auto) 3900 (4147-6800) /uL [place] # (Auto) 500 (0-900) /uL Eos # (Auto) 200 (0-450) /uL Baso # (Auto) 100 (0-100) /uL Sodium 139 (137-145) mmol/L Potassium 4.1 (3.4-5.1) mmol/L Chloride 106 (98-107) mmol/L Carbon Dioxide 26 (22-32) mmol/L BUN 14 (7-17) mg/dL Creatinine 0.80 (0.52-1.04) mg/dL Estimated GFR > 60.0 (>60) mL/min BUN/Creatinine Ratio 17.5 (6-22) Glucose 101 H (70-100) mg/dL Calcium 9.2 (8.4-10.2) mg/dL Total Bilirubin 0.6 (0.2-1.3) mg/dL AST 21 (14-36) IU/L ALT 16 (<35) IU/L Alkaline Phosphatase 82 (38-126) U/L Total Protein 6.7 (6.3-8.2) g/dL Albumin 4.0 (3.5-5.0) g/dL Globulin 2.7 (1.7-4.1) g/dL Albumin/Globulin Ratio 1.5 (1.0-2.8) TSH (0.47-4.68) uIU/mL U Opiates 300ng/mL cut Negative (Negative) Ur Oxycodone Screen Negative (Negative) Urine Methadone Screen Negative (Negative) Ur Barbiturates Screen Negative (Negative) U Tricyclic Antidepress Positive H (Negative) Ur Phencyclidine Scrn Negative (Negative) Ur Amphetamines Screen Negative (Negative) U Methamphetamines Scrn Negative (Negative) Ur MDMA Scrn (Ecstasy) Negative (Negative) U Benzodiazepines Scrn Negative (Negative) Urine Cocaine Screen Negative (Negative) U Marijuana (THC) Screen Negative (Negative) Ethyl Alcohol < 10 ( - 10) mg/dL 08/02/19 Range/Units 02:40 WBC (4.5-11.0) X10^3/uL RBC (4.0-5.2) X10^6/uL Hgb (12.0-16.0) g/dL Hct (36-46) % MCV (80-100) fL MCH (26-34) PG MCHC (30-36) % RDW (11.6-14.8) % Plt Count (150-400) X10^3/uL Neut % (Auto) (50-75) % Lymph % (Auto) (25-40) % [place] % (Auto) (3-14) % Eos % (Auto) (2-4) % Baso % (Auto) (0-2) % Neut # (Auto) (8397-0605) /uL Lymph # (Auto) (7107-2098) /uL [place] # (Auto) (0-900) /uL Eos # (Auto) (0-450) /uL Baso # (Auto) (0-100) /uL Sodium (137-145) mmol/L Potassium (3.4-5.1) mmol/L Chloride (98-107) mmol/L Carbon Dioxide (22-32) mmol/L BUN (7-17) mg/dL Creatinine (0.52-1.04) mg/dL Estimated GFR (>60) mL/min BUN/Creatinine Ratio (6-22) Glucose (70-100) mg/dL Calcium (8.4-10.2) mg/dL Total Bilirubin (0.2-1.3) mg/dL AST (14-36) IU/L ALT (<35) IU/L Alkaline Phosphatase (38-126) U/L Total Protein (6.3-8.2) g/dL Albumin (3.5-5.0) g/dL Globulin (1.7-4.1) g/dL Albumin/Globulin Ratio (1.0-2.8) TSH 3.54 (0.47-4.68) uIU/mL U Opiates 300ng/mL cut (Negative) Ur Oxycodone Screen (Negative) Urine Methadone Screen (Negative) Ur Barbiturates Screen (Negative) U Tricyclic Antidepress (Negative) Ur Phencyclidine Scrn (Negative) Ur Amphetamines Screen (Negative) U Methamphetamines Scrn (Negative) Ur MDMA Scrn (Ecstasy) (Negative) U Benzodiazepines Scrn (Negative) Urine Cocaine Screen (Negative) U Marijuana (THC) Screen (Negative) Ethyl Alcohol ( - 10) mg/dL Point of Care Testing Test Results Negative Glucose POC 87 Urine Dip Bedside Urine Glucose Negative Bedside Urine Bilirubin ++ 2 Bedside Urine Ketone + 15 Urine Specific [place] 1.020 Bedside Urine Occult Blood - Negative Bedside Urine pH 6.0 Bedside Urine Protein + 30 Bedside Urine Urobilinogen +/- 1mg Bedside Urine Nitrite - Negative Bedside Urine Leukocytes +/- 15 Esterase <Krupa Fong MD - Last Filed: 08/02/19 19:55> Lab Data Labs: Lab Results 12/31/19 12/31/19 12/31/19 Range/Units 02:08 02:40 02:40 WBC 8.8 (4.5-11.0) X10^3/uL RBC 3.69 L (4.0-5.2) X10^6/uL Hgb 11.5 L (12.0-16.0) g/dL Hct 34.5 L (36-46) % MCV 93.5 (80-100) fL MCH 31.1 (26-34) PG MCHC 33.3 (30-36) % RDW 13.5 (11.6-14.8) % Plt Count 247 (150-400) X10^3/uL Neut % (Auto) 47.1 L (50-75) % Lymph % (Auto) 44.1 H (25-40) % [place] % (Auto) 5.7 (3-14) % Eos % (Auto) 2.4 (2-4) % Baso % (Auto) 0.7 (0-2) % Neut # (Auto) 4200 (8561-1886) /uL Lymph # (Auto) 3900 (5625-3007) /uL [place] # (Auto) 500 (0-900) /uL Eos # (Auto) 200 (0-450) /uL Baso # (Auto) 100 (0-100) /uL Sodium 139 (137-145) mmol/L Potassium 4.1 (3.4-5.1) mmol/L Chloride 106 (98-107) mmol/L Carbon Dioxide 26 (22-32) mmol/L BUN 14 (7-17) mg/dL Creatinine 0.80 (0.52-1.04) mg/dL Estimated GFR > 60.0 (>60) mL/min BUN/Creatinine Ratio 17.5 (6-22) Glucose 101 H (70-100) mg/dL Calcium 9.2 (8.4-10.2) mg/dL Total Bilirubin 0.6 (0.2-1.3) mg/dL AST 21 (14-36) IU/L ALT 16 (<35) IU/L Alkaline Phosphatase 82 (38-126) U/L Total Protein 6.7 (6.3-8.2) g/dL Albumin 4.0 (3.5-5.0) g/dL Globulin 2.7 (1.7-4.1) g/dL Albumin/Globulin Ratio 1.5 (1.0-2.8) TSH (0.47-4.68) uIU/mL U Opiates 300ng/mL cut Negative (Negative) Ur Oxycodone Screen Negative (Negative) Urine Methadone Screen Negative (Negative) Ur Barbiturates Screen Negative (Negative) U Tricyclic Antidepress Positive H (Negative) Ur Phencyclidine Scrn Negative (Negative) Ur Amphetamines Screen Negative (Negative) U Methamphetamines Scrn Negative (Negative) Ur MDMA Scrn (Ecstasy) Negative (Negative) U Benzodiazepines Scrn Negative (Negative) Urine Cocaine Screen Negative (Negative) U Marijuana (THC) Screen Negative (Negative) Ethyl Alcohol < 10 ( - 10) mg/dL 08/02/19 Range/Units 02:40 WBC (4.5-11.0) X10^3/uL RBC (4.0-5.2) X10^6/uL Hgb (12.0-16.0) g/dL Hct (36-46) % MCV (80-100) fL MCH (26-34) PG MCHC (30-36) % RDW (11.6-14.8) % Plt Count (150-400) X10^3/uL Neut % (Auto) (50-75) % Lymph % (Auto) (25-40) % [place] % (Auto) (3-14) % Eos % (Auto) (2-4) % Baso % (Auto) (0-2) % Neut # (Auto) (0224-6944) /uL Lymph # (Auto) (3258-8895) /uL [place] # (Auto) (0-900) /uL Eos # (Auto) (0-450) /uL Baso # (Auto) (0-100) /uL Sodium (137-145) mmol/L Potassium (3.4-5.1) mmol/L Chloride (98-107) mmol/L Carbon Dioxide (22-32) mmol/L BUN (7-17) mg/dL Creatinine (0.52-1.04) mg/dL Estimated GFR (>60) mL/min BUN/Creatinine Ratio (6-22) Glucose (70-100) mg/dL Calcium (8.4-10.2) mg/dL Total Bilirubin (0.2-1.3) mg/dL AST (14-36) IU/L ALT (<35) IU/L Alkaline Phosphatase (38-126) U/L Total Protein (6.3-8.2) g/dL Albumin (3.5-5.0) g/dL Globulin (1.7-4.1) g/dL Albumin/Globulin Ratio (1.0-2.8) TSH 3.54 (0.47-4.68) uIU/mL U Opiates 300ng/mL cut (Negative) Ur Oxycodone Screen (Negative) Urine Methadone Screen (Negative) Ur Barbiturates Screen (Negative) U Tricyclic Antidepress (Negative) Ur Phencyclidine Scrn (Negative) Ur Amphetamines Screen (Negative) U Methamphetamines Scrn (Negative) Ur MDMA Scrn (Ecstasy) (Negative) U Benzodiazepines Scrn (Negative) Urine Cocaine Screen (Negative) U Marijuana (THC) Screen (Negative) Ethyl Alcohol ( - 10) mg/dL Point of Care Testing Test Results Negative Glucose POC 87 Urine Dip Bedside Urine Glucose Negative Bedside Urine Bilirubin ++ 2 Bedside Urine Ketone + [address] [place] 1.020 Bedside Urine Occult Blood - Negative Bedside Urine pH 6.0 Bedside Urine Protein + 30 Bedside Urine Urobilinogen +/- 1mg Bedside Urine Nitrite - Negative Bedside Urine Leukocytes +/- 15 Esterase <Reny Sanchez, DO - Last Filed: 08/03/19 06:34> Lab Data Labs: Lab Results 08/02/19 08/02/19 08/02/19 Range/Units 02:08 02:40 02:40 WBC 8.8 (4.5-11.0) X10^3/uL RBC 3.69 L (4.0-5.2) X10^6/uL Hgb 11.5 L (12.0-16.0) g/dL Hct 34.5 L (36-46) % MCV 93.5 (80-100) fL MCH 31.1 (26-34) PG MCHC 33.3 (30-36) % RDW 13.5 (11.6-14.8) % Plt Count 247 (150-400) X10^3/uL Neut % (Auto) 47.1 L (50-75) % Lymph % (Auto) 44.1 H (25-40) % [place] % (Auto) 5.7 (3-14) % Eos % (Auto) 2.4 (2-4) % Baso % (Auto) 0.7 (0-2) % Neut # (Auto) 4200 (8441-7978) /uL Lymph # (Auto) 3900 (5850-2552) /uL [place] # (Auto) 500 (0-900) /uL Eos # (Auto) 200 (0-450) /uL Baso # (Auto) 100 (0-100) /uL Sodium 139 (137-145) mmol/L Potassium 4.1 (3.4-5.1) mmol/L Chloride 106 (98-107) mmol/L Carbon Dioxide 26 (22-32) mmol/L BUN 14 (7-17) mg/dL Creatinine 0.80 (0.52-1.04) mg/dL Estimated GFR > 60.0 (>60) mL/min BUN/Creatinine Ratio 17.5 (6-22) Glucose 101 H (70-100) mg/dL Calcium 9.2 (8.4-10.2) mg/dL Total Bilirubin 0.6 (0.2-1.3) mg/dL AST 21 (14-36) IU/L ALT 16 (<35) IU/L Alkaline Phosphatase 82 (38-126) U/L Total Protein 6.7 (6.3-8.2) g/dL Albumin 4.0 (3.5-5.0) g/dL Globulin 2.7 (1.7-4.1) g/dL Albumin/Globulin Ratio 1.5 (1.0-2.8) TSH (0.47-4.68) uIU/mL U Opiates 300ng/mL cut Negative (Negative) Ur Oxycodone Screen Negative (Negative) Urine Methadone Screen Negative (Negative) Ur Barbiturates Screen Negative (Negative) U Tricyclic Antidepress Positive H (Negative) Ur Phencyclidine Scrn Negative (Negative) Ur Amphetamines Screen Negative (Negative) U Methamphetamines Scrn Negative (Negative) Ur MDMA Scrn (Ecstasy) Negative (Negative) U Benzodiazepines Scrn Negative (Negative) Urine Cocaine Screen Negative (Negative) U Marijuana (THC) Screen Negative (Negative) Ethyl Alcohol < 10 ( - 10) mg/dL 08/02/19 Range/Units 02:40 WBC (4.5-11.0) X10^3/uL RBC (4.0-5.2) X10^6/uL Hgb (12.0-16.0) g/dL Hct (36-46) % MCV (80-100) fL MCH (26-34) PG MCHC (30-36) % RDW (11.6-14.8) % Plt Count (150-400) X10^3/uL Neut % (Auto) (50-75) % Lymph % (Auto) (25-40) % [place] % (Auto) (3-14) % Eos % (Auto) (2-4) % Baso % (Auto) (0-2) % Neut # (Auto) (1891-4696) /uL Lymph # (Auto) (4555-7205) /uL [place] # (Auto) (0-900) /uL Eos # (Auto) (0-450) /uL Baso # (Auto) (0-100) /uL Sodium (137-145) mmol/L Potassium (3.4-5.1) mmol/L Chloride (98-107) mmol/L Carbon Dioxide (22-32) mmol/L BUN (7-17) mg/dL Creatinine (0.52-1.04) mg/dL Estimated GFR (>60) mL/min BUN/Creatinine Ratio (6-22) Glucose (70-100) mg/dL Calcium (8.4-10.2) mg/dL Total Bilirubin (0.2-1.3) mg/dL AST (14-36) IU/L ALT (<35) IU/L Alkaline Phosphatase (38-126) U/L Total Protein (6.3-8.2) g/dL Albumin (3.5-5.0) g/dL Globulin (1.7-4.1) g/dL Albumin/Globulin Ratio (1.0-2.8) TSH 3.54 (0.47-4.68) uIU/mL U Opiates 300ng/mL cut (Negative) Ur Oxycodone Screen (Negative) Urine Methadone Screen (Negative) Ur Barbiturates Screen (Negative) U Tricyclic Antidepress (Negative) Ur Phencyclidine Scrn (Negative) Ur Amphetamines Screen (Negative) U Methamphetamines Scrn (Negative) Ur MDMA Scrn (Ecstasy) (Negative) U Benzodiazepines Scrn (Negative) Urine Cocaine Screen (Negative) U Marijuana (THC) Screen (Negative) Ethyl Alcohol ( - 10) mg/dL Point of Care Testing Test Results Negative Glucose POC 87 Urine Dip Bedside Urine Glucose Negative Bedside Urine Bilirubin ++ 2 Bedside Urine Ketone + 15 Urine Specific [place] 1.020 Bedside Urine Occult Blood - Negative Bedside Urine pH 6.0 Bedside Urine Protein + 30 Bedside Urine Urobilinogen +/- 1mg Bedside Urine Nitrite - Negative Bedside Urine Leukocytes +/- 15 Esterase MDM Narrative Medical decision making narrative: Patient signed out to me by Dr. Scnalon awaiting placement. Patient has been denied at [facility] in [place]. She is given her night medications. Social work will need to re-evaluate. Patient signed out to Dr. Anderson <Aliza Anderson, DO - Last Filed: 08/04/19 16:24> Lab Data Attestation: I reviewed the patient's lab results. Labs: Lab Results 08/02/19 08/02/19 08/02/19 Range/Units 02:08 02:40 02:40 WBC 8.8 (4.5-11.0) X10^3/uL RBC 3.69 L (4.0-5.2) X10^6/uL Hgb 11.5 L (12.0-16.0) g/dL Hct 34.5 L (36-46) % MCV 93.5 (80-100) fL MCH 31.1 (26-34) PG MCHC 33.3 (30-36) % RDW 13.5 (11.6-14.8) % Plt Count 247 (150-400) X10^3/uL Neut % (Auto) 47.1 L (50-75) % Lymph % (Auto) 44.1 H (25-40) % [place] % (Auto) 5.7 (3-14) % Eos % (Auto) 2.4 (2-4) % Baso % (Auto) 0.7 (0-2) % Neut # (Auto) 4200 (2179-4715) /uL Lymph # (Auto) 3900 (2165-9923) /uL [place] # (Auto) 500 (0-900) /uL Eos # (Auto) 200 (0-450) /uL Baso # (Auto) 100 (0-100) /uL Sodium 139 (137-145) mmol/L Potassium 4.1 (3.4-5.1) mmol/L Chloride 106 (98-107) mmol/L Carbon Dioxide 26 (22-32) mmol/L BUN 14 (7-17) mg/dL Creatinine 0.80 (0.52-1.04) mg/dL Estimated GFR > 60.0 (>60) mL/min BUN/Creatinine Ratio 17.5 (6-22) Glucose 101 H (70-100) mg/dL Calcium 9.2 (8.4-10.2) mg/dL Total Bilirubin 0.6 (0.2-1.3) mg/dL AST 21 (14-36) IU/L ALT 16 (<35) IU/L Alkaline Phosphatase 82 (38-126) U/L Total Protein 6.7 (6.3-8.2) g/dL Albumin 4.0 (3.5-5.0) g/dL Globulin 2.7 (1.7-4.1) g/dL Albumin/Globulin Ratio 1.5 (1.0-2.8) TSH (0.47-4.68) uIU/mL U Opiates 300ng/mL cut Negative (Negative) Ur Oxycodone Screen Negative (Negative) Urine Methadone Screen Negative (Negative) Ur Barbiturates Screen Negative (Negative) U Tricyclic Antidepress Positive H (Negative) Ur Phencyclidine Scrn Negative (Negative) Ur Amphetamines Screen Negative (Negative) U Methamphetamines Scrn Negative (Negative) Ur MDMA Scrn (Ecstasy) Negative (Negative) U Benzodiazepines Scrn Negative (Negative) Urine Cocaine Screen Negative (Negative) U Marijuana (THC) Screen Negative (Negative) Ethyl Alcohol < 10 ( - 10) mg/dL 08/02/19 Range/Units 02:40 WBC (4.5-11.0) X10^3/uL RBC (4.0-5.2) X10^6/uL Hgb (12.0-16.0) g/dL Hct (36-46) % MCV (80-100) fL MCH (26-34) PG MCHC (30-36) % RDW (11.6-14.8) % Plt Count (150-400) X10^3/uL Neut % (Auto) (50-75) % Lymph % (Auto) (25-40) % [place] % (Auto) (3-14) % Eos % (Auto) (2-4) % Baso % (Auto) (0-2) % Neut # (Auto) (8499-2858) /uL Lymph # (Auto) (8604-2711) /uL [place] # (Auto) (0-900) /uL Eos # (Auto) (0-450) /uL Baso # (Auto) (0-100) /uL Sodium (137-145) mmol/L Potassium (3.4-5.1) mmol/L Chloride (98-107) mmol/L Carbon Dioxide (22-32) mmol/L BUN (7-17) mg/dL Creatinine (0.52-1.04) mg/dL Estimated GFR (>60) mL/min BUN/Creatinine Ratio (6-22) Glucose (70-100) mg/dL Calcium (8.4-10.2) mg/dL Total Bilirubin (0.2-1.3) mg/dL AST (14-36) IU/L ALT (<35) IU/L Alkaline Phosphatase (38-126) U/L Total Protein (6.3-8.2) g/dL Albumin (3.5-5.0) g/dL Globulin (1.7-4.1) g/dL Albumin/Globulin Ratio (1.0-2.8) TSH 3.54 (0.47-4.68) uIU/mL U Opiates 300ng/mL cut (Negative) Ur Oxycodone Screen (Negative) Urine Methadone Screen (Negative) Ur Barbiturates Screen (Negative) U Tricyclic Antidepress (Negative) Ur Phencyclidine Scrn (Negative) Ur Amphetamines Screen (Negative) U Methamphetamines Scrn (Negative) Ur MDMA Scrn (Ecstasy) (Negative) U Benzodiazepines Scrn (Negative) Urine Cocaine Screen (Negative) U Marijuana (THC) Screen (Negative) Ethyl Alcohol ( - 10) mg/dL Point of Care Testing Test Results Negative Glucose POC 87 Urine Dip Bedside Urine Glucose Negative Bedside Urine Bilirubin ++ 2 Bedside Urine Ketone + 15 Urine Specific [place] 1.020 Bedside Urine Occult Blood - Negative Bedside Urine pH 6.0 Bedside Urine Protein + 30 Bedside Urine Urobilinogen +/- 1mg Bedside Urine Nitrite - Negative Bedside Urine Leukocytes +/- 15 Esterase MDM Narrative Medical decision making narrative: Patient signed out to myself by Dr. Sanchez. Patient has been refused by [facility] and Jo and no bed availability at [facility] or [facility] . Patient sleeping initially upon my arrival to the department. Labs reviewed, positive for tricyclics. poc preg negative. Social work is to return this morning for reevaluation and discussion regarding patient safety and final disposition. Patient is feeling better and is requesting to return home as we have not found placement at this time. She feels that she is out in a safer mindset at this time and is not feeling suicidal or having ideation. She does contract for safety. She has follow up with Dr. Fournier her psychiatrist. She has a EMERY counselor and has expressed interest in an adult home or assisted that might help as she often has stressors with her family that exacerbate her symptoms. Social work also met with patient and feels comfortable with this plan. Patient family is refusing to allow patient to return. They did come and see patient here in department. discussion with social work about whether patient would qualify for APS referral. She does currently make her own decisions but does have history of anoxic injury that would likely be difficulty for her to manuever on her own. Patient signed out to Dr. Barahona overnightwith plan for social work to re-evaluate in am. 08/04/19 Social work spoke with mother again. 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 Spoke with Dr. Fournier and he will come to the ER to see the patient his morning. Dr. Fournier saw patient in ED. Feels comfortable with discharge. Patient has follow up scheduled for next two weeks. Patient is also comfortable returning home. Extensive discussion with social work yesterday about EMERY counselor and discussion about adult or assisted options with family. Patient expressed some interest but was worried about being too restrictive at times. We discussed that it would likely be beneficial to visit or talk with facilities to get a better idea of what it would entail. Mother did come to ED at 1530, she and high school social studies teacher also discussed future options to pursue and patient discharged home with mother. <Shubham Barahona, DO - Last Filed: 08/04/19 06:48> Lab Data Labs: Lab Results 08/02/19 08/02/19 08/02/19 Range/Units 02:08 02:40 02:40 WBC 8.8 (4.5-11.0) X10^3/uL RBC 3.69 L (4.0-5.2) X10^6/uL Hgb 11.5 L (12.0-16.0) g/dL Hct 34.5 L (36-46) % MCV 93.5 (80-100) fL MCH 31.1 (26-34) PG MCHC 33.3 (30-36) % RDW 13.5 (11.6-14.8) % Plt Count 247 (150-400) X10^3/uL Neut % (Auto) 47.1 L (50-75) % Lymph % (Auto) 44.1 H (25-40) % [place] % (Auto) 5.7 (3-14) % Eos % (Auto) 2.4 (2-4) % Baso % (Auto) 0.7 (0-2) % Neut # (Auto) 4200 (1107-7086) /uL Lymph # (Auto) 3900 (4301-1041) /uL [place] # (Auto) 500 (0-900) /uL Eos # (Auto) 200 (0-450) /uL Baso # (Auto) 100 (0-100) /uL Sodium 139 (137-145) mmol/L Potassium 4.1 (3.4-5.1) mmol/L Chloride 106 (98-107) mmol/L Carbon Dioxide 26 (22-32) mmol/L BUN 14 (7-17) mg/dL Creatinine 0.80 (0.52-1.04) mg/dL Estimated GFR > 60.0 (>60) mL/min BUN/Creatinine Ratio 17.5 (6-22) Glucose 101 H (70-100) mg/dL Calcium 9.2 (8.4-10.2) mg/dL Total Bilirubin 0.6 (0.2-1.3) mg/dL AST 21 (14-36) IU/L ALT 16 (<35) IU/L Alkaline Phosphatase 82 (38-126) U/L Total Protein 6.7 (6.3-8.2) g/dL Albumin 4.0 (3.5-5.0) g/dL Globulin 2.7 (1.7-4.1) g/dL Albumin/Globulin Ratio 1.5 (1.0-2.8) TSH (0.47-4.68) uIU/mL U Opiates 300ng/mL cut Negative (Negative) Ur Oxycodone Screen Negative (Negative) Urine Methadone Screen Negative (Negative) Ur Barbiturates Screen Negative (Negative) U Tricyclic Antidepress Positive H (Negative) Ur Phencyclidine Scrn Negative (Negative) Ur Amphetamines Screen Negative (Negative) U Methamphetamines Scrn Negative (Negative) Ur MDMA Scrn (Ecstasy) Negative (Negative) U Benzodiazepines Scrn Negative (Negative) Urine Cocaine Screen Negative (Negative) U Marijuana (THC) Screen Negative (Negative) Ethyl Alcohol < 10 ( - 10) mg/dL 08/02/19 Range/Units 02:40 WBC (4.5-11.0) X10^3/uL RBC (4.0-5.2) X10^6/uL Hgb (12.0-16.0) g/dL Hct (36-46) % MCV (80-100) fL MCH (26-34) PG MCHC (30-36) % RDW (11.6-14.8) % Plt Count (150-400) X10^3/uL Neut % (Auto) (50-75) % Lymph % (Auto) (25-40) % [place] % (Auto) (3-14) % Eos % (Auto) (2-4) % Baso % (Auto) (0-2) % Neut # (Auto) (2680-0446) /uL Lymph # (Auto) (6442-4424) /uL [place] # (Auto) (0-900) /uL Eos # (Auto) (0-450) /uL Baso # (Auto) (0-100) /uL Sodium (137-145) mmol/L Potassium (3.4-5.1) mmol/L Chloride (98-107) mmol/L Carbon Dioxide (22-32) mmol/L BUN (7-17) mg/dL Creatinine (0.52-1.04) mg/dL Estimated GFR (>60) mL/min BUN/Creatinine Ratio (6-22) Glucose (70-100) mg/dL Calcium (8.4-10.2) mg/dL Total Bilirubin (0.2-1.3) mg/dL AST (14-36) IU/L ALT (<35) IU/L Alkaline Phosphatase (38-126) U/L Total Protein (6.3-8.2) g/dL Albumin (3.5-5.0) g/dL Globulin (1.7-4.1) g/dL Albumin/Globulin Ratio (1.0-2.8) TSH 3.54 (0.47-4.68) uIU/mL U Opiates 300ng/mL cut (Negative) Ur Oxycodone Screen (Negative) Urine Methadone Screen (Negative) Ur Barbiturates Screen (Negative) U Tricyclic Antidepress (Negative) Ur Phencyclidine Scrn (Negative) Ur Amphetamines Screen (Negative) U Methamphetamines Scrn (Negative) Ur MDMA Scrn (Ecstasy) (Negative) U Benzodiazepines Scrn (Negative) Urine Cocaine Screen (Negative) U Marijuana (THC) Screen (Negative) Ethyl Alcohol ( - 10) mg/dL Point of Care Testing Test Results Negative Glucose POC 87 Urine Dip Bedside Urine Glucose Negative Bedside Urine Bilirubin ++ 2 Bedside Urine Ketone + [address] [place] 1.020 Bedside Urine Occult Blood - Negative Bedside Urine pH 6.0 Bedside Urine Protein + 30 Bedside Urine Urobilinogen +/- 1mg Bedside Urine Nitrite - Negative Bedside Urine Leukocytes +/- 15 Esterase MDM Narrative Medical decision making narrative: Dr Barahona 08/03/19-08/04/19-received turned over. Reviewed patient's history and physical exam. Patient has been calm overnight. Night medications were administered. Social work consult displaced. Care turned back over to day provider at change shift for disposition. Discharge Plan Departure Patient Disposition: Home Clinical Impression: Depression Discharge Date/Time: 08/04/19 16:07 Instructions: DI for Suicidal Ideation-Adult Activity Restrictions/Additional Instructions: Follow up with your psychiatrist Dr. Fournier at your scheduled appointment. I would also recommend discussing an adult assisted or living facility with your EMERY counselor, they can help you navigate this option if you feel it is right for you and it may help decrease some of your stressors. Continue home medications as prescribed. If you're feeling suicidal or having suicidal thoughts, contact the suicide hotline: (this is also a referral number an option for next day follow-up appointments) . Return to the emergency department for suicidal thoughts, thoughts of harming herself or others if you feel unsafe at any time, if you feel that anyone else is a danger to you, or if you have any other new or concerning symptoms. Prescriptions: No Action coenzyme Q10 [Co Q-10] 100 mg capsule 100 mg PO QPM RF: 0 levonorgestrel [Mirena] 20 mcg/24 hr (5 years) intrauterine device 1 ea Intrauterine DIRECTED RF: 0 propranolol 10 mg tablet 10 mg PO TID RF: 0 topiramate [Topamax] 25 mg tablet 25 mg PO BID RF: 0 fluticasone propionate 50 mcg/actuation spray,suspension 1 spray NASAL DAILY Qty: 16 RF: 0 cholecalciferol (vitamin D3) 1,000 unit capsule 1,000 unit PO BID RF: 0 hydroxyzine HCl 25 mg tablet 25 mg PO TID-QID PRN (Reason: anxiety) Qty: 90 RF: 1 Ultimate Lillian Probiotic 30 billion cell capsule,delayed release(DR/EC) 1 cap PO .Q12 RF: 0 sucralfate 100 mg/mL suspension 1 ml PO QID Qty: 400 RF: 0 ranitidine HCl 150 mg tablet 150 mg PO DAILY Qty: 30 RF: 0 pantoprazole 40 mg tablet,delayed release (DR/EC) 40 mg PO DAILY Qty: 30 RF: 0 lorazepam 0.5 mg tablet See Rx Instructions .ROUTE .COMPLEX RF: 0 hydrochlorothiazide 25 mg tablet 25 mg PO DAILY RF: 0 risperidone 1 mg tablet 0.5 mg PO BEDTIME Qty: 30 RF: 0 Hold Instructions: possible AM sedation, unable to wake up in morning triamcinolone acetonide 0.1 % cream 1 applic Topical DIRECTED RF: 0 ferrous sulfate 325 mg (65 mg iron) Tablet 325 mg PO DAILY RF: 0 ascorbic acid (vitamin C) 500 mg Tablet,Chewable 500 mg PO DAILY RF: 0 magnesium oxide 500 mg Tablet 500 mg PO BID RF: 0 levetiracetam 1,000 mg tablet 1,500 mg PO BID RF: 0 furosemide 40 mg tablet 40 mg PO DAILY RF: 0 famotidine 20 mg tablet 20 mg PO DAILY RF: 0 albuterol sulfate [ProAir HFA] 90 mcg/actuation HFA aerosol inhaler 1 - 2 puff INHALATION Q4H PRN (Reason: DIRECTED) RF: 0 duloxetine 30 mg capsule,delayed release(DR/EC) 30 mg PO BID RF: 0 potassium chloride 20 mEq tablet,ER particles/crystals 20 meq PO DAILY RF: 0 calcium citrate-vitamin D3 200-125 mg-unit Tablet 1 tab PO BID RF: 0 cephalexin 500 mg capsule 500 mg PO [id number] RF: 0 Referrals: Jennifer Chung DO [Primary Care Provider] - Ryan Fournier MD [Physician] -
[2019-08-02 02:25] LABS: Ur Creatinine Normal (Normal); Ur Specific Gravity Normal (Normal); Urine pH Normal (Normal)
[2019-08-02 02:26] LABS: UR Morphine/Opiate cutoff 300 Negative (Negative); Urine Amphetamines Negative (Negative); Urine Barbiturates Negative (Negative); Urine Benzodiazepines Negative (Negative); Urine Cocaine Negative (Negative); Urine MDMA Negative (Negative); Urine Methadone Negative (Negative); Urine Methamphetamines Negative (Negative); Urine Oxycodone Negative (Negative); Urine Phencyclidine Negative (Negative); Urine Tetrahydrocannabinol Negative (Negative); Urine Tricyclic Antidepressant Positive (Negative)
[2019-08-02 02:54] LABS: Add Manual Diff / Slide Review NO; Basophils Absolute Auto 100 /uL (0-100); Basophils Percent Auto 0.7 % (0-2); Eosinophils Absolute Auto 200 /uL (0-450); Eosinophils Percent Auto 2.4 % (2-4); Hematocrit 34.5 % (36-46); Hemoglobin 11.5 g/dL (12.0-16.0); Lymphocytes Absolute Auto 3900 /uL (1100-4500); Lymphocytes Percent Auto 44.1 % (25-40); Mean Corpuscular HGB Conc 33.3 % (30-36); Mean Corpuscular Hemoglobin 31.1 PG (26-34); Mean Corpuscular Volume 93.5 fL (80-100); Monocytes Absolute Auto 500 /uL (0-900); Monocytes Percent Auto 5.7 % (3-14); Neutrophils Absolute Auto 4200 /uL (1500-7000); Neutrophils Percent Auto 47.1 % (50-75); Platelet Count 247 X10^3/uL (150-400); Red Blood Cell Count 3.69 X10^6/uL (4.0-5.2); Red Cell Distribution Width 13.5 % (11.6-14.8); White Blood Cell Count 8.8 X10^3/uL (4.5-11.0)
[2019-08-02 03:03] LABS: Alanine Aminotransferase 16 IU/L (<35); Albumin Globulin Ratio 1.5 (1.0-2.8); Alkaline Phosphatase 82 U/L (38-126); Aspartate Aminotransferase 21 IU/L (14-36); BUN Creatinine Ratio 17.5 (6-22); Bilirubin Total 0.6 mg/dL (0.2-1.3); Blood Urea Nitrogen 14 mg/dL (7-17); Calcium 9.2 mg/dL (8.4-10.2); Carbon Dioxide 26 mmol/L (22-32); Chloride 106 mmol/L (98-107); Estimated Glomerular Filt Rate > 60.0 mL/min (>60); Ethanol (ETOH) < 10 mg/dL; Globulin 2.7 g/dL (1.7-4.1); Glucose 101 mg/dL (70-100); HEMOLYSIS < 15 (0-50); Potassium 4.1 mmol/L (3.4-5.1); Sodium 139 mmol/L (137-145); Total Protein 6.7 g/dL (6.3-8.2)
[2019-08-02 03:38] LABS: Thyroid Stimulating Hormone 3.54 uIU/mL (0.47-4.68)
--- NOTE | 2019-08-02 05:36 | PC.NURSE ---
pulled ativan to give patient, patient sleeping. Patient allowed to sleep. Ativan returned to [facility].
--- NOTE | 2019-08-02 07:57 | PC.NURSE ---
breakfast tray provided.
[2019-08-02] MEDS: LORazepam 0.5 MG TABLET PO ×2 (08:16→15:43)
--- NOTE | 2019-08-02 08:19 | PC.NURSE ---
pt only took 0.25mg ativan, states her usual dose in the morning.
--- NOTE | 2019-08-02 08:31 | PC.NURSE ---
Luis is sitting in the room quietly with 2 warm blankets around her shoulders and 2 warm blankets on her lap. She is currently drawing/righting in her journal while rubbing her face/eyes. I asked what she was thinking about an she was thinking about how she broke promises, I reassured her that promises get broken every so often and that things get in the way or other things come up. She was telling me that she wanted to say things to some people who are still here and who aren't here any more. I told her that she still can talk to the people that are here and are not here. I changed the subject to her dog that she loved to talk about. After talking about animals she started to feel better and smile. Pt is now sleeping peacefully on the gurney with HOB elevated.
--- NOTE | 2019-08-02 11:12 | PC.NURSE ---
per DOCUMENT RESTORER , pt wanting inpt admission, will look for placement. also pt requesting lasix daily meds.
--- NOTE | 2019-08-02 11:38 | PC.NURSE ---
verbal order from dr Fong, pt may take her morning meds (pts own)
--- NOTE | 2019-08-02 12:19 | CM.SWNOTE ---
Addendum entered by ROGERS Monroe 08/02/19 13:04: ADD: Current Inpt MH tx attempted: [facility]: does not accept [facility] insurance [place]: only accepts [facility] out of [facility]: has an opening and willing to review, SW faxed clinicals to [phone] to review Will continue looking for Inpt Tx after allowing half an hour for [facility] to review. BF Addendum entered by ROGERS Monroe 08/02/19 12:21: ADD: SW called pt's mother and explained role and mother was able to clarify pt's TBI and that she sees a Neurologist and Press Brake Operator (see below) and that mother has attempted to be involved in pt's mental health treatment due to the home stressors and mother has hoped to learn pt's goals of care and ways to better support her but feels that she has not been allowed to participate much in her treatment. Mother feels that based on pt's baseline and ongoing mental health instability that she would benefit from Inpt MH tx at this time. VIDEO PRODUCTION SPECIALIST called pt's therapist Sumi Hi and left msg on pt status as therapist is on vacation for the holidays. VIDEO PRODUCTION SPECIALIST called pt's psychiatrist Dr. Fournier and left a msg for him as well to update him on pt being in the hospital and possible Inpt Tx. BF Original Note: Patient is a 34 year old female who was admitted to [facility] ED on 08/02/19 very rectangular tank cooper for suicidal ideation. Discharge Planning/Care Management ED Mental Health Evaluation Status Start: 08/02/19 02:23 Freq: Status: Active Protocol: Document 08/02/19 07:53 MME (Rec: 08/02/19 07:53 MME [id number]) Mental Health Evaluation Status Mental Health Evaluation Status Pending ED Psychiatric Symptoms Assessment Start: 08/02/19 02:23 Freq: Status: Active Protocol: Document 08/02/19 01:50 KMW (Rec: 08/02/19 02:35 KMW [id number]) Psychiatric Symptoms Assessment Symptoms/Complaint Suicidal Ideation Duration Getting Worse History Of Same Yes Context Significant Life Stressor Improves With Nothing Associated Psychiatric Symptoms Auditory Hallucinations, Depression,Racing Thoughts, Suicidal Ideation Associated Symptoms Headache If Self Harm Admits Thoughts of Self Harm, Has Plans Details of Plan Pt reports visions of cutting or ripping my stomach open and taking my innards out . Level of Consciousness Alert,Appropriate Patient Orientation Name,Age,Birthday,Month,Date, Year,Day of Week,Place, Situation Patient Behavior/Mood Cooperative,Crying/Tearful, Flat Ability to Follow Directions Good Patient Cognition Impaired TBI Affect Description Calm,Depressed,Flat Patient Appearance Unkempt Thought Process: Normal Depressive Symptoms Back Pain,Crying Spells, Feelings of Worthlessness, Hopelessness,Increased Anxiety ,Increased Fatigue,Increased Irritability,Low Self Esteem, Recurrent Thoughts of or Suicide,Unhappiness Major Depressive Episode Yes Feelings of Hopelessness Yes Suicidal Ideation Vague,Frequent Suicide Plan Vague Homicidal Ideation None Nausea/Vomiting None Document 08/02/19 03:50 KMW (Rec: 08/02/19 04:25 KMW [id number]) Psychiatric Symptoms Assessment Patient Behavior/Mood Asleep Document 08/02/19 04:00 KMW (Rec: 08/02/19 07:25 KMW [id number]) Psychiatric Symptoms Assessment Patient Behavior/Mood Asleep Document 08/02/19 07:53 MME (Rec: 08/02/19 07:57 MME [id number]) Psychiatric Symptoms Assessment Level of Consciousness Alert,Appropriate,Awake Patient Orientation Name,Age Patient Behavior/Mood Cooperative Ability to Follow Directions Excellent Patient Cognition Impaired Yes Affect Description Calm Hallucination Type None Thought Process: Normal Suicidal Ideation None Suicide Plan No Plan Homicidal Ideation None Nausea/Vomiting None 08/02/19 07:57 Nurse Note by Kay Fraire tray provided. Initialized on 08/02/19 07:57 - END OF NOTE VIDEO PRODUCTION SPECIALIST - Pillar Worker Assessment Start: 08/02/19 11:19 Freq: Status: Active Protocol: Document 08/02/19 11:19 BF (Rec: 08/02/19 12:18 BF [id number]) VIDEO PRODUCTION SPECIALIST/Pillar Worker Assessment Start date 08/02/19 Visit Start Time 10:40 Presenting Problem Patient presented to the ED via mother's POV after a [employer] Check was called by pt's EMERY CG due to the pt leaving a disturbing message on her phone regarding suicidal ideation. Pt voluntarily went to ED with her family as she was not feeling that she was safe. Precipitating Event(s) Patient states that she has a long hx of difficult family dynamics that are exacerbated by her TBI and mental health dx. Pt also has not seen her therapist in 2 weeks due to the holidays of and . Pt had cardiac issues in Apr 2017 and her heart stopped and she went without oxygen to her brain for around 10 min and was in a coma for at least 10 days before beginning to recover which caused her anoxic brain injury and need to see her Neurologist Dr. Khalil at [facility] and her yard driver for ongoing care. Current Behavioral Health Provider(s) Sumi Hi ([phone]) Include Facility, Provider, Ph. # mental health theraist 1x week . She is a private practitioner in [place]. Pt had been in her weekly DBT group as well as individual therapy, but found it to be too much to handle due to the cognitive deficits experienced from the anoxic brain injury and stopped the groups. Dr. Fournier, [facility] 1-2x month Dx Major depressive disorder, Generalized anxiety disorder with panic attacks and newer dx of PTSD from her trauma during her anoxic brain injury . Psych. Hx Mental Health and Chemical Pt denies any alcohol or drug Dependency use and UDS is negative accept for Tricyclics from her prescribed medications. Psychiatric Hospitalizations (date(s)/ Pt has a hx of Voluntary Inpt location) MH tx at [facility] in Sep 2018 and states she believes that she went to Voluntary MH tx at [facility] in Apr 2019 after needing to go [facility] ED [facility] times in Apr for stabilization before going to [facility]. Support System(s) Pt states that she has at least 2 very supportive friends that she has reached out to regarding her need for stabilization and feeling unsafe with herself due to suicidal ideation. Pt lives with her mom and sister who she has a challenging family dynamic that is supportive and stressful as she feels my family tries to be understanding but they end up not being helpful. School/Work Denies Legal Matters - Outstanding Issues Denies Orientation (Person/Place/Time) A/O x4. Mood: depressed content/speech: Currently denied AH, but has had them in the past. speech is goal directed. Insight/judgment: fair/good. Behavior: cooperative SI/HI: Pt denied HI, but did not feel she could contract for safety. She did not have a specific plan, but was worried if she oculd remain safe. Affect Affect: appropriate, sad, anxious Thought Content - Specify/Describe Denies current auditory or Obsessions, Delusions, Hallucinations visual disturbances but states she has a recent hx of hearing voices and states she isn't hearing any voices but feels that she has a few different people in her head. When she hears voices she states one sounds like herself and sometimes its more like she has a good side and a bad side. Thought Processes (Uycnmum-Chbvluxm-Pqon Logical Ssrqywcg-Ezscmxmi-Vbxngfycvg- Skhzhrfqbqrzxz-Raawhjy-Jrmlehutnizs- Thought Blocking) Speech (Aopyhq-Gxht-Zpplmid-Rapid-Soft- pt's speech is slow and at Loud-Pressured) times delayed due to cognitive difficulties and takes patient a while to process but is able to answer appropriately and soft spoken. Motor (Aynnwr-Tavvtauau-Aaor-Other) Slow, depressed Insight (Present-Partially Present- Present, does not appear to be Impaired) impaired Judgement (Intact-Impaired) Intact Impulse Control (Adequate-Impaired) Pt states that she does not current trust that she could maintain her own safety in the community and denies homicidal ideation but that she tends to turn her own anger and frustration on herself but cannot say that she would not hurt her family members in this current state of anxiety. Memory (Zfeqomkni-Evxoog-Oscgmd, Somewhat impaired and slow Impaired-Intact) mostly due to anxiety and TBI Behavior (Appropriate-Inappropriate) Somewhat tearful, states she has heart palpitations off and on Suicidal Ideation (Plan) Yes: thoughts of gutting herself, pulling out her insides Homicidal Ideation (Plan) No: But concerned she could hurt family if she's not stabilized Intervention VIDEO PRODUCTION SPECIALIST met bedside with pt in ED room 13 and explained role and pt was able to participate in goal directed discussion and was laying down on the bed wrapped in a blanket and had flat affect with depressed mood and ocassionally tearful. Pt confirms that she continues to have suicidal ideation and also self harm thoughts with a plan and does not feel stable to return to the community and be able to maintain her own safety or that of her family's. Pt feels that her current triggers are that she has not seen her therapist for 2 weeks due to the holiday's and her therapist going on vacation along with her ongoing family psychosocial stressors of her mother's health issues, of her father 10/2018, and her sister staying at their home more often. Pt states she has continued to try to stay in the home with her family but may finally be at a place that she would be willing to attempt Adult Family Home or Assisted Living near her family for a more optimal living situation. VIDEO PRODUCTION SPECIALIST confirmed that pt current has a EMERY CM June Monroy [facility] in [place] and has an assigned EMERY Caregiver. But pt does not feel that she could safely live alone in her own apt with EMERY CG but feels she needs more of a supportive environment that Assisted or Adult Family Home could provide. Pt was agreeable with VIDEO PRODUCTION SPECIALIST calling her mom Frances ) and her Psychiatrist /therapist in case they are working today and not out for the holiday to help with coordination of care. Pt states that she feels that she need stabilization at Inpt MH tx prior to safe return to the community. Pt requesting voluntary placement for mental health. RA Plan Due to pt's ongoing suicidal ideation and self harm plans and inability to confirm that she would not be a harm to others pt could benefit from Voluntary Inpt MH placement for stabilization and coordination of care with her outpt providers. Pt is medically stable and cleared by MD and VIDEO PRODUCTION SPECIALIST to begin bed search for mental health placement prior to return to the community setting.
--- NOTE | 2019-08-02 12:24 | PC.NURSE ---
pt took own meds 1500mg po,potassium chloride 20meq, propanolol 10mg,topamx 25mg, furosemide 40mg, protonix 40mg, iron ,calcium citrate one pill, duloxetine 30mg
--- NOTE | 2019-08-02 13:07 | PC.NURSE ---
Pt was nervious about heart rate. Took BP and came back 133/84 OK 86 O2 97%
[2019-08-02] MEDS: IBUPROFEN 400 MG TABLET PO (15:43)
--- NOTE | 2019-08-02 18:09 | CM.SWNOTE ---
Addendum entered by Nalini Bragg R.N. 08/02/19 21:08: CM/Rn [place] back form [facility]: declined, heard back form [facility]: declined, [facility] has no beds, [facility] does not take insurance, neither does [facility], [facility] has no beds, [facility] has no beds, has no beds, [facility] [phone] is reviewing Clinicals faxed to [phone]. ED board updated and ED staff notified Nalini Bragg RN Original Note: CM/director of career services note: CM/RN called [facility] to discuss possible admission for patient. [facility] stated they are not going to accept patient. CM/RN contacted [facility] in [place] has a bed and they are reviewing for possible admission. CM/RN faxed clinicals for their review to [phone]. Cm/RN will call back in an hour to check if they will accept patient. CM/RN will attempt other placement options as well like [facility] and [facility]. CM/RN called patients EMERY RADHA Monroy [phone] to let her know that patient is currently in the ED and may need help with alternative living arrangements either adult family home or assisted living options. CM/RN left Voice message. Nalini Bragg RN
--- NOTE | 2019-08-02 18:54 | PC.NURSE ---
per LOOM OPERATOR no availability at [facility], veronica is reviewing the chart.
[2019-08-03] VITALS: BP 113/72; PULSE 75; RESP 16; TEMP 36.1; O2SAT 93
[2019-08-03] MEDS: hydrOXYzine pamoate 25 MG CAPSULE PO (00:51)
[2019-08-03] MEDS: levETIRAcetam 250 MG TABLET 1500 MG PO ×3 (00:51→23:26)
[2019-08-03] MEDS: DULOXETINE 30 MG CAPSULE PO ×3 (00:51→23:25)
[2019-08-03] MEDS: LORazepam 0.5 MG TABLET PO (00:52)
--- NOTE | 2019-08-03 00:59 | PC.NURSE ---
Pt yelling help me! help me! - found pt w/ nails scratching into arms. Refused to let go until I pulled hands away from her. Tearful. Took pm meds. Given ativan and hydroxyzine for anxiety / self harm behaviors.
[2019-08-03] MEDS: RISPERIDONE 0.5 MG SL (01:40)
[2019-08-03] MEDS: TOPIRAMATE 25 MG TABLET PO ×3 (01:40→23:24)
[2019-08-03] MEDS: PROPRANOLOL 10 MG TABLET PO ×3 (01:41→23:25)
--- NOTE | 2019-08-03 07:29 | PC.NURSE ---
pt has been refused from [facility]. bridget. pt sleeping at this time, continue with 1:1 observations.
[2019-08-03 08:30] VITALS: BP 106/70; PULSE 75; RESP 16; TEMP 36.3; O2SAT 95
--- NOTE | 2019-08-03 08:38 | PC.NURSE ---
spoke with Anca, she will be making phone calls.
--- NOTE | 2019-08-03 09:17 | CM.SWNOTE ---
Addendum entered by ROGERS Monroe 08/03/19 14:52: ADD: Terri Roberts: Now have no beds [facility]: just found out they are to have construction starting on Thursday and cannot accept any new admits until after construction complete. [facility]: intake Emre states only open bed is in a room with a roommate and they do not feel pt would be a good fit with the roommate, but have discharges for tomorrow and if placement still needed tomorrow they can re-review to determine if they have a private room and if they could accept. Per RN, pt was able to get up and shower, brush teeth, eat and is stating she is feeling more stable and if Inpt tx not found then likely safe for plan of home. SW met bedside with pt and pt visibly calm and cooperative and not displaying symptoms of anxiety from yesterday. Pt confirms that she feels more stable and has been taking her home meds. SW updated pt on the lack of Inpt beds or accepting facilities and began discussing possible option for home. Pt has next appointment with therapist on 08/09/19 and Psychiatrist on 08/25/19 and pt agreeable with calling both tomorrow to determine if she could get in sooner or at least a checkin via phone. SW discussed [facility] ([facility] crisis outreach team) and pt states she feels that could be a helpful resource if she was at home and started to decline in behaviors. Pt denying any current suicidal ideation or plan or self harm and feels she could be safe for the community and would have her EMERY CG for her regular days of tomorr and Thursday. SW inquired if pt was agreeable with SW updated her mom and getting mom on the phone to discuss plan of d/c to home as Inpt MH placement has not been found. Pt agreeable to including her mom in planning. SW called mom Yeseldah and spoke with her and pt's sister via speaker phone and updated on above and mother seemed very frustrated and angry that Inpt Tx not secured and continued to discuss her frustrations with pt's ongoing lack of consistent med compliance, need for better facing cutting machine operator care, lack of personal hygiene and EMERY CG not able to get pt to follow through on ADL's. SW reiterated over and over that they would likely need to call pt's EMERY CM and clearly state that LTC needs to be found as living in mother's home is not safe or an option at this time but that LTC placement can take days to weeks to secure and encouraged family to look up the [facility] and [facility] and being calling to determine if any have an opening and then notify EMERY CM. SW stated that LTC placement needs to happen through EMERY and outpt providers and that pt now medically stable and suicidal ideation and anxiety are now currently stable. SW discussed need to create a reasonable safety plan for the community while LTC placement is being worked on that may not be ideal but where they could manage while facing cutting machine operator plans put in place. SW provided resource information for LTC options, Guardianship process as family inquired, EMERY process for senior living care, etc. Family continued to be very frustrated with the facing cutting machine operator issues they have been dealing with for the pt and state that they do not feel comfortable with the pt coming home at this time. SW reiterated that pt's Accredited Pharmacy Technician Placement cannot be solved at this time from the hospital and need for family to urgently call EMERY CM but that ongoing safety planning for the community could happen while LTC is in the works. PRETTY updated RN, installer molding and trim, and MD that family currently refusing to take pt home at this time and RN will call pt's mother to discuss family coming in to visit to see that pt is currently stable to determine if APS needs to be called to inquire if Inpt MH placement not found and family refuses pt to come home would it be deemed APS reportable. PRETTY left [facility] for CM Facing Cutting Machine Operator Slime to determine if pt still remains in the hospital possible need for Risk or Administration to become involved. ROGERS Monroe Original Note: Ongoing Inpt MH tx placement: Per notes from yesterday and RN today these facilities were either full or declined pt: [facility]: declined [facility]: declined [facility]: declined [facility]: doesn't take pt's insurance [facility]: doesn't take insurance [facility]: Full this morning still [facility]: willing to review this morning and PRETTY faxed clinicals to [phone] [facility]: has an opening and willing to review this morning, faxed clinicals to [phone]. [facility]: Left msg [facility]: has an open bed with a roommate but may need to do room changes with current pts so they will call back later this morning to confirm if they have an opening. Plan: to follow for [facility] to review to determine if they can accept and continue with looking for a mental health bed this morning prior to further discussion with pt to determine if she is more stable now for d/c back home with [facility] housing to begin to reduce her risk of life stressors at home. ROGERS Monroe
--- NOTE | 2019-08-03 10:08 | PC.NURSE ---
at 0945, pt was laying quietly and resting, not crying, charted incorrectly. Pt offered shower earlier, states has phobia of getting out of her clothes. she will try, will check back later.
--- NOTE | 2019-08-03 10:12 | PC.NURSE ---
denies feeling or thoughts of suicidal.
--- NOTE | 2019-08-03 10:14 | PC.NURSE ---
called pharmacy regarding pts medication. she will send it shahrzad.
[2019-08-03] MEDS: CALCIUM CITRATE 200 MG TABLET PO (10:32)
[2019-08-03] MEDS: risperiDONE 0.25 MG TABLET 0.5 MG PO (10:33)
[2019-08-03] MEDS: SUCRALFATE 1 GM TABLET PO ×2 (10:33→23:45)
[2019-08-03] MEDS: ASCORBIC ACID 500 MG TABLET PO (10:35)
[2019-08-03] MEDS: CHOLECALCIFEROL (VITAMIN D3) 1,000 UNIT TABLET 1000 UNIT PO (10:35)
[2019-08-03] MEDS: FERROUS SULFATE 325 MG TABLET PO (10:35)
[2019-08-03] MEDS: raNITIdine 150 MG CAPSULE PO (10:36)
[2019-08-03] MEDS: PANTOPRAZOLE 20 MG TABLET 40 MG PO (10:36)
--- NOTE | 2019-08-03 10:48 | PC.NURSE ---
states, takes risperidone 0.5 po at night 2100 ranitidine 150mg sucralfate 1 gram
--- NOTE | 2019-08-03 10:50 | PC.NURSE ---
meds stored in med room
[2019-08-03] MEDS: LORazepam 0.5 MG TABLET 0.25 MG PO (12:13)
--- NOTE | 2019-08-03 12:22 | PC.NURSE ---
pt offered shower this AM, requested to time it for 1100. At 1100, pt agreed to shower. She was able to shower independently with RN in room for safety monitoring. BSC in shower for sitting as needed. Pt brushed her teeth and blood came from gums, per pt this is normal. She states she doesn't normally brush her teeth. Pt able to ambulate with 4WW to and from bathroom. Linens changed and pt combed hair. When back in bed she states that she is feeling like herself again and wondering if she should just go home. notified ROBBIE Villanueva who recommended we contact Anca. Left message for Anca to f/u.
[2019-08-03 13:42] VITALS: BP 112/66; PULSE 77; RESP 16; TEMP 36.6; O2SAT 96
--- NOTE | 2019-08-03 13:43 | PC.NURSE ---
also recieved a call from Mother, with pts authorization to speak with family. Mother states, she is usually better when she takes her medication, mother is inquiring if she can visits. pt was ok with that.
--- NOTE | 2019-08-03 15:40 | PC.NURSE ---
called mother, given the update, that she can visit pt. mother is concerned that if she came and visit , that she will be forced to take pt home. mother states, Its her birthday and [place]. [place]a [id number]
[2019-08-03 19:07] VITALS: BP 117/72; PULSE 89; RESP 18; TEMP 36.5; O2SAT 96
[2019-08-03] MEDS: IBUPROFEN 400 MG TABLET 800 MG PO (19:51)
[2019-08-03 22:15] VITALS: BP 127/86; PULSE 75; RESP 18; TEMP 36.5
--- NOTE | 2019-08-03 23:30 | PC.NURSE ---
nurse passing meds patient sitting up in bed calm writing in journal
[2019-08-03] MEDS: BACITRACIN OINT 0.9 GM PCKT 1 APPLIC TOP (23:31)
[2019-08-04 00:41] VITALS: BP 111/57; PULSE 86; RESP 15; TEMP 36.6
[2019-08-04 09:02] VITALS: BP 107/67; PULSE 80; RESP 14; TEMP 36.2; O2SAT 95
[2019-08-04] MEDS: SUCRALFATE 1 GM TABLET PO (09:15)
[2019-08-04] MEDS: ASCORBIC ACID 500 MG TABLET PO (09:15)
[2019-08-04] MEDS: FERROUS SULFATE 325 MG TABLET PO (09:16)
[2019-08-04] MEDS: CHOLECALCIFEROL (VITAMIN D3) 1,000 UNIT TABLET 1000 UNIT PO (09:16)
[2019-08-04] MEDS: levETIRAcetam 250 MG TABLET 1500 MG PO (09:16)
[2019-08-04] MEDS: CALCIUM CITRATE 200 MG TABLET PO (09:16)
[2019-08-04] MEDS: PANTOPRAZOLE 20 MG TABLET 40 MG PO (09:17)
[2019-08-04] MEDS: TOPIRAMATE 25 MG TABLET PO (09:18)
[2019-08-04] MEDS: PROPRANOLOL 10 MG TABLET PO (09:18)
[2019-08-04] MEDS: raNITIdine 150 MG CAPSULE PO (09:18)
--- NOTE | 2019-08-04 09:22 | PC.NURSE ---
recieved a from Amara. adviced for dr Anderson to call Dr Fournier , provider aware.
--- NOTE | 2019-08-04 09:27 | PC.NURSE ---
Per dr Anderson, Dr Fournier will see pt here.
[2019-08-04] MEDS: DULOXETINE 30 MG CAPSULE PO (09:38)
--- NOTE | 2019-08-04 09:41 | PC.NURSE ---
Addendum entered by Tiffanie Moe R.N. 08/04/19 15:17: Patient has been discharged, patient and belongings moved to room 3D to await ride. Addendum entered by Tiffanie Moe R.N. 08/04/19 13:20: Patient up to restroom, changed into personal clothes for d/c. Belongings returned to patient, patient sitting up in bed waiting from family. Will continue to monitor. Addendum entered by Tiffanie Moe R.N. 08/04/19 10:05: Addendum entered by Tiffanie Moe R.N. 08/04/19 09:50: Dr in to speak to patient, told she will be going home with family. Patient is calm and receptive. Patient requests to hold her risperidone 0.5mg until this evening when she normally takes it. Patient denies further needs at this time. Original Note: Patient resting quietly in bed. Ambulated with SBA and FWW walker to restroom, patient is calm and quiet at this time. Patient brushed teeth, bleeding gums noted. Upon returning to bed patient requests that this RN call her mother to bring in her pacemaker recording device. Mother contacted. Patient ate 100% of breakfast, offered water, preferred the soy milk that came on breakfast tray. Administered PO morning medications, patient denied pain, dizziness, shortness of breath or suicidal ideation at this time. Patient is sitting up in bed, writing in journal at this time. Will continue to monitor.
--- NOTE | 2019-08-04 10:10 | PC.NURSE ---
pt has appt with Dr Fournier in 2 weeks.
[2019-08-04] MEDS: LORazepam 0.5 MG TABLET 0.25 MG PO (10:14)
[2019-08-04] MEDS: MAGNESIUM OXIDE 400 MG TABLET PO (10:15)
--- NOTE | 2019-08-04 11:40 | PC.NURSE ---
Pt. is sleeping.
--- NOTE | 2019-08-04 11:50 | PC.NURSE ---
pt. is sleeping.
--- NOTE | 2019-08-04 14:24 | PC.NURSE ---
called mother, left message on the cell phone.
--- NOTE | 2019-08-04 14:36 | PC.NURSE ---
called mother home number, no answer, left message.
--- NOTE | 2019-08-04 14:47 | PC.NURSE ---
updated, Amara MCCLOUD, pt officially dc, no need for sitter.
[2019-08-04 14:54] VITALS: BP 114/75; PULSE 77; RESP 14; TEMP 36.1; O2SAT 98
--- NOTE | 2019-08-04 15:15 | PC.NURSE ---
pt states, mother is finishing up with her appt and she is on her way, to hop picker pt.
--- NOTE | 2019-08-04 15:24 | PC.NURSE ---
, mother reassured, social work instructor wants to talk with them before leaving, agreed to meet with Myke
--- NOTE | 2019-08-04 16:07 | CM.SWNOTE ---
HIGH SCHOOL ART TEACHER Note: Reviewed chart this morning. Attempted again- Inpt MH units [facility], both declined Consuelo. [facility] does not take folks w/ TBI and has no Vol beds. Spent the rest of the day working on safety planning for Consuelo's return home. Per nursing staff and Dr Aliza Anderson, Consuelo feeling confident about her return home w/family today. Dr Anderson requested that Dr Fournier meet w/Consuelo in ER and he was able to visit and clear Consuelo for return home w/ f/u in his office 08.25.19 Then placed call to Consuelo's mom and had lengthy conversation, much like the conversation facilitated by ROGERS March on 08.03.19, see note for detail. Frances threatened not to pick Consuelo up to take her home until there had been a plan secured for Consuelo's MH placement and/or group home care placement. Frances explained to this HIGH SCHOOL ART TEACHER she was overwhelmed and burnt out, stating she didn't always feel safe in her home w/ Consuelo in it and she was a trigger to many of Consuelo's angry and suicidal/homicidal outbursts. Frances stated I don't want Consuelo to be homeless but I don't know what to do anymore. She won't take her meds, she won't shower and she won't listen to me. This HIGH SCHOOL ART TEACHER explained the following to mom Frances: -Consuelo arrived to the ED in acute MH crisis asking to be placed voluntarily in a MH inpt unit, unfortunately all placement efforts have been exhausted and none secured, Consuelo has been stabilized, denying current SI/HI and will be DC home w/close outpt f/u today -Consuelo has a TBI w/significant psychiatric history, she uses a walker and cannot safely live alone, she has been living w/mom and family w/ cg assist and this HIGH SCHOOL ART TEACHER would need to call APS w/a suspected abandonment case if Frances refuses to allow Consuelo back into her home, emergency placement (?) vs assisted options would be discussed w/ APS and w/ EMERY RADHA Monroy -This HIGH SCHOOL ART TEACHER relays support to mom Frances for all her efforts made to keep Consuelo and the rest of the family safe, Frances admits she asked EMERY [employer] [facility] Specialist in Sep about terminal press operator care placement but never heard back (?) and that Consuelo does beautifully when on her meds but fights w/mom about taking them, also does not like to shower or brush teeth -This HIGH SCHOOL ART TEACHER reiterates that leaving Consuelo in the ER so that things can be figured out for good is not productive or appropriate. [facility] is not an appropriate facility for Consuelo to remain indefinitely. This HIGH SCHOOL ART TEACHER will connect w/ EMERY GARCIA to learn more about LTC options. Inevitably, mom agreeable to picking Consuelo up this afternoon. Placed call to EMERY Mcdaniel [phone] who explained she had been gone and just returned and received hand off from her uranium processing supervisor. Consuelo recently had her annual assessment of hours and her hours had increased by 30. Consuelo is considered a decisional adult and option for AFH/GROUP HOME had been reviewed w/her in July and she declined stating she wished to remain home. Meeta encouraged Consuelo to call her to discuss terminal press operator care options again but it was likely going to be a lengthy process. Relayed this information to both Consuelo and her mom in the ED this afternoon. Consuelo remained hesitant about leaving her home but agreed it was not working well at home w/mom and she understood she struggled w/continued crisis sec to conflict w/her mother. Consuelo felt she could safely go home w/her mother w/ f/u scheduled w/ Dr Fournier. This HIGH SCHOOL ART TEACHER strongly encouraged Consuelo to consider terminal press operator care options/structured environment. Then provided number for [facility] for crisis response and stabilization at home. Mom Frances asking questions: who can I contact to talk about the legal matters of this? and asking this HIGH SCHOOL ART TEACHER who do you report to? also asking if nothing could be found today what does this mean for Consuelo's health? This HIGH SCHOOL ART TEACHER unable to answer all of mom's questions, relayed mom's concerns to nurse Villanueva who was planning to review DC instructions next. Dr Anderson updated and DC order in place for home. ROGERS Scott
== END 2019-08-04 16:07 | disposition home or self-care (01) ==
PROVIDERS: Emergency Medicine; Emergency Provider Emergency Medicine; Family Provider Obstetrics & Gynecology; PCP Obstetrics & Gynecology
DX: F32.9 Major depressive disorder, single episode, unspecified (principal); R45.851 Suicidal ideations
CPT/HCPCS: 36415; 80053; 80305; 80320; 81003; 81025; 82962; 84443; 85025; 93005; 99284

== ENCOUNTER → 2019-09-15 13:17 | Outpatient (CLI) | payer OTHER, MEDICAID, SELFPAY ==
[2019-09-15 14:50] LABS: BUN Creatinine Ratio 12.5 (6-22); Blood Urea Nitrogen 10 mg/dL (7-17); Carbon Dioxide 26 mmol/L (22-32); Chloride 106 mmol/L (98-107); Estimated Glomerular Filt Rate > 60.0 mL/min (>60); Glucose 95 mg/dL (70-100); HEMOLYSIS < 15 (0-50); Magnesium 2.1 mg/dL (1.6-2.3); Potassium 4.4 mmol/L (3.4-5.1); Sodium 142 mmol/L (137-145)
[2019-09-15 16:28] LABS: Follicle Stimulating Hormone 6.91 mIU/mL
== END ==
PROVIDERS: Family Provider Obstetrics & Gynecology; PCP Obstetrics & Gynecology; Referring Provider Hospitalist; Visit Provider Hospitalist
DX: I45.81 Long QT syndrome (principal); R45.86 Emotional lability
CPT/HCPCS: 36415; 80048; 83001; 83735

== ENCOUNTER → 2019-12-06 11:54 | Outpatient (CLI) | payer MEDICARE, MEDICAID, SELFPAY | PROVIDERS: Family Provider Obstetrics & Gynecology; PCP Obstetrics & Gynecology; Referring Provider Podiatrist; Visit Provider Family Medicine | DX: L97.211 Non-pressure chronic ulcer of right calf limited to breakdown of skin (principal); I87.2 Venous insufficiency (chronic) (peripheral); R60.0 Localized edema; E66.01 Morbid (severe) obesity due to excess calories; Z68.42 Body mass index [BMI] 45.0-49.9, adult | CPT/HCPCS: 97597; 99214 ==

== ENCOUNTER → 2019-12-08 12:04 | Outpatient (CLI) | payer MEDICARE, MEDICAID, SELFPAY | PROVIDERS: Family Provider Obstetrics & Gynecology; PCP Obstetrics & Gynecology; Referring Provider Podiatrist; Visit Provider Family Medicine | DX: I87.2 Venous insufficiency (chronic) (peripheral) (principal); L97.811 Non-pressure chronic ulcer of other part of right lower leg limited to breakdown of skin; R60.0 Localized edema | CPT/HCPCS: 29581 ==

== ENCOUNTER → 2019-12-12 15:22 | Outpatient (CLI) | payer MEDICARE, MEDICAID, SELFPAY | PROVIDERS: Family Provider Obstetrics & Gynecology; PCP Obstetrics & Gynecology; Referring Provider Obstetrics & Gynecology; Visit Provider Family Medicine | DX: I87.2 Venous insufficiency (chronic) (peripheral) (principal); L97.811 Non-pressure chronic ulcer of other part of right lower leg limited to breakdown of skin; R60.0 Localized edema | CPT/HCPCS: 97597 ==

== ENCOUNTER → 2019-12-19 14:59 | Outpatient (CLI) | payer MEDICARE, MEDICAID, SELFPAY | PROVIDERS: Family Provider Obstetrics & Gynecology; PCP Obstetrics & Gynecology; Referring Provider Podiatrist; Visit Provider Family Medicine | DX: I87.2 Venous insufficiency (chronic) (peripheral) (principal); I89.0 Lymphedema, not elsewhere classified; F42.4 Excoriation (skin-picking) disorder | CPT/HCPCS: 99213; 99214 ==

== ENCOUNTER → 2020-01-11 13:40 | Outpatient (CLI) | payer MEDICARE, MEDICAID, SELFPAY ==
[2020-01-11 15:11] LABS: Alanine Aminotransferase 30 IU/L (<35); Albumin 4.7 g/dL (3.5-5.0); Albumin Globulin Ratio 1.6 (1.0-2.8); Alkaline Phosphatase 85 U/L (38-126); Aspartate Aminotransferase 37 IU/L (14-36); BUN Creatinine Ratio 14.3 (6-22); Bilirubin Total 0.7 mg/dL (0.2-1.3); Blood Urea Nitrogen 12 mg/dL (7-17); Calcium 9.9 mg/dL (8.4-10.2); Carbon Dioxide 22 mmol/L (22-32); Chloride 108 mmol/L (98-107); Estimated Glomerular Filt Rate > 60.0 mL/min (>60); Globulin 2.9 g/dL (1.7-4.1); Glucose 103 mg/dL (70-100); HEMOLYSIS < 15 (0-50); Sodium 140 mmol/L (137-145); Total Protein 7.6 g/dL (6.3-8.2)
== END ==
PROVIDERS: Family Provider Obstetrics & Gynecology; PCP Obstetrics & Gynecology; Referring Provider Hospitalist; Visit Provider Hospitalist
DX: Z51.81 Encounter for therapeutic drug level monitoring (principal); Z79.899 Other long term (current) drug therapy
CPT/HCPCS: 36415; 80053

== ENCOUNTER → 2023-09-15 14:07 | Outpatient (CLI) | payer MEDICARE, MEDICAID, SELFPAY ==
--- NOTE | 2023-09-15 14:10 | DI.ECHO.S_ITS ---
[facility]+ [facility] +---------+ : : [address] : : : : [id number] : : : : Phone: [phone]+ Echocardiogram Report + + :Name: MICHAEL DRAPER Study Date: 09/15/2023 Height: 72 in : :[facility] ReadingLocation: Weight: 321 lb : : Gender: Female BSA: 2.6 m2 : :: 1985 Age: 38 yrs BP: 124/80 mmHg: :Reason For Study: DYSPNEA : :Ordering Physician: Steve MASONformed By: Janelle Noble : :Referring: REBECA MASON : + + Interpretation Summary The ejection fraction is estimated to be 60-65%. Diastolic parameters suggest probable normal left ventricular diastolic function and normal filling pressures. The right ventricle is normal in size and function. No significant valvular abnormalities. Pulmonary artery pressures cannot be estimated because of the lack of a measurable TR jet velocity but the IVC suggests a CVP of around 3 mmHg. Compared to the prior study dated 06/13/2022, no significant change. Procedure: A two-dimensional transthoracic echocardiogram with color flow and Doppler was performed. The study quality was technically difficult. Comparison is made with the echocardiogram of 04/05/2017. The patient was in sinus rhythm with heart rates between 59-73 bpm during the exam. Left Ventricle: The left ventricle is normal in size and wall thickness. The ejection fraction is estimated to be 60-65%. Diastolic parameters suggest probable normal left ventricular diastolic function and normal filling pressures. Right Ventricle: There is a pacemaker lead in the right ventricle. The right ventricle is normal in size and function. Atria: The left atrial size is normal. Right atrial size is normal. There is no Doppler evidence for an interatrial shunt. Mitral Valve: The mitral valve is normal in structure and function. There is no mitral regurgitation noted. Aortic Valve: The aortic valve is not well visualized. The aortic valve is grossly normal. There is no aortic valve stenosis. No aortic regurgitation is present. Tricuspid Valve: The tricuspid valve is normal in structure and function. No tricuspid regurgitation. Pulmonary artery pressures cannot be estimated because of the lack of a measurable TR jet velocity but the IVC suggests a CVP of around 3 mmHg. Pulmonic Valve: The pulmonic valve is not well visualized. There is a trace or physiologic amount of pulmonic regurgitation. Great Vessels: The aortic root is normal size. The dimensions of the ascending aorta are normal. The IVC is of normal diameter and collapses greater than 50% with a sniff. This suggests a low right atrial pressure of 3 mm Hg. Pericardium/ Pleura There is no pericardial effusion. There is no pleural effusion. MMode/2D Measurements & Calculations LVIDd: 5.4 cm LVOT diam: 2.1 cm LVIDs: 3.3 cm Ao root diam: 3.0 cm FS: 39.1 % asc Aorta Diam: 2.7 cm IVSd: 0.94 cm Ao Arch Diam (Prox Trans): 2.5 cm LVPWd: 0.86 cm LV mederos. diameter/BSA (cm/m^2): 2.1 LV sys. diameter/BSA (cm/m^2): 1.3 LA A2 area: 17.7 cm2 RA long axis: 5.0 cm LA A4 area: 15.0 cm2 RA area: 13.8 cm2 LA length (vol): 5.0 cm RA vol: 32.1 ml LA vol: 44.7 ml RA : 12.3 ml/m2 LA vol index: 17.2 ml/m2 IVC diam: 1.7 cm RVD1 (basal): 3.4 cm TAPSE: 2.0 cm Doppler Measurements & Calculations Ao V2 max: 126.7 cm/sec LVOT Max Ivan: 95.1 cm/sec Ao V2 mean: 97.3 cm/sec LV V1 max P.6 mmHg Ao max P.4 mmHg LV V1 VTI: 22.2 cm Ao mean P.1 mmHg YAMILA(I,D): 2.8 cm2 Ao V2 VTI: 27.8 cm YAMILA(V,D): 2.6 cm2 sev ratio: 0.80 YAMILA indexed to BSA (cm^2/m^2): 1.1 MV E max ivan: 86.1 cm/sec PA V2 max: 102.6 cm/sec MV A max ivan: 54.1 cm/sec PA V2 mean: 69.2 cm/sec MV E/A: 1.6 PA mean P.1 mmHg Med Peak E' Ivan: 8.8 cm/sec PA pr(Accel): 29.3 mmHg E/E' med: 9.8 Lat Peak E' Ivan: 12.2 cm/sec E/E' lat: 7.1 E/e' average: 8.4 MV dec time: 0.15 sec SV(LVOT): 77.4 ml Reading Physician:04:59 PM
== END ==
PROVIDERS: Family Provider Obstetrics & Gynecology; PCP Obstetrics & Gynecology; Referring Provider Internal Medicine Cardiovascular Disease; Visit Provider Internal Medicine Cardiovascular Disease
DX: R06.09 Other forms of dyspnea (principal); Z95.0 Presence of cardiac pacemaker
CPT/HCPCS: 93306

== ENCOUNTER → 2024-01-01 15:13 | Outpatient (CLI) | payer MEDICARE, MEDICAID, SELFPAY ==
--- NOTE | 2024-01-01 22:26 | DI.NM.S_ITS ---
DATE OF SERVICE: 01/01/2024 PROCEDURE: Exercise treadmill stress testing without imaging. ORDERING PROVIDER: PAOLA Dickinson INDICATIONS: The patient is a 38-year-old morbidly obese female with triple X syndrome and a history of sudden cardiac with anoxic brain injury, status post ICD implantation with a history of recurrent shocks treated with amiodarone and mexiletine, who now presents with exertional dyspnea. FINDINGS: 1. The patient was able to exercise for only 1 minute 43 seconds on a standard Rodolfo protocol suggesting markedly reduced exercise capacity with an SATHISH of +77%, achieving only 2.1 METS. 2. She had a blunted heart rate response, with a resting heart rate of 79 BPM increasing to a maximum of 115 BPM (64% of her predicted maximum). A blood pressure response was unable to be assessed because of the brevity of her exercise. Her oxygen saturation at peak exercise remained normal at 93%. 3. She denied any chest discomfort or anginal symptoms. 4. Her resting ECG showed sinus rhythm with a borderline intraventricular conduction delay but fairly normal ST segments. There were no obvious ST-segment shifts or arrhythmias although there was considerable motion artifact. IMPRESSION: 1. Nondiagnostic exercise treadmill stress test for ischemia because of a significantly blunted heart rate response but without obvious evidence for ischemia. If there is significant clinical concern for underlying ischemic heart disease, consider a pharmacologic imaging study. 2. Markedly reduced exercise capacity without angina or arrhythmias. Yao, Consuelo - RS/chucky/GA doc#: [id number]/job#: [id number] dd: 01/01/2024 16:40:00 dt: 01/01/2024 21:50:00 DICTATING MD/COPIES TO: Jose Madrid MD; Carlene Sanz M.D. COPIES MNE: SWATI;
== END ==
PROVIDERS: Family Provider Obstetrics & Gynecology; PCP Obstetrics & Gynecology; Referring Provider Nurse Practitioner Family; Visit Provider Nurse Practitioner Family
DX: R06.09 Other forms of dyspnea (principal); Q97.0 Karyotype 47, XXX; G93.1 Anoxic brain damage, not elsewhere classified; I49.01 Ventricular fibrillation; E66.01 Morbid (severe) obesity due to excess calories; Z68.41 Body mass index [BMI] 40.0-44.9, adult; Z95.810 Presence of automatic (implantable) cardiac defibrillator; Z86.74 Personal history of sudden cardiac arrest
CPT/HCPCS: 93017

== ENCOUNTER 2025-05-09 05:25 | Emergency (ER) | payer MEDICARE, MEDICAID, SELFPAY ==
[2025-05-09] VITALS (21 sets, daily range): BP systolic 103–136; BP diastolic 53–82; PULSE 63–101; RESP 16–38; TEMP 37.1; O2SAT 96–100; BMI 45.3
--- NOTE | 2025-05-09 05:27 | ED.GENADULT ---
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 BIBA after near syncopal episode, recalls the event, had gone to the bathroom, was standing at the sink washing her hands when she felt like she might pass out, did not have sensation of fast heart racing, defibrillator did not seem to shock her, was not having chest or back or abdominal or head or neck pain. She was listed herself to the ground, called her mother who lives in the same household via cell phone, and crawl to an adjacent room. Mother called 911. Patient never lost consciousness. She had generalized weakness that persisted, unable to get herself up to any chair or couch, found lying on the floor by EMS. Morley better during transport by EMS. Denies headache, photophobia, neck pain. Denies shakiness or seizure-like activity. Denies incontinence urine or stool. Does admit to recent left-sided lower dental infection awaiting tooth extraction, taking oral Augmentin for the last couple of weeks, with loose nonbloody stools for the last 3-4 days. Also has had recent one-week duration of dry cough, mother in same household with recent upper respiratory infection symptoms as well. Related Data Home Medications ?Medication ?Instructions ?Recorded ?Confirmed levonorgestrel (Mirena) 1 ea intrauterine DIRECTED 02/16/18 08/25/23 topiramate 25 mg tablet (Topamax) 25 mg PO BID 03/16/18 08/25/23 magnesium oxide 500 mg PO BID 09/21/18 08/25/23 pantoprazole 40 mg tablet,delayed 40 mg PO DAILY #30 tabs 12/03/18 08/25/23 release acetaminophen 500 mg tablet 500 mg PO Q6H PRN 02/29/20 08/25/23 (Tylenol Extra Strength) potassium chloride 20 mEq 20 meq PO BID 04/06/20 08/25/23 tablet,extended release(part/cryst) propranolol 120 mg capsule,24 120 mg PO BID 04/06/20 08/25/23 hr,extended release levetiracetam 750 mg tablet 1,500 mg PO BID 03/01/21 08/25/23 mexiletine 150 mg capsule 300 mg PO .COMPLEX 07/02/21 08/25/23 norethindrone (contraceptive) 0.35 0.35 mg PO DAILY 07/02/21 08/25/23 mg tablet amiodarone 200 mg tablet 200 mg PO DAILY 11/20/21 08/25/23 cholecalciferol (vitamin D3) 25 2,000 unit PO BID 11/20/21 08/25/23 mcg (1,000 unit) capsule cyanocobalamin (vitamin B-12) 1,000 mcg PO DAILY 11/20/21 08/25/23 1,000 mcg capsule lamotrigine 150 mg tablet 150 mg PO BID 11/20/21 08/25/23 lamotrigine 25 mg tablet 25 mg PO BID 11/20/21 08/25/23 vitamin B complex 1 ea PO DAILY 11/20/21 08/25/23 coenzyme Q10 100 mg capsule (Co 200 mg PO BID 12/27/21 08/25/23 Q-10) benzonatate 200 mg capsule 200 mg PO TID PRN 02/19/22 08/25/23 calcium 200 mg (as 2 tab PO QPM 02/19/22 08/25/23 citrate)-vitamin D3 3.125 mcg (125 unit) tablet calcium carbonate (Tums) 200 mg PO QID PRN 11/19/22 08/25/23 clotrimazole 1 % topical cream 1 applic topical TID PRN 11/19/22 08/25/23 simethicone 125 mg chewable tablet 125 mg PO BID-QID PRN 11/19/22 08/25/23 (Gas-X Extra Strength) ubrogepant 50 mg tablet (Ubrelvy) 50 mg PO DAILY PRN 11/19/22 08/25/23 norelgestromin 150 mcg-e.estradiol 1 patch transdermal Q7D 08/25/23 08/25/23 35 mcg/24 hr weekly transderm patch (Zafemy) rosuvastatin 20 mg tablet 20 mg PO DAILY 02/02/24 02/02/24 Previous Rx's ?Medication ?Instructions ?Recorded mirtazapine 15 mg tablet 7.5 mg (1/2 x 15 mg) PO BEDTIME 08/25/23 #30 tabs aripiprazole 2 mg tablet 2 mg PO DAILY #30 tabs 11/07/24 duloxetine 30 mg capsule,delayed 30 mg PO BID #180 caps 12/13/24 release lorazepam 0.5 mg tablet 0.5 mg PO BID #60 tabs 12/13/24 azithromycin 250 mg tablet 250 mg PO DAILY 4 days #4 tabs 05/09/25 Allergies Allergy/AdvReac Type Severity Reaction Status Date / Time lactose Allergy Verified 05/09/25 05:49 bupropion (From Wellbutrin) AdvReac Intermediate hallucinati Verified 05/09/25 05:49 ons lithium AdvReac Intermediate psychosis, Verified 05/09/25 05:49 nausea pseudoephedrine AdvReac Intermediate heart Verified 05/09/25 05:49 (PSEUDOEPHEDRINE) palpatations risperidone AdvReac Intermediate prolonged Verified 05/09/25 05:49 QT, pt has pacemaker Sulfa (Sulfonamide AdvReac Mild HALLUCINATI Verified 05/09/25 05:49 Antibiotics) ONS buspirone AdvReac leg Verified 05/09/25 05:49 tremors, increased anxiety Patient History <Avila Kamara MD - Last Filed: 05/10/25 02:38> Medical History (Updated 05/09/25 @ 12:29 by Yoni Nolasco DO) Triple X syndrome, female History of anoxic brain injury Suicidal ideation Depression Anxiety Major depressive disorder, recurrent episode, severe with anxious distress Generalized anxiety disorder with panic attacks Prolonged QT syndrome Pacemaker Obesity (BMI 30-39.9) Trichotillomania Surgical History (System 02/01/25 @ 14:17 by Zainab Henderson) No pertinent past surgical history Social History (System 02/01/25 @ 14:17 by Zainab Henderson) Smoking Status: Never smoker alcohol intake frequency: 0-2 drinks per day Exam <Avila Kamara MD - Last Filed: 05/10/25 02:38> Narrative Exam Narrative: GENERAL: Well-developed patient, in mild distress. Obesity noted, BMI 45. HEAD: Atraumatic. Normocephalic. EYES: Pupils equal round and reactive. Extraocular motions intact. No scleral icterus. No injection or drainage. ENT: Nose without bleeding, purulent drainage. Throat without erythema, tonsillar hypertrophy or exudate. Airway patent. Oropharynx with a poor dentition, left lower molar decay, no significant gingival adjacent swelling or buccal cheek swelling. NECK: Trachea midline. No cervical lymphadenopathy, moves neck well. CARDIOVASCULAR: Regular rate and rhythm without murmurs, gallops, or rubs. RESPIRATORY: Clear to auscultation. Breath sounds equal bilaterally. No wheezes, rales, or rhonchi. Left upper anterior chest AICD site well healed, no redness or swelling. GASTROINTESTINAL: Abdomen soft, non-tender, nondistended. EXTREMITIES: No edema or joint tenderness. BACK: Nontender without deformity or crepitance. No flank tenderness. NEURO: AOx3. Motor functions grossly nonfocal. SKIN: No rash or erythema of visible areas Initial Vital Signs Initial Vital Signs: Vital Signs Pulse Rate 71 05/09/25 05:28 Pulse Oximetry 98 05/09/25 05:28 <Yoni Nolasco DO - Last Filed: 05/09/25 12:30> Initial Vital Signs Initial Vital Signs: Vital Signs Pulse Rate 71 05/09/25 05:28 Pulse Oximetry 98 05/09/25 05:28 Course <Avila Kamara MD - Last Filed: 05/10/25 02:38> Orders Ordered: Discontinued Medications Ceftriaxone Sodium 1,000 mg/ (Sodium Chloride) 100 mls @ 200 mls/hr IV NOW ONE Stop: 05/09/25 09:31 Last Infusion: 05/09/25 10:29 Dose: Infused Documented By: Admin: 05/09/25 09:38 Dose: 200 mls/hr Documented By: CHERYLE Azithromycin 500 mg/ Dextrose 250 mls @ 250 mls/hr IV NOW ONE Stop: 05/09/25 09:31 Last Infusion: 05/09/25 12:24 Dose: Infused Documented By: Infusion: 05/09/25 12:20 Dose: 0 mls/hr Documented By: Infusion: 05/09/25 11:51 Dose: 0 mls/hr Documented By: Admin: 05/09/25 10:57 Dose: 250 mls/hr Documented By: EB Vital Signs Vital signs: Vital Signs - 8 hr 05/09/25 05:28 05/09/25 05:29 05/09/25 05:29 Temperature Pulse Rate 71 69 Respiratory Rate Blood Pressure 136/82 Pulse Oximetry 98 97 Oxygen Delivery Method 05/09/25 05:30 05/09/25 05:40 05/09/25 06:17 Temperature 98.8 F Pulse Rate 68 69 101 H Respiratory Rate 16 38 H Blood Pressure 136/82 Pulse Oximetry 96 97 Oxygen Delivery Method Room Air 05/09/25 06:30 05/09/25 07:00 05/09/25 07:26 Temperature Pulse Rate 64 64 72 Respiratory Rate 24 25 H 21 Blood Pressure Pulse Oximetry 98 Oxygen Delivery Method 05/09/25 07:26 05/09/25 07:30 05/09/25 07:30 Temperature Pulse Rate 64 Respiratory Rate 17 Blood Pressure 115/57 L 110/53 L Pulse Oximetry 99 Oxygen Delivery Method 05/09/25 08:00 05/09/25 08:00 05/09/25 08:30 Temperature Pulse Rate 67 Respiratory Rate 20 Blood Pressure 113/56 L 113/55 L Pulse Oximetry 97 Oxygen Delivery Method 05/09/25 08:30 05/09/25 09:00 05/09/25 09:00 Temperature Pulse Rate 68 64 Respiratory Rate 17 16 Blood Pressure 103/54 L Pulse Oximetry 96 96 Oxygen Delivery Method 05/09/25 09:30 05/09/25 09:30 05/09/25 09:47 Temperature Pulse Rate 67 Respiratory Rate 17 Blood Pressure 111/56 L 117/56 L Pulse Oximetry 99 Oxygen Delivery Method 05/09/25 09:47 05/09/25 10:00 05/09/25 10:00 Temperature Pulse Rate 65 66 Respiratory Rate 24 19 Blood Pressure 111/57 L Pulse Oximetry 99 98 Oxygen Delivery Method 05/09/25 10:30 05/09/25 10:30 05/09/25 10:59 Temperature Pulse Rate 63 75 Respiratory Rate 20 Blood Pressure 118/56 L Pulse Oximetry 100 98 Oxygen Delivery Method 05/09/25 11:00 Temperature Pulse Rate Respiratory Rate Blood Pressure 116/59 L Pulse Oximetry Oxygen Delivery Method <Yoni Nolasco, DO - Last Filed: 05/09/25 12:30> Orders Ordered: Discontinued Medications Ceftriaxone Sodium 1,000 mg/ (Sodium Chloride) 100 mls @ 200 mls/hr IV NOW ONE Stop: 05/09/25 09:31 Last Infusion: 05/09/25 10:29 Dose: Infused Documented By: Admin: 05/09/25 09:38 Dose: 200 mls/hr Documented By: CHERYLE Azithromycin 500 mg/ Dextrose 250 mls @ 250 mls/hr IV NOW ONE Stop: 05/09/25 09:31 Last Infusion: 05/09/25 12:24 Dose: Infused Documented By: Infusion: 05/09/25 12:20 Dose: 0 mls/hr Documented By: Infusion: 05/09/25 11:51 Dose: 0 mls/hr Documented By: Admin: 05/09/25 10:57 Dose: 250 mls/hr Documented By: ESTEFANY Vital Signs Vital signs: Vital Signs - 8 hr 05/09/25 05:28 05/09/25 05:29 05/09/25 05:29 Temperature Pulse Rate 71 69 Respiratory Rate Blood Pressure 136/82 Pulse Oximetry 98 97 Oxygen Delivery Method 05/09/25 05:30 05/09/25 05:40 05/09/25 06:17 Temperature 98.8 F Pulse Rate 68 69 101 H Respiratory Rate 16 38 H Blood Pressure 136/82 Pulse Oximetry 96 97 Oxygen Delivery Method Room Air 05/09/25 06:30 05/09/25 07:00 05/09/25 07:26 Temperature Pulse Rate 64 64 72 Respiratory Rate 24 25 H 21 Blood Pressure Pulse Oximetry 98 Oxygen Delivery Method 05/09/25 07:26 05/09/25 07:30 05/09/25 07:30 Temperature Pulse Rate 64 Respiratory Rate 17 Blood Pressure 115/57 L 110/53 L Pulse Oximetry 99 Oxygen Delivery Method 05/09/25 08:00 05/09/25 08:00 05/09/25 08:30 Temperature Pulse Rate 67 Respiratory Rate 20 Blood Pressure 113/56 L 113/55 L Pulse Oximetry 97 Oxygen Delivery Method 05/09/25 08:30 05/09/25 09:00 05/09/25 09:00 Temperature Pulse Rate 68 64 Respiratory Rate 17 16 Blood Pressure 103/54 L Pulse Oximetry 96 96 Oxygen Delivery Method 05/09/25 09:30 05/09/25 09:30 05/09/25 09:47 Temperature Pulse Rate 67 Respiratory Rate 17 Blood Pressure 111/56 L 117/56 L Pulse Oximetry 99 Oxygen Delivery Method 05/09/25 09:47 05/09/25 10:00 05/09/25 10:00 Temperature Pulse Rate 65 66 Respiratory Rate 24 19 Blood Pressure 111/57 L Pulse Oximetry 99 98 Oxygen Delivery Method 05/09/25 10:30 05/09/25 10:30 05/09/25 10:59 Temperature Pulse Rate 63 75 Respiratory Rate 20 Blood Pressure 118/56 L Pulse Oximetry 100 98 Oxygen Delivery Method 05/09/25 11:00 Temperature Pulse Rate Respiratory Rate Blood Pressure 116/59 L Pulse Oximetry Oxygen Delivery Method Medical Decision Making <Avila Kamara MD - Last Filed: 05/10/25 02:38> Lab Data Lab results reviewed: Yes I reviewed the patient's lab results. Lab results narrative: White blood cell count 4800, hemoglobin 12.6, platelets adequate. Glucose 113. Normal renal function. Normal serum CO2 and electrolytes. Liver functions and lipase normal. Lactate 0.8 normal. Troponin negative/unmeasurable. BNP not elevated. Urine test negative. Urinalysis negative. Urine drug screen positive for benzodiazepine otherwise negative. Ethanol negative. 05/09/25 06:10 05/09/25 06:10 Labs: Lab Results 05/09/25 05/09/25 05/09/25 Range/Units 06:10 06:19 06:19 WBC 4.8 (4.5-11.0) X10^3/uL RBC 4.22 (4.0-5.2) X10^6/uL Hgb 12.6 (12.0-16.0) g/dL Hct 38.5 (36-46) % MCV 91.3 (80-100) fL MCH 29.9 (26-34) PG MCHC 32.7 (30-36) % RDW 14.9 H (11.6-14.8) % Plt Count 240 (150-400) X10^3/uL Neut % (Auto) 53.8 (50-75) % Lymph % (Auto) 33.5 (25-40) % [place] % (Auto) 8.0 (3-14) % Eos % (Auto) 3.3 (2-4) % Baso % (Auto) 1.4 (0-2) % Neut # (Auto) 2600 (9388-2875) /uL Lymph # (Auto) 1600 (3787-5263) /uL [place] # (Auto) 400 (0-900) /uL Eos # (Auto) 200 (0-450) /uL Baso # (Auto) 100 (0-100) /uL D-Dimer 856 H (<500) ng/ml Sodium 140 (137-145) mmol/L Potassium 3.7 (3.4-5.1) mmol/L Chloride 109 H (98-107) mmol/L Carbon Dioxide 22 (22-32) mmol/L BUN 13 (7-17) mg/dL Creatinine 0.78 (0.52-1.04) mg/dL Estimated GFR > 60 (>60) mL/min BUN/Creatinine Ratio 16.7 (6-22) Glucose 113 H (70-99) mg/dL Lactate 0.8 (0.7-2.1) mmol/L Calcium 9.3 (8.4-10.2) mg/dL Magnesium 2.1 (1.6-2.3) mg/dL Total Bilirubin 0.9 (0.2-1.3) mg/dL AST 38 H (14-36) IU/L ALT 29 (<35) IU/L Alkaline Phosphatase 84 (38-126) U/L Troponin I < 0.012 (0.01-0.034) ng/mL NT-Pro-B Natriuret Pep 71 (<125) pg/mL Total Protein 7.6 (6.3-8.2) g/dL Albumin 4.6 (3.5-5.0) g/dL Globulin 3.0 (1.7-4.1) g/dL Albumin/Globulin Ratio 1.5 (1.0-2.8) Lipase 211 (23-300) U/L Urine Color Yellow Urine Appearance Clear Urine pH 5.5 TNP (4.5-8.0) Ur Specific [place] >=1.030 H (1.000-1.035) Urine Protein 1+ H (Negative) Urine Glucose (UA) Negative (Negative) g/dL Urine Ketones Negative (NEGATIVE) Urine Occult Blood Negative (Negative) Urine Nitrate Negative (Negative) Urine Bilirubin 1+ H (NEGATIVE) Ur Bilirubin Confirm Negative (Negative) Urine Urobilinogen 1.0 (0.2) E.U./dL Ur Leukocyte Esterase Negative (NEGATIVE) Urine RBC None seen (0-5/HPF) Urine WBC None seen (0-5/HPF) Ur Squamous Epith Cells 0-1 /hpf (0-5/HPF) Calcium Oxalate Crystal Moderate H Urine Bacteria None seen (None) Ur Culture Indicated? Cult not indicated Vol Urine Centrifuged 10ml (spun) Urine Test Negative (Negative) U Opiates 300ng/mL cut Negative (Negative) Ur Oxycodone Screen Negative (Negative) Urine Methadone Screen Negative (Negative) Ur Barbiturates Screen Negative (Negative) U Tricyclic Antidepress Negative (Negative) Ur Phencyclidine Scrn Negative (Negative) Ur Amphetamines Screen Negative (Negative) U Methamphetamines Scrn Negative (Negative) Ur MDMA Scrn (Ecstasy) Negative (Negative) U Benzodiazepines Scrn Positive H (Negative) Urine Cocaine Screen Negative (Negative) U Marijuana (THC) Screen Negative (Negative) Urine Specific [place] TNP Ethyl Alcohol < 10 (<10) mg/dL Ur Creatinine TNP SARS-CoV-2 (PCR) (Negative) Influenza A (RT-PCR) (NEGATIVE) Influenza B (RT-PCR) (NEGATIVE) RSV (PCR) (Negative) 05/09/25 05/09/25 Range/Units 06:25 08:48 WBC (4.5-11.0) X10^3/uL RBC (4.0-5.2) X10^6/uL Hgb (12.0-16.0) g/dL Hct (36-46) % MCV (80-100) fL MCH (26-34) PG MCHC (30-36) % RDW (11.6-14.8) % Plt Count (150-400) X10^3/uL Neut % (Auto) (50-75) % Lymph % (Auto) (25-40) % [place] % (Auto) (3-14) % Eos % (Auto) (2-4) % Baso % (Auto) (0-2) % Neut # (Auto) (8337-8117) /uL Lymph # (Auto) (4430-0561) /uL [place] # (Auto) (0-900) /uL Eos # (Auto) (0-450) /uL Baso # (Auto) (0-100) /uL D-Dimer (<500) ng/ml Sodium (137-145) mmol/L Potassium (3.4-5.1) mmol/L Chloride (98-107) mmol/L Carbon Dioxide (22-32) mmol/L BUN (7-17) mg/dL Creatinine (0.52-1.04) mg/dL Estimated GFR (>60) mL/min BUN/Creatinine Ratio (6-22) Glucose (70-99) mg/dL Lactate (0.7-2.1) mmol/L Calcium (8.4-10.2) mg/dL Magnesium (1.6-2.3) mg/dL Total Bilirubin (0.2-1.3) mg/dL AST (14-36) IU/L ALT (<35) IU/L Alkaline Phosphatase (38-126) U/L Troponin I < 0.012 (0.01-0.034) ng/mL NT-Pro-B Natriuret Pep (<125) pg/mL Total Protein (6.3-8.2) g/dL Albumin (3.5-5.0) g/dL Globulin (1.7-4.1) g/dL Albumin/Globulin Ratio (1.0-2.8) Lipase (23-300) U/L Urine Color Urine Appearance Urine pH (4.5-8.0) Ur Specific [place] (1.000-1.035) Urine Protein (Negative) Urine Glucose (UA) (Negative) g/dL Urine Ketones (NEGATIVE) Urine Occult Blood (Negative) Urine Nitrate (Negative) Urine Bilirubin (NEGATIVE) Ur Bilirubin Confirm (Negative) Urine Urobilinogen (0.2) E.U./dL Ur Leukocyte Esterase (NEGATIVE) Urine RBC (0-5/HPF) Urine WBC (0-5/HPF) Ur Squamous Epith Cells (0-5/HPF) Calcium Oxalate Crystal Urine Bacteria (None) Ur Culture Indicated? Vol Urine Centrifuged Urine Test (Negative) U Opiates 300ng/mL cut (Negative) Ur Oxycodone Screen (Negative) Urine Methadone Screen (Negative) Ur Barbiturates Screen (Negative) U Tricyclic Antidepress (Negative) Ur Phencyclidine Scrn (Negative) Ur Amphetamines Screen (Negative) U Methamphetamines Scrn (Negative) Ur MDMA Scrn (Ecstasy) (Negative) U Benzodiazepines Scrn (Negative) Urine Cocaine Screen (Negative) U Marijuana (THC) Screen (Negative) Urine Specific [place] Ethyl Alcohol (<10) mg/dL Ur Creatinine SARS-CoV-2 (PCR) Negative (Negative) Influenza A (RT-PCR) Flu a negative (NEGATIVE) Influenza B (RT-PCR) Flu b negative (NEGATIVE) RSV (PCR) Negative (Negative) ECG Data Attestation: I personally reviewed and interpreted this ECG as follows: Interpretation: 0534, normal sinus rhythm with ventricular response rate 63, no pacer spikes noted, no ST segment elevation or depression changes. RI 160, QRS 108, QTC 440. MDM Narrative Medical decision making narrative: 39-year-old female with complex medical and psychiatric history, had near syncopal episode with resolved symptoms, brought in by EMS. History of autism, anxiety, depression, cognitive impairment, prior anoxic brain injury. History of prolonged QT syndrome, VFib arrest in the past, AICD left upper chest. History of myoclonic seizures. Also has recent dental infection on Augmentin, with recent associated nonbloody diarrhea. Stool studies including C diff requested, if specimen obtained. Afebrile, sirs screen negative, no obvious traumatic injury, self assisted to the ground. DDx near syncopal episode consider diarrhea with dehydration, orthostatic hypotension, cardiac dysrhythmia/tachycardia/bradycardia, ACS, pulmonary embolus, aortic syndrome, seizure, Covid, pneumonia, UTI, sepsis, intoxication, psychogenic, other. Will obtain EKG, chest x-ray, labs. AICD interrogation requested. We will give 1 L IV crystalloid fluid bolus. EKG shows normal sinus rhythm, no pacer spikes noted, no obvious ischemia, normal intervals and voltage. Chest x-ray shows no acute changes. Left upper chest AICD with normal coursing wires noted. See tele radiology report. Initial lab data: White blood cell count 4800, hemoglobin 12.6, platelets adequate. Glucose 113. Normal renal function. Normal serum CO2 and electrolytes. Liver functions and lipase normal. Troponin negative/unmeasurable. BNP not elevated. Lactate 0.8 normal. Urine test negative. Urinalysis negative. Urine drug screen positive for benzodiazepine otherwise negative. Ethanol negative. COVID flu RSV negative. D-dimer pending. [employer] AICD interrogation report: No episodes VT/VF, no shocks delivered. No bradycardic events. No pacing interventions. D-dimer 856 elevated, renal function adequate. CT angiogram chest PE protocol ordered, with IV only CT abdomen and pelvis. 0700, CTA/CT studies to be performed. Interval repeat troponin to be drawn 0815, results of GI stool studies (if specimen obtained) pending. Signed out to oncoming ED shift physician Dr. Nolasco. Attempted to get stool specimen without any success. CT abdomen and pelvis showed no acute findings in the pelvis or abdomen. CTA PE study showed no PE scattered peripheral foci of ground-glass throughout the bilateral lung sim likely infectious in etiology. Patient given Rocephin and Zithromax here. Patient already has Augmentin at home being treated for dental infection will DC home on Zithromax. She has a upcoming appointment with parish worker Dr. Ang this . She also has a neurologist that she sees. Patient was offered admission but she declined and would like to go home and this was discussed in the presence of his her mom and sister at the bedside. Patient requested pacemaker to be interrogated twice for which I did speak with Consuelo from the pacemaker company dual-chamber AICD has 4 years left on the battery. There was atrial lead noises and so she has a upcoming appoint with Dr. Ang on potential discussion regarding lead wire replacement in light of this but no ventricular arrhythmias noted. We did give a dose of azithromycin here and she felt like the defibrillator pacemaker was going to fire again so I have asked her to stop taking the azithromycin that I have prescribed her and to follow up with you on . <Yoni Nolasco, DO - Last Filed: 05/09/25 12:30> Lab Data Labs: Lab Results 05/09/25 05/09/25 05/09/25 Range/Units 06:10 06:19 06:19 WBC 4.8 (4.5-11.0) X10^3/uL RBC 4.22 (4.0-5.2) X10^6/uL Hgb 12.6 (12.0-16.0) g/dL Hct 38.5 (36-46) % MCV 91.3 (80-100) fL MCH 29.9 (26-34) PG MCHC 32.7 (30-36) % RDW 14.9 H (11.6-14.8) % Plt Count 240 (150-400) X10^3/uL Neut % (Auto) 53.8 (50-75) % Lymph % (Auto) 33.5 (25-40) % [place] % (Auto) 8.0 (3-14) % Eos % (Auto) 3.3 (2-4) % Baso % (Auto) 1.4 (0-2) % Neut # (Auto) 2600 (3732-3571) /uL Lymph # (Auto) 1600 (9955-0929) /uL [place] # (Auto) 400 (0-900) /uL Eos # (Auto) 200 (0-450) /uL Baso # (Auto) 100 (0-100) /uL D-Dimer 856 H (<500) ng/ml Sodium 140 (137-145) mmol/L Potassium 3.7 (3.4-5.1) mmol/L Chloride 109 H (98-107) mmol/L Carbon Dioxide 22 (22-32) mmol/L BUN 13 (7-17) mg/dL Creatinine 0.78 (0.52-1.04) mg/dL Estimated GFR > 60 (>60) mL/min BUN/Creatinine Ratio 16.7 (6-22) Glucose 113 H (70-99) mg/dL Lactate 0.8 (0.7-2.1) mmol/L Calcium 9.3 (8.4-10.2) mg/dL Magnesium 2.1 (1.6-2.3) mg/dL Total Bilirubin 0.9 (0.2-1.3) mg/dL AST 38 H (14-36) IU/L ALT 29 (<35) IU/L Alkaline Phosphatase 84 (38-126) U/L Troponin I < 0.012 (0.01-0.034) ng/mL NT-Pro-B Natriuret Pep 71 (<125) pg/mL Total Protein 7.6 (6.3-8.2) g/dL Albumin 4.6 (3.5-5.0) g/dL Globulin 3.0 (1.7-4.1) g/dL Albumin/Globulin Ratio 1.5 (1.0-2.8) Lipase 211 (23-300) U/L Urine Color Yellow Urine Appearance Clear Urine pH 5.5 TNP (4.5-8.0) Ur Specific [place] >=1.030 H (1.000-1.035) Urine Protein 1+ H (Negative) Urine Glucose (UA) Negative (Negative) g/dL Urine Ketones Negative (NEGATIVE) Urine Occult Blood Negative (Negative) Urine Nitrate Negative (Negative) Urine Bilirubin 1+ H (NEGATIVE) Ur Bilirubin Confirm Negative (Negative) Urine Urobilinogen 1.0 (0.2) E.U./dL Ur Leukocyte Esterase Negative (NEGATIVE) Urine RBC None seen (0-5/HPF) Urine WBC None seen (0-5/HPF) Ur Squamous Epith Cells 0-1 /hpf (0-5/HPF) Calcium Oxalate Crystal Moderate H Urine Bacteria None seen (None) Ur Culture Indicated? Cult not indicated Vol Urine Centrifuged 10ml (spun) Urine Test Negative (Negative) U Opiates 300ng/mL cut Negative (Negative) Ur Oxycodone Screen Negative (Negative) Urine Methadone Screen Negative (Negative) Ur Barbiturates Screen Negative (Negative) U Tricyclic Antidepress Negative (Negative) Ur Phencyclidine Scrn Negative (Negative) Ur Amphetamines Screen Negative (Negative) U Methamphetamines Scrn Negative (Negative) Ur MDMA Scrn (Ecstasy) Negative (Negative) U Benzodiazepines Scrn Positive H (Negative) Urine Cocaine Screen Negative (Negative) U Marijuana (THC) Screen Negative (Negative) Urine Specific [place] TNP Ethyl Alcohol < 10 (<10) mg/dL Ur Creatinine TNP SARS-CoV-2 (PCR) (Negative) Influenza A (RT-PCR) (NEGATIVE) Influenza B (RT-PCR) (NEGATIVE) RSV (PCR) (Negative) 05/09/25 05/09/25 Range/Units 06:25 08:48 WBC (4.5-11.0) X10^3/uL RBC (4.0-5.2) X10^6/uL Hgb (12.0-16.0) g/dL Hct (36-46) % MCV (80-100) fL MCH (26-34) PG MCHC (30-36) % RDW (11.6-14.8) % Plt Count (150-400) X10^3/uL Neut % (Auto) (50-75) % Lymph % (Auto) (25-40) % [place] % (Auto) (3-14) % Eos % (Auto) (2-4) % Baso % (Auto) (0-2) % Neut # (Auto) (0895-7983) /uL Lymph # (Auto) (4304-6114) /uL [place] # (Auto) (0-900) /uL Eos # (Auto) (0-450) /uL Baso # (Auto) (0-100) /uL D-Dimer (<500) ng/ml Sodium (137-145) mmol/L Potassium (3.4-5.1) mmol/L Chloride (98-107) mmol/L Carbon Dioxide (22-32) mmol/L BUN (7-17) mg/dL Creatinine (0.52-1.04) mg/dL Estimated GFR (>60) mL/min BUN/Creatinine Ratio (6-22) Glucose (70-99) mg/dL Lactate (0.7-2.1) mmol/L Calcium (8.4-10.2) mg/dL Magnesium (1.6-2.3) mg/dL Total Bilirubin (0.2-1.3) mg/dL AST (14-36) IU/L ALT (<35) IU/L Alkaline Phosphatase (38-126) U/L Troponin I < 0.012 (0.01-0.034) ng/mL NT-Pro-B Natriuret Pep (<125) pg/mL Total Protein (6.3-8.2) g/dL Albumin (3.5-5.0) g/dL Globulin (1.7-4.1) g/dL Albumin/Globulin Ratio (1.0-2.8) Lipase (23-300) U/L Urine Color Urine Appearance Urine pH (4.5-8.0) Ur Specific [place] (1.000-1.035) Urine Protein (Negative) Urine Glucose (UA) (Negative) g/dL Urine Ketones (NEGATIVE) Urine Occult Blood (Negative) Urine Nitrate (Negative) Urine Bilirubin (NEGATIVE) Ur Bilirubin Confirm (Negative) Urine Urobilinogen (0.2) E.U./dL Ur Leukocyte Esterase (NEGATIVE) Urine RBC (0-5/HPF) Urine WBC (0-5/HPF) Ur Squamous Epith Cells (0-5/HPF) Calcium Oxalate Crystal Urine Bacteria (None) Ur Culture Indicated? Vol Urine Centrifuged Urine Test (Negative) U Opiates 300ng/mL cut (Negative) Ur Oxycodone Screen (Negative) Urine Methadone Screen (Negative) Ur Barbiturates Screen (Negative) U Tricyclic Antidepress (Negative) Ur Phencyclidine Scrn (Negative) Ur Amphetamines Screen (Negative) U Methamphetamines Scrn (Negative) Ur MDMA Scrn (Ecstasy) (Negative) U Benzodiazepines Scrn (Negative) Urine Cocaine Screen (Negative) U Marijuana (THC) Screen (Negative) Urine Specific [place] Ethyl Alcohol (<10) mg/dL Ur Creatinine SARS-CoV-2 (PCR) Negative (Negative) Influenza A (RT-PCR) Flu a negative (NEGATIVE) Influenza B (RT-PCR) Flu b negative (NEGATIVE) RSV (PCR) Negative (Negative) Imaging Data CT scan - abdomen/pelvis: Radiologist's Impression: [address] [address] [address] Scan Report Signed Patient: Consuelo Samayoa MR#: [id number] : 1985 Acct:[id number] Age/Sex: 39 / F Date of Service: 05/09/25 Loc: ED Accession Number: [id number] Procedure: CT angio chest PE protocol Ordering Provider: Avila Kamara MD PROCEDURE: CT ANGIO CHEST PE PROTOCOL INDICATIONS: near syncope, Ddimer+ TECHNIQUE: After the administration of intravenous contrast, 2 mm thick sections acquired from the pulmonary apices to the posterior costophrenic angles. 3-dimensional maximum intensity projection (MIP) coronal and sagittal reformats were then acquired through the thorax. For radiation dose reduction, the following was used: automated exposure control, adjustment of mA and/or kV according to patient size. COMPARISON: [facility], CT, CT ANGIO CHEST PE, 05/26/2024, 2:25. FINDINGS: Image quality: Nondiagnostic for pulmonary embolism detection. Pulmonary arteries: Pulmonary arteries are normal in size. Exam is technically nondiagnostic for the detection of pulmonary embolism due to poor opacification of the main pulmonary artery (Hounsfield units of 175, diagnostic is 250 or greater). However, no findings concerning for central pulmonary embolism. Lower Neck: No enlarged lymph nodes. Thyroid: No thyroid nodules which require sonographic follow up, per consensus guidelines. Axillae: No enlarged lymph nodes. Chest Wall: Left chest wall pacemaker. Bones: Unremarkable. Lungs and Pleura: No pneumothorax or pleural effusions. Scattered peripheral foci of ground-glass throughout the bilateral lung sim Heart: Heart size is normal. No pericardial effusion. Thoracic Vessels: No aortic aneurysm. Mediastinum and Kadie: No enlarged lymph nodes. Esophagus: No wall thickening. No hiatal hernia. Upper Abdomen: Separately dictated. IMPRESSION: While exam is technically nondiagnostic for detection of pulmonary embolism as described above, no findings concerning for central pulmonary emboli. Scattered peripheral foci of ground-glass throughout the bilateral lung sim, likely infectious in etiology. [address] [address] [address] Scan Report Signed Patient: Consuelo Samayoa MR#: [id number] : 1985 Acct:[id number] Age/Sex: 39 / F Date of Service: 05/09/25 Loc: ED Accession Number: [id number] Procedure: CT abdomen pelvis w con Ordering Provider: Avila Kamara MD PROCEDURE: CT ABDOMEN PELVIS W CON INDICATIONS: naer syncope TECHNIQUE: After the administration of intravenous contrast, axial sections acquired from the lung bases to the pubic symphysis. Coronal and sagittal reformats were performed. For radiation dose reduction, the following was used: automated exposure control, adjustment of mA and/or kV according to patient size. COMPARISON: None. FINDINGS: Image quality: Diagnostic. Lower Chest: Separately dictated. ABDOMEN: Liver: Hepatic steatosis. Gallbladder: Surgically absent. Biliary ducts: No biliary dilation. Pancreas: No ductal dilation. Spleen: Size is within normal limits. Adrenal Glands: No adrenal nodules. Kidneys and Ureters: No hydronephrosis. No solid mass. No complex renal cystic lesion which requires follow up. Stomach and Bowel: Normal colonic caliber, without significant wall thickening. Normal appendix. Peritoneum: No abnormal intraperitoneal fluid. No free air. Ventral Wall: No significant ventral hernia. Abdominal Nodes: No retroperitoneal or mesenteric adenopathy by size criteria. Vessels: Aorta and inferior vena cava are normal in size. PELVIS: Pelvic Organs: Intrauterine device in place. Bladder: No bladder wall thickening, accounting for underdistention. Pelvic Nodes: No enlarged lymph nodes. Miscellaneous: No inguinal hernias are seen. Bones: No aggressive osseous abnormality. IMPRESSION: 1. No acute findings within the abdomen or pelvis. 2. Please see above for additional findings. MDM Narrative Medical decision making narrative: 39-year-old female with complex medical and psychiatric history, had near syncopal episode with resolved symptoms, brought in by EMS. History of autism, anxiety, depression, cognitive impairment, prior anoxic brain injury. History of prolonged QT syndrome, VFib arrest in the past, AICD left upper chest. History of myoclonic seizures. Also has recent dental infection on Augmentin, with recent associated nonbloody diarrhea. Stool studies including C diff requested, if specimen obtained. Afebrile, sirs screen negative, no obvious traumatic injury, self assisted to the ground. DDx near syncopal episode consider diarrhea with dehydration, orthostatic hypotension, cardiac dysrhythmia/tachycardia/bradycardia, ACS, pulmonary embolus, aortic syndrome, seizure, Covid, pneumonia, UTI, sepsis, intoxication, psychogenic, other. Will obtain EKG, chest x-ray, labs. AICD interrogation requested. We will give 1 L IV crystalloid fluid bolus. EKG shows normal sinus rhythm, no pacer spikes noted, no obvious ischemia, normal intervals and voltage. Chest x-ray shows no acute changes. Left upper chest AICD with normal coursing wires noted. See tele radiology report. Initial lab data: White blood cell count 4800, hemoglobin 12.6, platelets adequate. Glucose 113. Normal renal function. Normal serum CO2 and electrolytes. Liver functions and lipase normal. Troponin negative/unmeasurable. BNP not elevated. Lactate 0.8 normal. Urine test negative. Urinalysis negative. Urine drug screen positive for benzodiazepine otherwise negative. Ethanol negative. COVID flu RSV negative. D-dimer pending. [employer] AICD interrogation report: No episodes VT/VF, no shocks delivered. No bradycardic events. No pacing interventions. D-dimer 800s elevated, renal function adequate. CT angiogram chest PE protocol ordered, with IV only CT abdomen and pelvis. 0700, CTA/CT to be performed. Interval repeat troponin to be drawn 0815, results of GI stool studies (if specimen obtained) pending. Signed out to oncoming ED shift physician Dr. Nolasco. Attempted to get stool specimen without any success. CT abdomen and pelvis showed no acute findings in the pelvis or abdomen. CTA PE study showed no PE scattered peripheral foci of ground-glass throughout the bilateral lung sim likely infectious in etiology. Patient given Rocephin and Zithromax here. Patient already has Augmentin at home being treated for dental infection will DC home on Zithromax. She has a upcoming appointment with parish worker Dr. Ang this . She also has a neurologist that she sees. Patient was offered admission but she declined and would like to go home and this was discussed in the presence of his her mom and sister at the bedside. Patient requested pacemaker to be interrogated twice for which I did speak with Consuelo from the pacemaker company dual-chamber AICD has 4 years left on the battery. There was atrial lead noises and so she has a upcoming appoint with Dr. Ang on potential discussion regarding lead wire replacement in light of this but no ventricular arrhythmias noted. We did give a dose of azithromycin here and she felt like the defibrillator pacemaker was going to fire again so I have asked her to stop taking the azithromycin that I have prescribed her and to follow up with you on . Discharge Plan Departure Patient Disposition: Home Clinical Impression: Near syncope Pneumonia Qualifiers: Pneumonia type: due to unspecified organism Laterality: bilateral Lung location: lower lobe of lung Qualified Code(s): J18.9 - Pneumonia, unspecified organism Pacemaker complications Qualifiers: Encounter type: initial encounter Qualified Code(s): T82.9XXA - Unspecified complication of cardiac and vascular prosthetic device, implant and graft, initial encounter Instructions: DI for Syncope in Adults (Fainting) Activity Restrictions/Additional Instructions: Return with new or worsening symptoms. Follow up with parish worker appointment this with Dr. Ang. Please follow up with PCP and/or neurologist this week or next week for continuity of care follow up from ER. Prescriptions: New azithromycin 250 mg tablet 250 mg PO DAILY 4 Days Qty: 4 0RF Rx Instructions: start on day 2 of therapy No Action levonorgestrel [Mirena] 20 mcg/24 hr (5 years) intrauterine device 1 ea Intrauterine DIRECTED coenzyme Q10 [Co Q-10] 100 mg capsule 200 mg PO BID topiramate [Topamax] 25 mg tablet 25 mg PO BID cholecalciferol (vitamin D3) 25 mcg (1,000 unit) capsule 2,000 unit PO BID acetaminophen [Tylenol Extra Strength] 500 mg tablet 500 mg PO Q6H PRN amiodarone 200 mg tablet 200 mg PO DAILY propranolol 120 mg capsule,extended release 24 hr 120 mg PO BID mexiletine 150 mg capsule 300 mg PO .COMPLEX Rx Instructions: 300 mg PO 2 caps in the am and 1 cap in the pm; lamotrigine 25 mg tablet 25 mg PO BID Patient Comments: TAKE 1 TABLET BY MOUTH TWICE A DAY IN ADDITION TO 150 MG TABLET cyanocobalamin (vitamin B-12) 1,000 mcg capsule 1,000 mcg PO DAILY calcium carbonate [Tums] 200 mg calcium (500 mg) tablet,chewable 200 mg PO QID PRN simethicone [Gas-X Extra Strength] 125 mg tablet,chewable 125 mg PO BID-QID PRN clotrimazole 1 % cream 1 applic topical TID PRN Ubrelvy 50 mg tablet 50 mg PO DAILY PRN Rx Instructions: as a single dose; may repeat once in >=2 hours after first dose if needed Zafemy 150-35 mcg/24 hr patch weekly 1 patch transdermal Q7D Rx Instructions: apply once weekly for 3 weeks of a 4-week cycle mirtazapine 15 mg tablet 7.5 mg PO BEDTIME Qty: 30 3RF rosuvastatin 20 mg tablet 20 mg PO DAILY duloxetine 30 mg capsule,delayed release(DR/EC) 30 mg PO BID Qty: 180 3RF lorazepam 0.5 mg tablet 0.5 mg PO BID MDD 2MG Qty: 60 2RF Rx Instructions: May take an additional 0.5 to 1 mg as needed for severe anxiety or seizure pantoprazole 40 mg tablet,delayed release (DR/EC) 40 mg PO DAILY Qty: 30 levetiracetam 750 mg tablet 1,500 mg PO BID lamotrigine 150 mg tablet 150 mg PO BID Rx Instructions: in addition to 25mg tablet for a total of 175mg BID norethindrone (contraceptive) 0.35 mg tablet 0.35 mg PO DAILY vitamin B complex 1 ea PO DAILY benzonatate 200 mg capsule 200 mg PO TID PRN Patient Comments: TAKE 1 CAPSULE BY MOUTH EVERY 8 HOURS NEEDED FOR COUGH prescribed by PCP Dr. Chung aripiprazole 2 mg tablet 2 mg PO DAILY Qty: 30 1RF magnesium oxide 500 mg Tablet 500 mg PO BID potassium chloride 20 mEq tablet,ER particles/crystals 20 meq PO BID calcium citrate-vitamin D3 200 mg-3.125 mcg (125 unit) tablet 2 tab PO QPM Referrals: Jennifer Chung DO [Primary Care Provider, [employer]] Stand Alone Forms: Patient Portal/API
--- NOTE | 2025-05-09 05:28 | DI.RAD.S_ITS ---
PROCEDURE: XR CHEST 1V INDICATIONS: syncope TECHNIQUE: One view of the chest was acquired. COMPARISON: [facility], CR, XR CHEST 1V, 04/10/2019, 18:45. FINDINGS: Surgical changes and devices: Left-sided cardiac pacer device is in place. Lungs and pleura: Lungs are clear. No pleural effusions or pneumothorax. Mediastinum: Mediastinal contours appear normal. Heart size is normal. Bones and chest wall: No suspicious bony lesions. Overlying soft tissues appear unremarkable. IMPRESSION: No acute cardiopulmonary abnormalities or focal consolidation. No significant discrepancy with the night baker radiology preliminary report. Dictated by: Roosevelt Romero M.D. on 05/09/2025 at 7:05 Approved by: Roosevelt Romero M.D. on 05/09/2025 at 7:06
--- NOTE | 2025-05-09 05:34 | EKG_ITS ---
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
[2025-05-09 06:19] LABS: Add Manual Diff / Slide Review NO; Hematocrit 38.5 % (36-46); Hemoglobin 12.6 g/dL (12.0-16.0); Lymphocytes Absolute Auto 1600 /uL (1100-4500); Mean Corpuscular HGB Conc 32.7 % (30-36); Mean Corpuscular Hemoglobin 29.9 PG (26-34); Mean Corpuscular Volume 91.3 fL (80-100); Platelet Count 240 X10^3/uL (150-400)
[2025-05-09 06:30] LABS: Lactate (Lactic Acid) 0.8 mmol/L (0.7-2.1)
[2025-05-09 06:31] LABS: Alanine Aminotransferase 29 IU/L (<35); Albumin 4.6 g/dL (3.5-5.0); Albumin Globulin Ratio 1.5 (1.0-2.8); Alkaline Phosphatase 84 U/L (38-126); Blood Urea Nitrogen 13 mg/dL (7-17); Calcium 9.3 mg/dL (8.4-10.2); Carbon Dioxide 22 mmol/L (22-32); Chloride 109 mmol/L (98-107); Estimated Glomerular Filt Rate > 60 mL/min (>60); Globulin 3.0 g/dL (1.7-4.1); Glucose 113 mg/dL (70-99); HEMOLYSIS < 15 (0-50); Lipase 211 U/L (23-300); Magnesium 2.1 mg/dL (1.6-2.3); Potassium 3.7 mmol/L (3.4-5.1); Sodium 140 mmol/L (137-145); Total Protein 7.6 g/dL (6.3-8.2)
[2025-05-09 06:32] LABS: Appearance Urine UA CLEAR; Bilirubin Urine UA 1+ (NEGATIVE); Color Urine UA YELLOW; Glucose Urine UA NEGATIVE (Negative); Ketones Urine UA NEGATIVE (NEGATIVE); Leukocyte Esterase Urine UA NEGATIVE (NEGATIVE); Nitrite Urine UA NEGATIVE (Negative); Occult Blood Urine UA NEGATIVE (Negative); Protein Urine UA 1+ (Negative); Specific Gravity Urine UA >=1.030 (1.000-1.035); Urobilinogen Urine UA 1.0 E.U./dL (0.2); pH Urine UA 5.5 (4.5-8.0)
[2025-05-09 06:39] LABS: UR Morphine/Opiate cutoff 300 Negative (Negative); Urine MDMA Negative (Negative); Urine Methamphetamines Negative (Negative); Urine Tetrahydrocannabinol Negative (Negative); Urine Tricyclic Antidepressant Negative (Negative)
[2025-05-09 06:40] LABS: Culture Indicated Urine Cult Not Indicated; Ictotest Urine Negative (Negative)
[2025-05-09 06:43] LABS: NT-proBNP (BNP-Adult 18+) 71 pg/mL (<125); Troponin I < 0.012 ng/mL (0.01-0.034)
--- NOTE | 2025-05-09 06:52 | DI.CT.S_ITS ---
PROCEDURE: CT ANGIO CHEST PE PROTOCOL INDICATIONS: near syncope, Ddimer+ TECHNIQUE: After the administration of intravenous contrast, 2 mm thick sections acquired from the pulmonary apices to the posterior costophrenic angles. 3-dimensional maximum intensity projection (MIP) coronal and sagittal reformats were then acquired through the thorax. For radiation dose reduction, the following was used: automated exposure control, adjustment of mA and/or kV according to patient size. COMPARISON: [facility], CT, CT ANGIO CHEST PE, 05/26/2024, 2:25. FINDINGS: Image quality: Nondiagnostic for pulmonary embolism detection. Pulmonary arteries: Pulmonary arteries are normal in size. Exam is technically nondiagnostic for the detection of pulmonary embolism due to poor opacification of the main pulmonary artery (Hounsfield units of 175, diagnostic is 250 or greater). However, no findings concerning for central pulmonary embolism. Lower Neck: No enlarged lymph nodes. Thyroid: No thyroid nodules which require sonographic follow up, per consensus guidelines. Axillae: No enlarged lymph nodes. Chest Wall: Left chest wall pacemaker. Bones: Unremarkable. Lungs and Pleura: No pneumothorax or pleural effusions. Scattered peripheral foci of ground-glass throughout the bilateral lung sim Heart: Heart size is normal. No pericardial effusion. Thoracic Vessels: No aortic aneurysm. Mediastinum and Kadie: No enlarged lymph nodes. Esophagus: No wall thickening. No hiatal hernia. Upper Abdomen: Separately dictated. IMPRESSION: While exam is technically nondiagnostic for detection of pulmonary embolism as described above, no findings concerning for central pulmonary emboli. Scattered peripheral foci of ground-glass throughout the bilateral lung sim, likely infectious in etiology. Dictated by: Jimmy Cisneros M.D. on 05/09/2025 at 8:01 Approved by: Jimmy Cisneros M.D. on 05/09/2025 at 8:17
--- NOTE | 2025-05-09 06:53 | DI.CT.S_ITS ---
PROCEDURE: CT ABDOMEN PELVIS W CON INDICATIONS: naer syncope TECHNIQUE: After the administration of intravenous contrast, axial sections acquired from the lung bases to the pubic symphysis. Coronal and sagittal reformats were performed. For radiation dose reduction, the following was used: automated exposure control, adjustment of mA and/or kV according to patient size. COMPARISON: None. FINDINGS: Image quality: Diagnostic. Lower Chest: Separately dictated. ABDOMEN: Liver: Hepatic steatosis. Gallbladder: Surgically absent. Biliary ducts: No biliary dilation. Pancreas: No ductal dilation. Spleen: Size is within normal limits. Adrenal Glands: No adrenal nodules. Kidneys and Ureters: No hydronephrosis. No solid mass. No complex renal cystic lesion which requires follow up. Stomach and Bowel: Normal colonic caliber, without significant wall thickening. Normal appendix. Peritoneum: No abnormal intraperitoneal fluid. No free air. Ventral Wall: No significant ventral hernia. Abdominal Nodes: No retroperitoneal or mesenteric adenopathy by size criteria. Vessels: Aorta and inferior vena cava are normal in size. PELVIS: Pelvic Organs: Intrauterine device in place. Bladder: No bladder wall thickening, accounting for underdistention. Pelvic Nodes: No enlarged lymph nodes. Miscellaneous: No inguinal hernias are seen. Bones: No aggressive osseous abnormality. IMPRESSION: 1. No acute findings within the abdomen or pelvis. 2. Please see above for additional findings. Dictated by: Jimmy Cisneros M.D. on 05/09/2025 at 8:17 Approved by: Jimmy Cisneros M.D. on 05/09/2025 at 8:28
[2025-05-09 07:05] LABS: Ethanol (ETOH) < 10 mg/dL (<10)
[2025-05-09 07:07] LABS: COVID-19 CEPHEID 4-PLEX PCR Negative (Negative); Influenza A - CEPHEID Flu A NEGATIVE (NEGATIVE); Influenza B - CEPHEID Flu B NEGATIVE (NEGATIVE)
[2025-05-09 09:25] LABS: Troponin I < 0.012 ng/mL (0.01-0.034)
[2025-05-09] MEDS: AZITHROMYCIN 500 MG in DEXTROSE 5% IN WATER 250 ML 250 MG IV (10:57)
--- NOTE | 2025-05-09 11:28 | EKG_ITS ---
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
--- NOTE | 2025-05-09 13:08 | PC.NURSE ---
Pt began asking for RN to stop antibiotic and remove IV. Abx stopped by RN, pt was informed of risks of removing IV before ready for discharge. Pt asked repeatedly to take IV out stating I can feel it in my chest. IV removed by RN notified. Pt requested another ICD interrogation due to feeling like ICD was about to shock her. EKG performed, MD notified and interrogation performed.
[2025-05-10 06:36] LABS: Labcorp Creatine Kinase MB <1.0 ng/mL (0.0-5.3)
== END 2025-05-09 13:12 | disposition home or self-care (01) ==
PROVIDERS: Emergency Medicine; Emergency Provider Family Medicine; Family Provider Obstetrics & Gynecology; PCP Obstetrics & Gynecology
DX: R55 Syncope and collapse (principal); J18.9 Pneumonia, unspecified organism; T82.9XXA Unspecified complication of cardiac and vascular prosthetic device, implant and graft, initial encounter; G40.409 Other generalized epilepsy and epileptic syndromes, not intractable, without status epilepticus
CPT/HCPCS: 36415; 71045; 71275; 74177; 80053; 80305; 80320; 81001; 81025; 82553; 83605; 83690; 83735; 83880; 84484; 85025; 85379; 87637; 93005; 96365; 96367; 99284; 99285; J0696; J7050; J7060; Q9967

== ENCOUNTER → 2025-05-29 14:10 | Outpatient (CLI) | payer MEDICARE, MEDICAID, SELFPAY ==
[2025-05-29 15:16] LABS: Influenza A - CEPHEID Flu A NEGATIVE (NEGATIVE); Influenza B - CEPHEID Flu B NEGATIVE (NEGATIVE)
[2025-05-29 15:25] LABS: COVID-19 CEPHEID 4-PLEX PCR Negative (Negative)
== END ==
PROVIDERS: Family Provider Obstetrics & Gynecology; PCP Obstetrics & Gynecology; Visit Provider Nurse Practitioner Family
DX: R05.1 Acute cough (principal); J02.9 Acute pharyngitis, unspecified
CPT/HCPCS: 87070; 87637

== ENCOUNTER → 2025-05-29 15:06 | Outpatient (CLI) | payer MEDICARE, MEDICAID, SELFPAY ==
--- NOTE | 2025-05-29 15:07 | DI.RAD.S_ITS ---
PROCEDURE: XR CHEST 2V INDICATIONS: Chest congestion TECHNIQUE: 2 views of the chest were acquired. COMPARISON: [facility], CR, XR CHEST 1V, 05/09/2025, 5:36. FINDINGS: Heart, mediastinum and pulmonary vascular: Heart is mildly enlarged but unchanged. Dual-chamber pacemaker leads in stable satisfactory position without complication. Mediastinum is unremarkable. Pulmonary vascular is slightly distended . Lungs: Mild central peribronchovascular edema. No infiltrates Pleural spaces: Normal-no effusions or pneumothorax. Bones and soft tissues: Normal IMPRESSION: Mild CHF or volume overload Dictated by: Yoni Yang M.D. on 05/30/2025 at 12:50 Approved by: Yoni Yang M.D. on 05/30/2025 at 12:51
== END ==
PROVIDERS: Family Provider Obstetrics & Gynecology; PCP Obstetrics & Gynecology; Referring Provider Obstetrics & Gynecology; Visit Provider Nurse Practitioner Family
DX: J02.9 Acute pharyngitis, unspecified (principal); R05.1 Acute cough; R09.89 Other specified symptoms and signs involving the circulatory and respiratory systems
CPT/HCPCS: 71046; 87070; 87637